=== PATIENT | female | born 1975 ===

== ENCOUNTER 2016-10-18 11:48 | Inpatient (IN) | payer MEDICAID ==
[2016-10-18 13:11] LABS: ADD MANUAL DIFF? NO
[2016-10-18 13:16] LABS: BASO # 0.02 K/mm3 (0.0-2.0); BASO % 0.2 % (0.0-3.0); EOS # 0.2 (0.0-0.7); EOS % 1.5 % (1.5-5.0); GRAN # 8.83 (1.4-6.5); GRAN % 79.9 % (50.0-68.0); HEMATOCRIT 36.5 % (36.0-48.0); LYMPH # 1.2 (1.2-3.4); LYMPH % 10.9 % (22.0-35.0); MEAN CELL VOLUME 88.2 fL (80.0-105.0); MEAN CORPUSCULAR HEMOGLOBIN 29.5 pg (25.0-35.0); MEAN CORPUSCULAR HGB CONC 33.4 g/dl (31.0-37.0); MEAN PLATELET VOLUME 9.9 fl (7.0-11.0); MONO # 0.8 (0.1-0.6); MONO % 7.5 % (1.0-6.0); PLATELET COUNT 233 10^3/uL (120.0-450.0); RED CELL DISTRIBUTION WIDTH 15.5 % (11.5-14.5); WHITE BLOOD COUNT 11.1 10^3/ul (4.5-11.0)
[2016-10-18 13:24] LABS: INR 0.96 (0.93-1.08); PARTIAL THROMBOPLASTIN TIME 24.2 Seconds (23.7-30.8)
[2016-10-18 13:25] LABS: ALB/GLOB RATIO 1.4 (1.1-1.8); ALKALINE PHOSPHATASE 63 U/L (38-133); ALT/SGPT 23 U/L (7-56); AST/SGOT 19 U/L (15-39); BILIRUBIN,TOTAL 0.4 mg/dL (0.2-1.3); BLOOD UREA NITROGEN 13 mg/dL (7-21); CALCIUM 9.3 mg/dL (8.4-10.5); CARBON DIOXIDE 22 mmol/L (21-33); CHLORIDE 108 mmol/L (98-107); GFR AFRICAN-AMERICAN > 60; GLUCOSE,RANDOM 130 mg/dL (70-110); MAGNESIUM 2.1 mg/dL (1.7-2.2); POTASSIUM 3.4 mmol/L (3.6-5.0); SODIUM 139 mmol/L (132-148); TOTAL PROTEIN 6.9 g/dL (5.8-8.3)
--- NOTE | 2016-10-18 13:37 | CT ---
PROCEDURE: CT HEAD WITHOUT CONTRAST. HISTORY: Sz vs Psych COMPARISON: 05/06/2016 TECHNIQUE: Axial computed tomography images were obtained through the head/brain without intravenous contrast. Radiation dose: Total exam DLP = 710.78 mGy-cm. This CT exam was performed using one or more of the following dose reduction techniques: Automated exposure control, adjustment of the mA and/or kV according to patient size, and/or use of iterative reconstruction technique. FINDINGS: HEMORRHAGE: No intracranial hemorrhage. BRAIN: There are scattered low-attenuation areas in the right parietal subcortical and periventricular white matter. There is no mass, mass effect or abnormal extra-axial fluid collection. VENTRICLES: There is mild global parenchymal volume loss and proportionate enlargement of the ventricles and cortical sulci, advanced for the patient's age. CALVARIUM: The skull base and calvarium are normal. PARANASAL SINUSES: Predominantly clear. MASTOID AIR CELLS: Predominantly clear. OTHER FINDINGS: None. IMPRESSION: No acute intracranial abnormality. Mild right periventricular and parietal subcortical white matter changes are strictly nonspecific. The differential considerations include gliosis, migraine headache effect, early chronic microangiopathic changes amongst others.
[2016-10-18] MEDS ORDERED: Potassium Chloride 20 mEq ER Tab PO STA (13:45)
--- NOTE | 2016-10-18 13:45 | ED PDOC ---
Arrival/HPI - General Chief Complaint: Altered Mental Status Time Seen by Provider: 10/18/16 12:12 Historian: Patient, EMS EM Caveat: Altered Mental Status - History of Present Illness Narrative History of Present Illness (Text): 10/18/16 12:20 A 40 year old female, whose past medical history includes anxiety and depression , who is brought into the emergency department via EMS. EMS states they were called my the patient's son this morning stating the patient is confused and had seizure like" activities. Patient denies any tongue bitting, diarrhea or blood in the stool or urine. Patient appears to the altered and HPI and ROS is limited. PMD: Dr. Ugarte Time/Duration: Prior to Arrival Symptom Onset: Sudden Past Medical History - Provider Review Nursing Documentation Reviewed: Yes - Infectious Disease Hx of Infectious Diseases: None - Tetanus Immunization Tetanus Immunization: Unknown - Cardiac Hx Cardiac Disorders: No Hx Hypertension: No - Pulmonary Hx Respiratory Disorders: No Hx Tuberculosis: No - Neurological Hx Seizures: No - HEENT Hx HEENT Disorder: No - Renal Hx Renal Disorder: No - Endocrine/Metabolic Hx Endocrine Disorders: No - Hematological/Oncological Hx Cancer: No - Integumentary Hx Dermatological Disorder: No - Musculoskeletal/Rheumatological Hx Falls: No - Gastrointestinal Hx Gastrointestinal Disorders: No - Genitourinary/Gynecological Hx Sexually Transmitted Diseases: No - Psychiatric Hx Psychophysiologic Disorder: Yes Hx Anxiety: Yes Hx Bipolar Disorder: Yes Hx Depression: Yes Hx Substance Use: No (denies) - Past Surgical History Past Surgical History: No Previous - Anesthesia Hx Anesthesia: No - Suicidal Assessment Feels Threatened In Home Enviroment: No Family/Social History - Physician Review Nursing Documentation Reviewed: Yes Family/Social History: Unknown Family HX Smoking Status: Former Smoker Hx Alcohol Use: No (denies) Hx Substance Use: No (denies) Hx Substance Use Treatment: No Allergies/Home Meds Allergies/Adverse Reactions: Allergies No Known Allergies Allergy (Verified 10/01/16 14:23) Home Medications: Home Meds Medication Instructions Recorded Confirmed Amphetamine Salt Combination 10 mg PO BID 10/01/16 10/01/16 [Adderall] Quetiapine Fumarate [Seroquel] 300 mg PO BID 10/01/16 10/01/16 Venlafaxine [Effexor] 75 mg PO BID 10/01/16 10/01/16 Zolpidem [Ambien] 10 mg PO HS 10/01/16 10/01/16 clonazePAM [clonAZEPAM] 1 mg PO BID 10/01/16 10/01/16 Review of Systems - Review of Systems Systems not reviewed;Unavailable: Altered Mental Status Gastrointestinal: absent: Diarrhea, Hematochezia Genitourinary Female: absent: Hematuria Physical Exam - Physical Exam Physical Exam Limitations: Altered Mental Status Vital Signs Reviewed: Yes Vital Signs Temp Pulse Resp BP Pulse Ox 10/18/16 14:09 109 H 16 135/67 100 10/18/16 12:07 98.1 F 124 H 16 152/97 H 98 Temperature: Afebrile Blood Pressure: Hypertensive Pulse: Tachycardic Respiratory Rate: Normal Appearance: Positive for: Well-Appearing, Non-Toxic, Comfortable Pain Distress: None Mental Status: Positive for: Confused, other (Alert and Oriented x 2 ) Finger Stick Blood Glucose: 249 - Systems Exam Head: Present: Atraumatic, Normocephalic Pupils: Present: PERRL Extroacular Muscles: Present: EOMI Conjunctiva: Present: Normal Mouth: Present: Moist Mucous Membranes Neck: Present: Normal Range of Motion Respiratory/Chest: Present: Clear to Auscultation, Good Air Exchange. No: Respiratory Distress, Accessory Muscle Use Cardiovascular: Present: Tachycardic. No: Murmurs Abdomen: Present: Normal Bowel Sounds. No: Tenderness, Distention, Peritoneal Signs Upper Extremity: Present: Normal Inspection. No: Cyanosis, Edema Lower Extremity: Present: Normal Inspection. No: Edema Neurological: Present: GCS=15, CN II-XII Intact, Speech Normal, Motor Func Grossly Intact, Normal Sensory Function Skin: Present: Warm, Dry, Normal Color. No: Rashes Psychiatric: Present: Other (Awake and Alert x 2; patient is able to answer questions but no all questions) Medical Decision Making ED Course and Treatment: 10/18/2016 13:32 Impression: A 40 year old female status post questionable seizure. Differential Diagnosis included but are not limited to: Psychiatric disorder vs. new onset seizure Plan: -- EKG -- Head CT -- Labs -- Urinalysis -- Reassess and disposition Prior Visits: Notes and results from previous visits were reviewed. On 10/01/16 Patient was seen for depression and admitted. Progress Notes: EKG: Ordered, reviewed, and independently interpreted the EKG. Rate : 130 BPM Rhythm : Sinus Tachycardia Interpretation : Normal interval, normal axis, no ST/T changes 10/18/2016 13:37 Creator : Lena Brunner MD PROCEDURE: CT HEAD WITHOUT CONTRAST. HISTORY: Sz vs Psych COMPARISON: 05/06/2016 FINDINGS: HEMORRHAGE:No intracranial hemorrhage. BRAIN:There are scattered low-attenuation areas in the right parietal subcortical and periventricular white matter. There is no mass, mass effect or abnormal extra-axial fluid collection. VENTRICLES:There is mild global parenchymal volume loss and proportionate enlargement of the ventricles and cortical sulci, advanced for the patient's age. CALVARIUM:The skull base and calvarium are normal. PARANASAL SINUSES:Predominantly clear. MASTOID AIR CELLS:Predominantly clear. OTHER FINDINGS:None. IMPRESSION:No acute intracranial abnormality. Mild right periventricular and parietal subcortical white matter changes are strictly nonspecific. The differential considerations include gliosis, migraine headache effect, early chronic microangiopathic changes amongst others. 10/18/16 13:45 Patient had a low potassium count, will give K-Dur 10/18/16 14:[address] Alex, who is aware and agrees with the plan to admit the patient to Telemetry under her service for a new onset seizure. 10/18/16 14:24 Patient actively seizing in emergency department. The episode lasted for less than a minute, after which the patient was postictal. patient given 2 mg of Ativan. I have discussed the results and plan with the patient's son, who expresses understanding. Patient's son given the opportunity to ask question, all questions were answered and there is agreement with the plan to be admitted to the hospital. - Critical Care Critical Care Minutes: 45 minutes - Lab Interpretations Lab Results: 10/18/16 13:00 10/18/16 13:00 Lab Results 10/18/16 13:00: PT 10.4, INR 0.96, APTT 24.2 10/18/16 13:00: Alcohol, Quantitative < 10 10/18/16 13:00: Sodium 139, Potassium 3.4 L, Chloride 108 H, Carbon Dioxide 22, Anion Gap 12, BUN 13, Creatinine 1.0, Est GFR ( Amer) > 60, Est GFR (Non- Af Amer) > 60, Random Glucose 130 H, Calcium 9.3, Magnesium 2.1, Total Bilirubin 0.4, AST 19, ALT 23, Alkaline Phosphatase 63, Total Protein 6.9, Albumin 4.1, Globulin 2.9, Albumin/Globulin Ratio 1.4 10/18/16 13:00: WBC 11.1 H D, RBC 4.14, Hgb 12.2, Hct 36.5, MCV 88.2, MCH 29.5, MCHC 33.4, RDW 15.5 H, Plt Count 233, MPV 9.9, Gran % 79.9 H, Lymph % (Auto) 10.9 L, [place] % (Auto) 7.5 H, Eos % (Auto) 1.5, Baso % (Auto) 0.2, Gran # 8.83 H , Lymph # 1.2, [place] # 0.8 H, Eos # 0.2, Baso # 0.02 10/18/16 11:56: POC Glucose (mg/dL) 246 H I have reviewed the lab results: Yes - RAD Interpretation Radiology Orders: 10/18/16 12:38 HEAD W/O CONTRAST [CT] Stat - EKG Interpretation Interpreted by ED Physician: Yes Type: 12 lead EKG - Medication Orders Current Medication Orders: Sodium Chloride (Sodium Chloride 0.9%) 1,000 mls @ 100 mls/hr IV .Q10H TEJINDER Levetiracetam (Keppra 500mg Ivpb) 500 mg in 100 mls @ 200 mls/hr IVPB Q12H TEJINDER Lorazepam (Ativan) 1 mg IVP Q3 PRN; Protocol PRN Reason: Anxiety Pantoprazole Sodium (Protonix Inj) 40 mg IVP DAILY TEJINDER Discontinued Medications Levetiracetam 500 mg/ Sodium (Chloride) 105 mls @ 460 mls/hr IV Q12 TEJINDER Lorazepam (Ativan) Confirm Administered Dose 2 mg .ROUTE .STK-MED ONE Stop: 10/18/16 14:26 Last Admin: 10/18/16 14:58 Dose: Lorazepam (Ativan) 2 mg IVP ONCE ONE PRN Reason: Protocol Stop: 10/18/16 14:46 Last Admin: 10/18/16 14:30 Dose: 2 mg Potassium Chloride (K-Dur 20 Meq Er Tab) 40 meq PO STAT STA Stop: 10/18/16 13:46 Last Admin: 10/18/16 14:14 Dose: 40 meq - Scribe Statement The provider has reviewed the documentation as recorded by the Scribe Kaley Mistry training under Shayla Winkler Provider Scribe Attestation: All medical record entries made by the Scribe were at my direction and personally dictated by me. I have reviewed the chart and agree that the record accurately reflects my personal performance of the history, physical exam, medical decision making, and the department course for this patient. I have also personally directed, reviewed, and agree with the discharge instructions and disposition. Disposition/Present on Arrival - Present on Arrival Any Indicators Present on Arrival: No History of DVT/PE: No History of Uncontrolled Diabetes: No Urinary Catheter: No History of Decub. Ulcer: No History Surgical Site Infection Following: None - Disposition Have Diagnosis and Disposition been Completed?: Yes Diagnosis: New onset seizure Disposition: HOSPITALIZED Disposition Time: 14:20 Patient Plan: Admission Condition: FAIR
[2016-10-18] MEDS ORDERED: Sodium Chloride 0.9% 1,000 ML IV SCH (15:00)
--- NOTE | 2016-10-18 15:21 | CP.PCM.HP ---
<Derian No - Last Filed: 10/18/16 15:29> History of Present Illness - History of Present Illness History of Present Illness: CC: Witnessed seizure 40 yo F with extensive psychiatric history and multiple psychiatric hospitalizations with previous suicidal attempt by drug overdose presented to ED by EMS following a witnessed seizure by son. Pt was in bed and speaking with her son when the first seizure occurred. Pt's son turned the pt on her side and cleared her airway until EMS arrived. Pt was in ED and with her son when a second seizure occurred, again witnessed by son. Pt was administered ativan at the time. Pt son was at bedside and noted that pt has been known to take more than prescribed doses of her medications as well as medications obtained off the streets. ROS unavailable due to pt clinical status. PMHx: Anxiety, Bipolar disorder, Depression, suicide attempt by drug OD 2015 PSHx: None Social Hx: smokes 1ppd on-off x 20 years, Lives at home with son (abuses benzo) , Unemployed - on disability FamHx: As per son, aunt and cousin have hx of seizure. Son also had a seizure following benzo overdose Allergies: NKDA Meds: Mar Reviewed Present on Admission - Present on Admission Any Indicators Present on Admission: No Review of Systems - Review of Systems Systems not reviewed;Unavailable: Acuity of Condition, Altered Mental Status Past Patient History - Infectious Disease Hx of Infectious Diseases: None - Tetanus Immunizations Tetanus Immunization: Unknown - Past Medical History & Family History Past Medical History?: Yes - Past Social History Smoking Status: Former Smoker - CARDIAC Hx Cardiac Disorders: No Hx Hypertension: No - PULMONARY Hx Respiratory Disorders: No Hx Tuberculosis: No - NEUROLOGICAL Hx Seizures: No - HEENT Hx HEENT Problems: No - RENAL Hx Chronic Kidney Disease: No - ENDOCRINE/METABOLIC Hx Endocrine Disorders: No - HEMATOLOGICAL/ONCOLOGICAL Hx Cancer: No - INTEGUMENTARY Hx Dermatological Problems: No - MUSCULOSKELETAL/RHEUMATOLOGICAL Hx Falls: No - GASTROINTESTINAL Hx Gastrointestinal Disorders: No - GENITOURINARY/GYNECOLOGICAL Hx Sexually Transmitted Disorders: No - PSYCHIATRIC Hx Psychophysiologic Disorder: Yes Hx Anxiety: Yes Hx Bipolar Disorder: Yes Hx Depression: Yes Hx Substance Use: No (denies) - SURGICAL HISTORY Hx Surgeries: No - ANESTHESIA Hx Anesthesia: No Meds Allergies/Adverse Reactions: Allergies Allergy/AdvReac Type Severity Reaction Status Date / Time No Known Allergies Allergy Verified 10/01/16 14:23 Physical Exam - Constitutional Appears: No Acute Distress - Head Exam Head Exam: ATRAUMATIC, NORMAL INSPECTION, NORMOCEPHALIC - Eye Exam Eye Exam: EOMI, Normal appearance, PERRL Pupil Exam: NORMAL ACCOMODATION, PERRL - ENT Exam ENT Exam: Mucous Membranes Moist, Normal Exam - Neck Exam Neck exam: Positive for: Normal Inspection - Respiratory Exam Respiratory Exam: Clear to Auscultation Bilateral, NORMAL BREATHING PATTERN - Cardiovascular Exam Cardiovascular Exam: REGULAR RHYTHM - GI/Abdominal Exam GI & Abdominal Exam: Normal Bowel Sounds, Soft - Extremities Exam Extremities exam: Positive for: normal inspection. Negative for: pedal edema - Neurological Exam Neurological exam: Altered - Skin Skin Exam: Dry, Intact, Normal Color, Warm Results - Vital Signs Recent Vital Signs: Last Vital Signs Temp 98.1 F 10/18/16 12:07 Pulse 109 H 10/18/16 14:09 Resp 16 10/18/16 14:09 BP 135/67 10/18/16 14:09 Pulse Ox 100 10/18/16 14:09 - Labs Result Diagrams: 10/18/16 13:00 10/18/16 13:00 Labs: Laboratory Results - last 24 hr 10/18/16 14:30 Salicylates < 1 L Acetaminophen < 10.0 L Assessment & Plan - Assessment and Plan (Free Text) Assessment: 40 F with PMHx significant for anxiety, depression and bipolar dsr presenting with AMS following witnessed seizures x2. AMS - Seizure x2 - likely secondary to polypharmacy - fu acetaminophen/salycilates levels - Ativan prn - Keppre iv - Neuro consultes, Dr. Jaydon Osuna appreciate recs - EEG - aspiration ppx, fall ppx, seizure ppx - fu labs - npo Tachycardia - likely secondary to above - ivf - continue to monitor Anxiety/depression - psych consulted, Dr. Krishnan - hold off on psych meds for now GI DVT ppx reviewed Seen reviewed and discussed with Dr. Alex <Maru Alex - Last Filed: 10/18/16 17:11> Results - Vital Signs Recent Vital Signs: Last Vital Signs Temp 98.1 F 10/18/16 12:07 Pulse 109 H 10/18/16 14:09 Resp 16 10/18/16 14:09 BP 135/67 10/18/16 14:09 Pulse Ox 100 10/18/16 14:09 - Labs Result Diagrams: 10/18/16 13:00 10/18/16 13:00 Labs: Laboratory Results - last 24 hr 10/18/16 10/18/16 10/18/16 14:30 15:50 15:50 Urine Color Light yellow Urine Appearance Cloudy Urine pH 6.0 Ur Specific [place] >= 1.030 Urine Protein 100 H Urine Glucose (UA) Negative Urine Ketones Negative Urine Blood Negative Urine Nitrate Negative Urine Bilirubin Negative Urine Urobilinogen 1.0 H Ur Leukocyte Esterase Negative Urine RBC Negative Urine WBC 0 - 2 Ur Epithelial Cells 1 - 3 Amorphous Sediment Moderate Urine Bacteria Many Urine Other Uyeast Salicylates < 1 L Urine Opiates Screen Negative Urine Methadone Screen Negative Acetaminophen < 10.0 L Ur Barbiturates Screen Negative Ur Phencyclidine Scrn Negative Ur Amphetamines Screen Negative U Benzodiazepines Scrn Positive H U Oth Cocaine Metabols Negative U Cannabinoids Screen Negative Attending/Attestation - Attestation I have personally seen and examined this patient.: Yes I have fully participated in the care of the patient.: Yes I have reviewed all pertinent clinical information: Yes Notes (Text): 10/18/16 17:07 attending note; Patient seen and examined with resident in ER. Patient's son by the bedside. History from patient's son. Patient is a 40-year-old female brought in to the ER after a missed seizure episode morning by patient's son. patient's son is sure aboutthe medication she took. Patient is on Klonopin and other psychiatric meds. Patient also takes medication from the street. Patient had a second episode of generalized clonic tonic seizure in the ER. Currently on nonrebreather. Tachycardic. Postictal/just got IV Ativan. Admit the patient to ICU. seizure secondary to drug overdose. Will call poison control. Continue IV fluids. Urine drug screen ordered. Alcohol level is <10. Tylenol and salicylate negative. Started on IV Keppra. Continue Ativan when necessary. EEG ordered. Neurology evaluation requested. We will get psychiatrist evaluation in am. case discussed with flame burner in detail.
--- NOTE | 2016-10-18 15:58 | CP.PCM.CON ---
<Iliana Soto - Last Filed: 10/18/16 16:53> History of Present Illness - History of Present Illness History of Present Illness: PGY-[address] Cabrera CC: Seizure 2/2 overdose, prolong QT 560 40 yo F with extensive psychiatric history and multiple psychiatric hospitalizations with previous suicidal attempt by drug overdose presented to ED by EMS following a witnessed seizures x 2 by son. History was provided by son , Irineo, 19 y.o., . Pt was nervous today because son went to court at 9am. It was suspected that pt ingested medications to calm herself between 9AM and 10AM. When son came back home, found mom in bed, looked diaphoretic. Pt states that she was nervous, not feeling well, took some meds to help fall asleep. Pt was in bed and speaking with her son when seizure occurred. Pt was shaking, eye rolling, foaming in mouth. Pt's son turned the pt on her side and cleared her airway until EMS arrived. In ED, pt seized again, tonic clonic. Pt was administered ativan 2mg x 1. Pt son was at bedside and noted that pt has been known to take more than prescribed doses of her medications as well as medications obtained off the streets. Pt smoke marijunana at times but son denies lacing. ROS unavailable due to pt clinical status. PMHx: Anxiety, Bipolar disorder, Depression, suicide attempt by drug OD [address] drugs PSHx: None FamHx: As per son, aunt and cousin have hx of seizure. Son also had a seizure following benzo overdose Social Hx: smokes 1ppd on-off x 20 years, Lives at home with son (abuses benzo) , Unemployed - on disability Prescription drug abuse Street drugs [place] Allergies: NKDA Meds: Pharmacy callled by Darya, ICU resident. [facility], nima nicole (champion) Jared: Nicotine patch, hydroxyzine 50, seroquel 100 tid, zoloft 50 stephanie: seroquel 300 qHS, seroquel 200 qd, effecor 150 qd, trazodone 100 mg qd 10/09: klonapon 1mg bid, effexor 75 bid, ambien 10 HS - september 10, adderal 10 bid, albuterol, seroquel 300 bid PMD: Dr. Yang roberto Past Patient History - Infectious Disease Hx of Infectious Diseases: None - Tetanus Immunizations Tetanus Immunization: Unknown - Past Medical History & Family History Past Medical History?: Yes - Past Social History Smoking Status: Former Smoker - CARDIAC Hx Cardiac Disorders: No Hx Hypertension: No - PULMONARY Hx Respiratory Disorders: No Hx Tuberculosis: No - NEUROLOGICAL Hx Seizures: No - HEENT Hx HEENT Problems: No - RENAL Hx Chronic Kidney Disease: No - ENDOCRINE/METABOLIC Hx Endocrine Disorders: No - HEMATOLOGICAL/ONCOLOGICAL Hx Cancer: No - INTEGUMENTARY Hx Dermatological Problems: No - MUSCULOSKELETAL/RHEUMATOLOGICAL Hx Falls: No - GASTROINTESTINAL Hx Gastrointestinal Disorders: No - GENITOURINARY/GYNECOLOGICAL Hx Sexually Transmitted Disorders: No - PSYCHIATRIC Hx Psychophysiologic Disorder: Yes Hx Anxiety: Yes Hx Bipolar Disorder: Yes Hx Depression: Yes Hx Substance Use: No (denies) - SURGICAL HISTORY Hx Surgeries: No - ANESTHESIA Hx Anesthesia: No Meds Allergies/Adverse Reactions: Allergies Allergy/AdvReac Type Severity Reaction Status Date / Time No Known Allergies Allergy Verified 10/01/16 14:23 - Medications Medications: Current Medications Sodium Chloride (Sodium Chloride 0.9%) 1,000 mls @ 100 mls/hr IV .Q10H TEJINDER Levetiracetam (Keppra 500mg Ivpb) 500 mg in 100 mls @ 200 mls/hr IVPB Q12H TEJINDER Lorazepam (Ativan) 1 mg IVP Q3 PRN; Protocol PRN Reason: Anxiety Pantoprazole Sodium (Protonix Inj) 40 mg IVP DAILY TEJINDER Physical Exam - Constitutional Appears: Confused - Head Exam Head Exam: ATRAUMATIC, NORMAL INSPECTION, NORMOCEPHALIC - Eye Exam Eye Exam: EOMI, Nystagmus (horizontal), PERRL. absent: Scleral icterus Additional comments: tongue biting L - ENT Exam ENT Exam: Mucous Membranes Moist - Neck Exam Neck exam: Negative for: Meningismus - Respiratory Exam Respiratory Exam: Clear to Auscultation Bilateral, NORMAL BREATHING PATTERN. absent: Rales, Rhonchi, Wheezes - Cardiovascular Exam Cardiovascular Exam: Tachycardia, REGULAR RHYTHM, +S1, +S2. absent: Systolic Murmur - GI/Abdominal Exam GI & Abdominal Exam: Normal Bowel Sounds, Soft. absent: Distended, Firm, Guarding, Rigid, Tenderness - Extremities Exam Extremities exam: Positive for: normal capillary refill, pedal pulses present. Negative for: pedal edema - Neurological Exam Neurological exam: Altered, Oriented x3 Additional comments: occasionally follow command. sensory motor grossly intact. - Psychiatric Exam Additional comments: Short focus and attention. No slurr in speech. conversation Out of context. - Skin Skin Exam: Dry, Warm Results - Vital Signs Recent Vital Signs: Last Vital Signs Temp 98.1 F 10/18/16 12:07 Pulse 109 H 10/18/16 14:09 Resp 16 10/18/16 14:09 BP 135/67 10/18/16 14:09 Pulse Ox 100 10/18/16 14:09 - Labs Result Diagrams: 10/18/16 13:00 10/18/16 13:00 Labs: Laboratory Results - last 24 hr 10/18/16 14:30 Salicylates < 1 L Acetaminophen < 10.0 L Assessment & Plan - Assessment and Plan (Free Text) Plan: 40 F overdose on psych meds, developed seizure and QT prolongation with mentation fluctuation. Neuro Poison control called. [facility] EEG stat ativan PRN supportive care seizure & aspiration precaution. keppra loading at 1 g and maintain at 500mg bid Cardio EKG q2 to monitor worsenining QTc Pulm O2 NC as needed GI No active issue NS@150 strict i/o and payne CMP, mg, phos q4; corrected if needed No gap Endo No active issue Heme No active issue Infectious No active issue Psych left message on Psych conseult 1:1 if express suicidal Prophylasxis SCD - Date & Time Date: 10/18/16 Time: 16:40 <Jose F Cabrera MD - Last Filed: 10/18/16 17:20> Meds - Medications Medications: Current Medications Levetiracetam (Keppra 500mg Ivpb) 500 mg in 100 mls @ 200 mls/hr IVPB Q12H TEJINDER Sodium Chloride (Sodium Chloride 0.9%) 1,000 mls @ 150 mls/hr IV .Q6H40M TEJINDER Sodium Chloride (Sodium Chloride 0.9%) 2,000 mls @ 999 mls/hr IV .Q2H1M STA Stop: 10/18/16 18:49 Lorazepam (Ativan) 1 mg IVP Q3 PRN; Protocol PRN Reason: Anxiety Pantoprazole Sodium (Protonix Inj) 40 mg IVP DAILY TEJINDER Results - Vital Signs Recent Vital Signs: Last Vital Signs Temp 98.1 F 10/18/16 12:07 Pulse 109 H 10/18/16 14:09 Resp 16 10/18/16 14:09 BP 135/67 10/18/16 14:09 Pulse Ox 100 10/18/16 14:09 - Labs Result Diagrams: 10/18/16 13:00 10/18/16 13:00 Labs: Laboratory Results - last 24 hr 10/18/16 10/18/16 10/18/16 14:30 15:50 15:50 Urine Color Light yellow Urine Appearance Cloudy Urine pH 6.0 Ur Specific [place] >= 1.030 Urine Protein 100 H Urine Glucose (UA) Negative Urine Ketones Negative Urine Blood Negative Urine Nitrate Negative Urine Bilirubin Negative Urine Urobilinogen 1.0 H Ur Leukocyte Esterase Negative Urine RBC Negative Urine WBC 0 - 2 Ur Epithelial Cells 1 - 3 Amorphous Sediment Moderate Urine Bacteria Many Urine Other Uyeast Salicylates < 1 L Urine Opiates Screen Negative Urine Methadone Screen Negative Acetaminophen < 10.0 L Ur Barbiturates Screen Negative Ur Phencyclidine Scrn Negative Ur Amphetamines Screen Negative U Benzodiazepines Scrn Positive H U Oth Cocaine Metabols Negative U Cannabinoids Screen Negative Attending/Attestation - Attestation I have personally seen and examined this patient.: Yes I have fully participated in the care of the patient.: Yes I have reviewed all pertinent clinical information: Yes Notes (Text): 10/18/16 17:15 40 y/o F w/ OD of multiple drugs Benzodiazapenes, SSRi,SNRI,Stimulants. Witnessed seizure x 2. Currently aao x 3 but has altered mind state at times and answeres questions inappropriately . QTC prolongation on EKG. Head CT reviewed , no acute issues. Protecting airway, follows commands . Tachycardic BP WNL. Plan IV hydration 2 more L of NS and 150ml.hr . Follow q4 bmp for any signs of AG metabolic acidosis Watch for further seizures , neurochecks q 1 hrs , Keppra load. , EEG ordered , Neurology and Psych consulted. Hold all medications, PRN Ativan if withdrawl or seizures present. Monitor Blood sugars, EKG q6hrs to watch for qtc worsening. May need cardiology if HB or arrythmias are present. Monitor MG, K and keep repleted. DVT p PPI cc time 65 min
[2016-10-18 16:28] LABS: URINE BILIRUBIN NEGATIVE (NEGATIVE); URINE BLOOD NEGATIVE (NEGATIVE); URINE GLUCOSE (UA) NEGATIVE (NEGATIVE); URINE KETONE NEGATIVE (NEGATIVE); URINE LEUKOCYTE ESTERASE NEGATIVE Leu/uL (NEGATIVE); URINE PROTEIN 100 mg/dL (<30 mg/dL)
[2016-10-18 16:37] LABS: URINE APPEARANCE CLOUDY (CLEAR); URINE COLOR LIGHT YELLOW (YELLOW)
[2016-10-18 16:41] LABS: URINE BACTERIA MANY (NEG); URINE RBC NEGATIVE /hpf (0-2); URINE WBC 0 - 2 /hpf (0-6)
[2016-10-18 16:42] LABS: URINE AMORPHOUS SEDIMENT MODERATE
[2016-10-18] MEDS ORDERED: levETIRAcetam 500 MG in Sodium Chloride 0.9% 100 ML IV STA (16:45)
[2016-10-18] MEDS ORDERED: Sodium Chloride 0.9% 2,000 ML IV STA (16:49)
[2016-10-18] MEDS: levETIRAcetam 500mg IVPB 500 MG/100 ML BAG IVPB SCH ×2 (17:13→18:12)
[2016-10-18] MEDS: Sodium Chloride 0.9% 1,000 ML IV SCH (17:36)
[2016-10-18 20:50] VITALS: BMI 44.2
[2016-10-18] MEDS ORDERED: Pneumococcal 23-Valent Vaccine IM ONE (20:51)
[2016-10-18 21:15] LABS: ALB/GLOB RATIO 1.4 (1.1-1.8); ALKALINE PHOSPHATASE 76 U/L (38-133); ALT/SGPT 24 U/L (7-56); AST/SGOT 20 U/L (15-39); BILIRUBIN,TOTAL 0.5 mg/dL (0.2-1.3); BLOOD UREA NITROGEN 11 mg/dL (7-21); CALCIUM 8.9 mg/dL (8.4-10.5); CARBON DIOXIDE 22 mmol/L (21-33); CHLORIDE 110 mmol/L (98-107); GFR AFRICAN-AMERICAN > 60; GLUCOSE,RANDOM 84 mg/dL (70-110); MAGNESIUM 2.4 mg/dL (1.7-2.2); PHOSPHOROUS 3.3 mg/dL (2.5-4.5); POTASSIUM 3.9 mmol/L (3.6-5.0); SODIUM 140 mmol/L (132-148); TOTAL PROTEIN 7.2 g/dL (5.8-8.3)
[2016-10-18] MEDS ORDERED: levETIRAcetam 500 MG in Sodium Chloride 0.9% 100 ML IV SCH (22:00)
[2016-10-18] MEDS ORDERED: levETIRAcetam 500mg IVPB 500 MG/100 ML BAG IVPB SCH (22:00)
--- NOTE | 2016-10-18 23:29 | CARD ---
APPROVED REPORT EKG Measurement Heart [id number] MD [id number] <Conclusion> Normal sinus rhythm Normal ECG
--- NOTE | 2016-10-18 23:31 | CARD ---
APPROVED REPORT EKG Measurement Heart [id number] MT [id number] <Conclusion> Sinus tachycardia Low voltage QRS Borderline ECG
--- NOTE | 2016-10-18 23:39 | CARD ---
APPROVED REPORT EKG Measurement Heart [id number] HI [id number] <Conclusion> Sinus tachycardia Otherwise normal ECG
[2016-10-19] MEDS: Sodium Chloride 0.9% 1,000 ML IV SCH ×3 (00:04→12:44)
[2016-10-19 01:10] LABS: ALKALINE PHOSPHATASE 38 U/L (38-133); ALT/SGPT 20 U/L (7-56); AST/SGOT 21 U/L (15-39); BILIRUBIN,TOTAL 0.3 mg/dL (0.2-1.3); BLOOD UREA NITROGEN 7 mg/dL (7-21); CARBON DIOXIDE 17 mmol/L (21-33); CHLORIDE 119 mmol/L (98-107); GFR AFRICAN-AMERICAN > 60; GLUCOSE,RANDOM 65 mg/dL (70-110); MAGNESIUM 1.6 mg/dL (1.7-2.2); PHOSPHOROUS 2.2 mg/dL (2.5-4.5); SODIUM 139 mmol/L (132-148); TOTAL PROTEIN 4.7 g/dL (5.8-8.3)
[2016-10-19 01:20] LABS: CALCIUM 5.9 mg/dL (8.4-10.5)
[2016-10-19] MEDS ORDERED: Magnesium Sulfate 1 gm in D5W 1 GM/100 ML BAG IVPB ONE (02:07)
[2016-10-19 04:38] LABS: ADD MANUAL DIFF? NO
[2016-10-19] MEDS: levETIRAcetam 500mg IVPB 500 MG/100 ML BAG IVPB SCH (04:45)
[2016-10-19 04:54] LABS: BASO # 0.02 K/mm3 (0.0-2.0); BASO % 0.2 % (0.0-3.0); EOS # 0.3 (0.0-0.7); EOS % 3.8 % (1.5-5.0); GRAN % 57.3 % (50.0-68.0); HEMATOCRIT 35.2 % (36.0-48.0); LYMPH # 2.4 (1.2-3.4); LYMPH % 29.6 % (22.0-35.0); MEAN CELL VOLUME 88.7 fL (80.0-105.0); MEAN CORPUSCULAR HEMOGLOBIN 28.2 pg (25.0-35.0); MEAN CORPUSCULAR HGB CONC 31.8 g/dl (31.0-37.0); MEAN PLATELET VOLUME 9.8 fl (7.0-11.0); MONO # 0.8 (0.1-0.6); MONO % 9.1 % (1.0-6.0); PLATELET COUNT 243 10^3/uL (120.0-450.0); RED CELL DISTRIBUTION WIDTH 15.7 % (11.5-14.5); WHITE BLOOD COUNT 8.2 10^3/ul (4.5-11.0)
[2016-10-19 05:31] LABS: ALB/GLOB RATIO 1.3 (1.1-1.8); ALKALINE PHOSPHATASE 65 U/L (38-133); ALT/SGPT 25 U/L (7-56); AST/SGOT 14 U/L (15-39); BILIRUBIN,TOTAL 0.5 mg/dL (0.2-1.3); BLOOD UREA NITROGEN 8 mg/dL (7-21); CARBON DIOXIDE 21 mmol/L (21-33); CHLORIDE 112 mmol/L (98-107); GFR AFRICAN-AMERICAN > 60; GLUCOSE,RANDOM 81 mg/dL (70-110); MAGNESIUM 2.2 mg/dL (1.7-2.2); PHOSPHOROUS 3.1 mg/dL (2.5-4.5); POTASSIUM 4.2 mmol/L (3.6-5.0); SODIUM 140 mmol/L (132-148); TOTAL PROTEIN 6.2 g/dL (5.8-8.3)
--- NOTE | 2016-10-19 09:18 | CP.CCUPN ---
<Iliana Soto - Last Filed: 10/19/16 13:29> CCU Subjective - Physician Review Subjective (Free Text): 10/19/16 09:17 No seizure observed overnight. denies CP, Sob, N/V CCU Objective - Vital Signs / Intake & Output Vital Signs (Last 4 hours): Vital Signs Temp Pulse Resp BP Pulse Ox 10/19/16 08:10 97 10/19/16 08:00 124/75 95 10/19/16 07:50 96 10/19/16 07:40 96 10/19/16 07:30 95 10/19/16 07:20 96 10/19/16 07:10 107 H 69 H 95 10/19/16 07:00 90 19 98/62 L 96 10/19/16 06:50 92 H 16 96 10/19/16 06:40 92 H 19 96 10/19/16 06:30 93 H 19 96 10/19/16 06:20 91 H 17 96 10/19/16 06:10 89 17 96 10/19/16 06:01 97 H 26 H 101/67 100 10/19/16 06:00 98.6 F 89 17 97 10/19/16 05:50 89 20 97 10/19/16 05:40 88 16 97 10/19/16 05:30 91 H 18 97 10/19/16 05:20 89 19 97 Intake and Output (Last 8hrs): Intake & Output 10/18/16 10/19/16 10/19/16 22:59 06:59 14:59 Intake Total 200 Output Total 200 Balance 0 Weight 250 lb Intake: Other 200 Output: Urine 200 2-way Urethral 200 Other: Voiding Method Indwelling Catheter - Physical Exam Head: Positive for: Atraumatic, Normocephalic Pupils: Positive for: PERRL Extroacular Muscles: Positive for: EOMI Conjunctiva: Positive for: Normal Mouth: Positive for: Moist Mucous Membranes Neck: Positive for: Normal Range of Motion Respiratory/Chest: Positive for: Clear to Auscultation, Good Air Exchange. Negative for: Respiratory Distress, Accessory Muscle Use Cardiovascular: Positive for: Tachycardic. Negative for: Murmurs Abdomen: Positive for: Normal Bowel Sounds. Negative for: Tenderness, Distention, Peritoneal Signs Upper Extremity: Positive for: Normal Inspection. Negative for: Cyanosis, Edema Lower Extremity: Positive for: Normal Inspection. Negative for: Edema Neurological: Positive for: GCS=15, CN II-XII Intact, Speech Normal, Motor Func Grossly Intact, Normal Sensory Function Skin: Positive for: Warm, Dry, Normal Color. Negative for: Rashes Psychiatric: Positive for: Oriented x 3 - Medications Active Medications: Active Medications Generic Name Dose Route Start Last Admin Trade Name Freq PRN Reason Stop Dose Admin Levetiracetam 500 mg in 100 mls @ 200 mls/hr 10/18/16 15:45 10/19/16 04:45 Keppra 500mg Ivpb IVPB 200 mls/hr Q12H TEJINDER Administration Sodium Chloride 1,000 mls @ 150 mls/hr 10/18/16 16:49 10/19/16 08:24 Sodium Chloride 0.9% IV 150 mls/hr .Q6H40M TEJINDER Administration Lorazepam 1 mg 10/18/16 15:07 Ativan IVP Q3 PRN Anxiety Protocol Pantoprazole Sodium 40 mg 10/18/16 15:00 10/18/16 17:13 Protonix Inj IVP 40 mg DAILY TEJINDER Administration - Patient Studies Lab Studies: Lab Studies 10/19/16 10/19/16 10/19/16 Range/Units 04:15 04:15 00:20 WBC 8.2 D (4.5-11.0) 10^3/ul RBC 3.97 (3.5-6.1) 10^6/uL Hgb 11.2 L (12.0-16.0) gm/dL Hct 35.2 L (36.0-48.0) % MCV 88.7 (80.0-105.0) fL MCH 28.2 (25.0-35.0) pg MCHC 31.8 (31.0-37.0) g/dl RDW 15.7 H (11.5-14.5) % Plt Count 243 (120.0-450.0) 10^3/uL MPV 9.8 (7.0-11.0) fl Gran % 57.3 (50.0-68.0) % Lymph % (Auto) 29.6 (22.0-35.0) % [place] % (Auto) 9.1 H (1.0-6.0) % Eos % (Auto) 3.8 (1.5-5.0) % Baso % (Auto) 0.2 (0.0-3.0) % Gran # 4.70 (1.4-6.5) Lymph # 2.4 (1.2-3.4) [place] # 0.8 H (0.1-0.6) Eos # 0.3 (0.0-0.7) Baso # 0.02 (0.0-2.0) K/mm3 Sodium 140 139 (132-148) mmol/L Potassium 4.2 3.0 L (3.6-5.0) mmol/L Chloride 112 H 119 H (98-107) mmol/L Carbon Dioxide 21 17 L (21-33) mmol/L Anion Gap 11 6 L (10-20) BUN 8 7 (7-21) mg/dL Creatinine 0.8 0.6 (0.5-1.4) mg/dL Est GFR ( Amer) > 60 > 60 Est GFR (Non-Af Amer) > 60 > 60 Random Glucose 81 65 L (70-110) mg/dL Calcium 9.0 5.9 L* (8.4-10.5) mg/dL Phosphorus 3.1 2.2 L (2.5-4.5) mg/dL Magnesium 2.2 1.6 L (1.7-2.2) mg/dL Total Bilirubin 0.5 0.3 (0.2-1.3) mg/dL AST 14 L 21 (15-39) U/L ALT 25 20 (7-56) U/L Alkaline Phosphatase 65 38 (38-133) U/L Total Creatine Kinase (35-230) U/L Total Protein 6.2 4.7 L (5.8-8.3) g/dL Albumin 3.6 2.3 L (3.0-4.8) g/dL Globulin 2.7 2.4 gm/dL Albumin/Globulin Ratio 1.3 1.0 L (1.1-1.8) Urine Color (YELLOW) Urine Appearance (CLEAR) Urine pH (4.7-8.0) Ur Specific [place] (1.005-1.035) Urine Protein (<30 mg/dL) mg/dL Urine Glucose (UA) (NEGATIVE) mg/dL Urine Ketones (NEGATIVE) mg/dL Urine Blood (NEGATIVE) Urine Nitrate (NEGATIVE) Urine Bilirubin (NEGATIVE) Urine Urobilinogen (<1 E.U./dL) E.U./dL Ur Leukocyte Esterase (NEGATIVE) [place]/uL Urine RBC (0-2) /hpf Urine WBC (0-6) /hpf Ur Epithelial Cells (0-5) /hpf Amorphous Sediment Urine Bacteria (NEG) Urine Other Salicylates (2.0-20.0) mg/dL Urine Opiates Screen (NEGATIVE) Urine Methadone Screen (NEGATIVE) Acetaminophen (10.0-20.0) ug/ml Ur Barbiturates Screen (NEGATIVE) Ur Phencyclidine Scrn (NEGATIVE) Ur Amphetamines Screen (NEGATIVE) U Benzodiazepines Scrn (NEGATIVE) U Oth Cocaine Metabols (NEGATIVE) U Cannabinoids Screen (NEGATIVE) 10/18/16 10/18/16 10/18/16 Range/Units 20:50 15:50 15:50 WBC (4.5-11.0) 10^3/ul RBC (3.5-6.1) 10^6/uL Hgb (12.0-16.0) gm/dL Hct (36.0-48.0) % MCV (80.0-105.0) fL MCH (25.0-35.0) pg MCHC (31.0-37.0) g/dl RDW (11.5-14.5) % Plt Count (120.0-450.0) 10^3/uL MPV (7.0-11.0) fl Gran % (50.0-68.0) % Lymph % (Auto) (22.0-35.0) % [place] % (Auto) (1.0-6.0) % Eos % (Auto) (1.5-5.0) % Baso % (Auto) (0.0-3.0) % Gran # (1.4-6.5) Lymph # (1.2-3.4) [place] # (0.1-0.6) Eos # (0.0-0.7) Baso # (0.0-2.0) K/mm3 Sodium 140 (132-148) mmol/L Potassium 3.9 (3.6-5.0) mmol/L Chloride 110 H (98-107) mmol/L Carbon Dioxide 22 (21-33) mmol/L Anion Gap 12 (10-20) BUN 11 (7-21) mg/dL Creatinine 0.9 (0.5-1.4) mg/dL Est GFR ( Amer) > 60 Est GFR (Non-Af Amer) > 60 Random Glucose 84 (70-110) mg/dL Calcium 8.9 (8.4-10.5) mg/dL Phosphorus 3.3 (2.5-4.5) mg/dL Magnesium 2.4 H (1.7-2.2) mg/dL Total Bilirubin 0.5 (0.2-1.3) mg/dL AST 20 (15-39) U/L ALT 24 (7-56) U/L Alkaline Phosphatase 76 (38-133) U/L Total Creatine Kinase 56 (35-230) U/L Total Protein 7.2 (5.8-8.3) g/dL Albumin 4.2 (3.0-4.8) g/dL Globulin 3.0 gm/dL Albumin/Globulin Ratio 1.4 (1.1-1.8) Urine Color Light yellow (YELLOW) Urine Appearance Cloudy (CLEAR) Urine pH 6.0 (4.7-8.0) Ur Specific [place] >= 1.030 (1.005-1.035) Urine Protein 100 H (<30 mg/dL) mg/dL Urine Glucose (UA) Negative (NEGATIVE) mg/dL Urine Ketones Negative (NEGATIVE) mg/dL Urine Blood Negative (NEGATIVE) Urine Nitrate Negative (NEGATIVE) Urine Bilirubin Negative (NEGATIVE) Urine Urobilinogen 1.0 H (<1 E.U./dL) E.U./dL Ur Leukocyte Esterase Negative (NEGATIVE) [place]/uL Urine RBC Negative (0-2) /hpf Urine WBC 0 - 2 (0-6) /hpf Ur Epithelial Cells 1 - 3 (0-5) /hpf Amorphous Sediment Moderate Urine Bacteria Many (NEG) Urine Other Uyeast Salicylates (2.0-20.0) mg/dL Urine Opiates Screen Negative (NEGATIVE) Urine Methadone Screen Negative (NEGATIVE) Acetaminophen (10.0-20.0) ug/ml Ur Barbiturates Screen Negative (NEGATIVE) Ur Phencyclidine Scrn Negative (NEGATIVE) Ur Amphetamines Screen Negative (NEGATIVE) U Benzodiazepines Scrn Positive H (NEGATIVE) U Oth Cocaine Metabols Negative (NEGATIVE) U Cannabinoids Screen Negative (NEGATIVE) 10/18/16 Range/Units 14:30 WBC (4.5-11.0) 10^3/ul RBC (3.5-6.1) 10^6/uL Hgb (12.0-16.0) gm/dL Hct (36.0-48.0) % MCV (80.0-105.0) fL MCH (25.0-35.0) pg MCHC (31.0-37.0) g/dl RDW (11.5-14.5) % Plt Count (120.0-450.0) 10^3/uL MPV (7.0-11.0) fl Gran % (50.0-68.0) % Lymph % (Auto) (22.0-35.0) % [place] % (Auto) (1.0-6.0) % Eos % (Auto) (1.5-5.0) % Baso % (Auto) (0.0-3.0) % Gran # (1.4-6.5) Lymph # (1.2-3.4) [place] # (0.1-0.6) Eos # (0.0-0.7) Baso # (0.0-2.0) K/mm3 Sodium (132-148) mmol/L Potassium (3.6-5.0) mmol/L Chloride (98-107) mmol/L Carbon Dioxide (21-33) mmol/L Anion Gap (10-20) BUN (7-21) mg/dL Creatinine (0.5-1.4) mg/dL Est GFR ( Amer) Est GFR (Non-Af Amer) Random Glucose (70-110) mg/dL Calcium (8.4-10.5) mg/dL Phosphorus (2.5-4.5) mg/dL Magnesium (1.7-2.2) mg/dL Total Bilirubin (0.2-1.3) mg/dL AST (15-39) U/L ALT (7-56) U/L Alkaline Phosphatase (38-133) U/L Total Creatine Kinase (35-230) U/L Total Protein (5.8-8.3) g/dL Albumin (3.0-4.8) g/dL Globulin gm/dL Albumin/Globulin Ratio (1.1-1.8) Urine Color (YELLOW) Urine Appearance (CLEAR) Urine pH (4.7-8.0) Ur Specific [place] (1.005-1.035) Urine Protein (<30 mg/dL) mg/dL Urine Glucose (UA) (NEGATIVE) mg/dL Urine Ketones (NEGATIVE) mg/dL Urine Blood (NEGATIVE) Urine Nitrate (NEGATIVE) Urine Bilirubin (NEGATIVE) Urine Urobilinogen (<1 E.U./dL) E.U./dL Ur Leukocyte Esterase (NEGATIVE) [place]/uL Urine RBC (0-2) /hpf Urine WBC (0-6) /hpf Ur Epithelial Cells (0-5) /hpf Amorphous Sediment Urine Bacteria (NEG) Urine Other Salicylates < 1 L (2.0-20.0) mg/dL Urine Opiates Screen (NEGATIVE) Urine Methadone Screen (NEGATIVE) Acetaminophen < 10.0 L (10.0-20.0) ug/ml Ur Barbiturates Screen (NEGATIVE) Ur Phencyclidine Scrn (NEGATIVE) Ur Amphetamines Screen (NEGATIVE) U Benzodiazepines Scrn (NEGATIVE) U Oth Cocaine Metabols (NEGATIVE) U Cannabinoids Screen (NEGATIVE) Laboratory Results - last 24 hr 10/18/16 10/18/16 10/18/16 14:30 15:50 15:50 WBC RBC Hgb Hct MCV MCH MCHC RDW Plt Count MPV Gran % Lymph % (Auto) [place] % (Auto) Eos % (Auto) Baso % (Auto) Gran # Lymph # [place] # Eos # Baso # Sodium Potassium Chloride Carbon Dioxide Anion Gap BUN Creatinine Est GFR ( Amer) Est GFR (Non-Af Amer) Random Glucose Calcium Phosphorus Magnesium Total Bilirubin AST ALT Alkaline Phosphatase Total Creatine Kinase Total Protein Albumin Globulin Albumin/Globulin Ratio Urine Color Light yellow Urine Appearance Cloudy Urine pH 6.0 Ur Specific [place] >= 1.030 Urine Protein 100 H Urine Glucose (UA) Negative Urine Ketones Negative Urine Blood Negative Urine Nitrate Negative Urine Bilirubin Negative Urine Urobilinogen 1.0 H Ur Leukocyte Esterase Negative Urine RBC Negative Urine WBC 0 - 2 Ur Epithelial Cells 1 - 3 Amorphous Sediment Moderate Urine Bacteria Many Urine Other Uyeast Salicylates < 1 L Urine Opiates Screen Negative Urine Methadone Screen Negative Acetaminophen < 10.0 L Ur Barbiturates Screen Negative Ur Phencyclidine Scrn Negative Ur Amphetamines Screen Negative U Benzodiazepines Scrn Positive H U Oth Cocaine Metabols Negative U Cannabinoids Screen Negative 10/18/16 10/19/16 10/19/16 20:50 00:20 04:15 WBC RBC Hgb Hct MCV MCH MCHC RDW Plt Count MPV Gran % Lymph % (Auto) [place] % (Auto) Eos % (Auto) Baso % (Auto) Gran # Lymph # [place] # Eos # Baso # Sodium 140 139 140 Potassium 3.9 3.0 L 4.2 Chloride 110 H 119 H 112 H Carbon Dioxide 22 17 L 21 Anion Gap 12 6 L 11 BUN 11 7 8 Creatinine 0.9 0.6 0.8 Est GFR ( Amer) > 60 > 60 > 60 Est GFR (Non-Af Amer) > 60 > 60 > 60 Random Glucose 84 65 L 81 Calcium 8.9 5.9 L* 9.0 Phosphorus 3.3 2.2 L 3.1 Magnesium 2.4 H 1.6 L 2.2 Total Bilirubin 0.5 0.3 0.5 AST 20 21 14 L ALT 24 20 25 Alkaline Phosphatase 76 38 65 Total Creatine Kinase 56 Total Protein 7.2 4.7 L 6.2 Albumin 4.2 2.3 L 3.6 Globulin 3.0 2.4 2.7 Albumin/Globulin Ratio 1.4 1.0 L 1.3 Urine Color Urine Appearance Urine pH Ur Specific [place] Urine Protein Urine Glucose (UA) Urine Ketones Urine Blood Urine Nitrate Urine Bilirubin Urine Urobilinogen Ur Leukocyte Esterase Urine RBC Urine WBC Ur Epithelial Cells Amorphous Sediment Urine Bacteria Urine Other Salicylates Urine Opiates Screen Urine Methadone Screen Acetaminophen Ur Barbiturates Screen Ur Phencyclidine Scrn Ur Amphetamines Screen U Benzodiazepines Scrn U Oth Cocaine Metabols U Cannabinoids Screen 10/19/16 04:15 WBC 8.2 D RBC 3.97 Hgb 11.2 L Hct 35.2 L MCV 88.7 MCH 28.2 MCHC 31.8 RDW 15.7 H Plt Count 243 MPV 9.8 Gran % 57.3 Lymph % (Auto) 29.6 [place] % (Auto) 9.1 H Eos % (Auto) 3.8 Baso % (Auto) 0.2 Gran # 4.70 Lymph # 2.4 [place] # 0.8 H Eos # 0.3 Baso # 0.02 Sodium Potassium Chloride Carbon Dioxide Anion Gap BUN Creatinine Est GFR ( Amer) Est GFR (Non-Af Amer) Random Glucose Calcium Phosphorus Magnesium Total Bilirubin AST ALT Alkaline Phosphatase Total Creatine Kinase Total Protein Albumin Globulin Albumin/Globulin Ratio Urine Color Urine Appearance Urine pH Ur Specific [place] Urine Protein Urine Glucose (UA) Urine Ketones Urine Blood Urine Nitrate Urine Bilirubin Urine Urobilinogen Ur Leukocyte Esterase Urine RBC Urine WBC Ur Epithelial Cells Amorphous Sediment Urine Bacteria Urine Other Salicylates Urine Opiates Screen Urine Methadone Screen Acetaminophen Ur Barbiturates Screen Ur Phencyclidine Scrn Ur Amphetamines Screen U Benzodiazepines Scrn U Oth Cocaine Metabols U Cannabinoids Screen EKG/Cardiology Studies: Cardiology / EKG Studies 10/18/16 18:00 EKG [ELECTROCARDIOGRAM] Q2 Comment: Reason For Exam: delay QT effect of drug overdose 10/18/16 20:00 EKG [ELECTROCARDIOGRAM] Q2 Comment: Reason For Exam: delay QT effect of drug overdose 10/18/16 22:00 EKG [ELECTROCARDIOGRAM] Q2 Comment: Reason For Exam: delay QT effect of drug overdose 10/19/16 00:00 EKG [ELECTROCARDIOGRAM] Q2 Comment: Reason For Exam: delay QT effect of drug overdose 10/19/16 02:00 EKG [ELECTROCARDIOGRAM] Q2 Comment: Reason For Exam: delay QT effect of drug overdose 10/19/16 04:00 EKG [ELECTROCARDIOGRAM] Q2 Comment: Reason For Exam: delay QT effect of drug overdose 10/19/16 06:00 EKG [ELECTROCARDIOGRAM] Q2 Comment: Reason For Exam: delay QT effect of drug overdose 10/19/16 08:00 EKG [ELECTROCARDIOGRAM] Q2 Comment: Reason For Exam: delay QT effect of drug overdose 10/19/16 10:00 EKG [ELECTROCARDIOGRAM] Q2 Comment: Reason For Exam: delay QT effect of drug overdose 10/19/16 12:00 EKG [ELECTROCARDIOGRAM] Q2 Comment: Reason For Exam: delay QT effect of drug overdose Fingerstick Blood Sugar Results: 249 Critical Care Progress Note - Nutrition Nutrition: Nutrition Category Date Time Status NPO Diet [DIET] Diets 10/18/16 Dinner Ordered Assessment/Plan - Assessment and Plan (Free Text) Plan: 40 F overdose on multiple/psych meds (Benzodiazapenes, SSRi,SNRI,Stimulants), developed seizure x 2 (witnessed) and QT prolongation with mentation fluctuation. Neuro Poison control called. Shani, poison control associates EEG conducting now. ativan PRN supportive care seizure & aspiration precaution. keppra loading at 1 g and maintain at 500mg bid Cardio EKG q2 to monitor worsenining QTc QTc improves from 560 to 456 Pulm O2 NC as needed GI tolerate heart health diet NS@150 strict i/o and payne CMP, mg, phos q4; corrected if needed No gap Endo No active issue Heme No active issue Infectious No active issue Psych Psych consult 1:1 if express suicidal Prophylasxis SCD Disposition transfer to remote tele S/r/d/w Dr. Cabrera - Date & Time Date: 10/19/16 Time: 09:18 <Rick NORRIS,[facility] - Last Filed: 10/19/16 15:08> CCU Objective - Vital Signs / Intake & Output Vital Signs (Last 4 hours): Vital Signs Pulse Resp BP 10/19/16 15:00 129/66 10/19/16 14:59 98 H 18 10/19/16 14:58 97 H 18 10/19/16 14:57 98 H 10/19/16 14:56 97 H 25 H 10/19/16 14:55 96 H 10/19/16 14:54 96 H 10/19/16 14:53 97 H 23 10/19/16 14:52 96 H 20 10/19/16 14:51 96 H 21 10/19/16 14:50 98 H 21 10/19/16 14:49 97 H 22 10/19/16 14:48 98 H 22 10/19/16 14:47 99 H 21 10/19/16 14:46 99 H 24 10/19/16 14:45 99 H 10/19/16 14:44 99 H 23 10/19/16 14:43 101 H 27 H 10/19/16 14:42 99 H 23 10/19/16 14:41 97 H 25 H 10/19/16 14:40 100 H 23 10/19/16 14:39 100 H 25 H 10/19/16 14:38 100 H 24 10/19/16 14:37 101 H 22 10/19/16 14:36 103 H 22 10/19/16 14:35 101 H 9 L 10/19/16 14:34 101 H 22 Intake and Output (Last 8hrs): Intake & Output 10/19/16 10/19/16 10/19/16 06:59 14:59 22:59 Output Total 1700 Balance -1700 Output: Urine 1700 2-way Urethral 1700 - Medications Active Medications: Active Medications Generic Name Dose Route Start Last Admin Trade Name Freq PRN Reason Stop Dose Admin Sodium Chloride 1,000 mls @ 150 mls/hr 10/18/16 16:49 10/19/16 12:44 Sodium Chloride 0.9% IV 150 mls/hr .Q6H40M TEJINDER Administration Levetiracetam 500 mg 10/19/16 18:00 Keppra PO BID TEJINDER Lorazepam 1 mg 10/18/16 15:07 Ativan IVP Q3 PRN Anxiety Protocol Pantoprazole Sodium 40 mg 10/18/16 15:00 10/19/16 09:56 Protonix Inj IVP 40 mg DAILY TEJINDER Administration - Patient Studies Lab Studies: Lab Studies 10/19/16 10/19/16 10/19/16 Range/Units 04:15 04:15 00:20 WBC 8.2 D (4.5-11.0) 10^3/ul RBC 3.97 (3.5-6.1) 10^6/uL Hgb 11.2 L (12.0-16.0) gm/dL Hct 35.2 L (36.0-48.0) % MCV 88.7 (80.0-105.0) fL MCH 28.2 (25.0-35.0) pg MCHC 31.8 (31.0-37.0) g/dl RDW 15.7 H (11.5-14.5) % Plt Count 243 (120.0-450.0) 10^3/uL MPV 9.8 (7.0-11.0) fl Gran % 57.3 (50.0-68.0) % Lymph % (Auto) 29.6 (22.0-35.0) % [place] % (Auto) 9.1 H (1.0-6.0) % Eos % (Auto) 3.8 (1.5-5.0) % Baso % (Auto) 0.2 (0.0-3.0) % Gran # 4.70 (1.4-6.5) Lymph # 2.4 (1.2-3.4) [place] # 0.8 H (0.1-0.6) Eos # 0.3 (0.0-0.7) Baso # 0.02 (0.0-2.0) K/mm3 Sodium 140 139 (132-148) mmol/L Potassium 4.2 3.0 L (3.6-5.0) mmol/L Chloride 112 H 119 H (98-107) mmol/L Carbon Dioxide 21 17 L (21-33) mmol/L Anion Gap 11 6 L (10-20) BUN 8 7 (7-21) mg/dL Creatinine 0.8 0.6 (0.5-1.4) mg/dL Est GFR ( Amer) > 60 > 60 Est GFR (Non-Af Amer) > 60 > 60 Random Glucose 81 65 L (70-110) mg/dL Calcium 9.0 5.9 L* (8.4-10.5) mg/dL Phosphorus 3.1 2.2 L (2.5-4.5) mg/dL Magnesium 2.2 1.6 L (1.7-2.2) mg/dL Total Bilirubin 0.5 0.3 (0.2-1.3) mg/dL AST 14 L 21 (15-39) U/L ALT 25 20 (7-56) U/L Alkaline Phosphatase 65 38 (38-133) U/L Total Creatine Kinase (35-230) U/L Total Protein 6.2 4.7 L (5.8-8.3) g/dL Albumin 3.6 2.3 L (3.0-4.8) g/dL Globulin 2.7 2.4 gm/dL Albumin/Globulin Ratio 1.3 1.0 L (1.1-1.8) Urine Color (YELLOW) Urine Appearance (CLEAR) Urine pH (4.7-8.0) Ur Specific [place] (1.005-1.035) Urine Protein (<30 mg/dL) mg/dL Urine Glucose (UA) (NEGATIVE) mg/dL Urine Ketones (NEGATIVE) mg/dL Urine Blood (NEGATIVE) Urine Nitrate (NEGATIVE) Urine Bilirubin (NEGATIVE) Urine Urobilinogen (<1 E.U./dL) E.U./dL Ur Leukocyte Esterase (NEGATIVE) [place]/uL Urine RBC (0-2) /hpf Urine WBC (0-6) /hpf Ur Epithelial Cells (0-5) /hpf Amorphous Sediment Urine Bacteria (NEG) Urine Other Salicylates (2.0-20.0) mg/dL Urine Opiates Screen (NEGATIVE) Urine Methadone Screen (NEGATIVE) Acetaminophen (10.0-20.0) ug/ml Ur Barbiturates Screen (NEGATIVE) Ur Phencyclidine Scrn (NEGATIVE) Ur Amphetamines Screen (NEGATIVE) U Benzodiazepines Scrn (NEGATIVE) U Oth Cocaine Metabols (NEGATIVE) U Cannabinoids Screen (NEGATIVE) 10/18/16 10/18/16 10/18/16 Range/Units 20:50 15:50 15:50 WBC (4.5-11.0) 10^3/ul RBC (3.5-6.1) 10^6/uL Hgb (12.0-16.0) gm/dL Hct (36.0-48.0) % MCV (80.0-105.0) fL MCH (25.0-35.0) pg MCHC (31.0-37.0) g/dl RDW (11.5-14.5) % Plt Count (120.0-450.0) 10^3/uL MPV (7.0-11.0) fl Gran % (50.0-68.0) % Lymph % (Auto) (22.0-35.0) % [place] % (Auto) (1.0-6.0) % Eos % (Auto) (1.5-5.0) % Baso % (Auto) (0.0-3.0) % Gran # (1.4-6.5) Lymph # (1.2-3.4) [place] # (0.1-0.6) Eos # (0.0-0.7) Baso # (0.0-2.0) K/mm3 Sodium 140 (132-148) mmol/L Potassium 3.9 (3.6-5.0) mmol/L Chloride 110 H (98-107) mmol/L Carbon Dioxide 22 (21-33) mmol/L Anion Gap 12 (10-20) BUN 11 (7-21) mg/dL Creatinine 0.9 (0.5-1.4) mg/dL Est GFR ( Amer) > 60 Est GFR (Non-Af Amer) > 60 Random Glucose 84 (70-110) mg/dL Calcium 8.9 (8.4-10.5) mg/dL Phosphorus 3.3 (2.5-4.5) mg/dL Magnesium 2.4 H (1.7-2.2) mg/dL Total Bilirubin 0.5 (0.2-1.3) mg/dL AST 20 (15-39) U/L ALT 24 (7-56) U/L Alkaline Phosphatase 76 (38-133) U/L Total Creatine Kinase 56 (35-230) U/L Total Protein 7.2 (5.8-8.3) g/dL Albumin 4.2 (3.0-4.8) g/dL Globulin 3.0 gm/dL Albumin/Globulin Ratio 1.4 (1.1-1.8) Urine Color Light yellow (YELLOW) Urine Appearance Cloudy (CLEAR) Urine pH 6.0 (4.7-8.0) Ur Specific [place] >= 1.030 (1.005-1.035) Urine Protein 100 H (<30 mg/dL) mg/dL Urine Glucose (UA) Negative (NEGATIVE) mg/dL Urine Ketones Negative (NEGATIVE) mg/dL Urine Blood Negative (NEGATIVE) Urine Nitrate Negative (NEGATIVE) Urine Bilirubin Negative (NEGATIVE) Urine Urobilinogen 1.0 H (<1 E.U./dL) E.U./dL Ur Leukocyte Esterase Negative (NEGATIVE) [place]/uL Urine RBC Negative (0-2) /hpf Urine WBC 0 - 2 (0-6) /hpf Ur Epithelial Cells 1 - 3 (0-5) /hpf Amorphous Sediment Moderate Urine Bacteria Many (NEG) Urine Other Uyeast Salicylates (2.0-20.0) mg/dL Urine Opiates Screen Negative (NEGATIVE) Urine Methadone Screen Negative (NEGATIVE) Acetaminophen (10.0-20.0) ug/ml Ur Barbiturates Screen Negative (NEGATIVE) Ur Phencyclidine Scrn Negative (NEGATIVE) Ur Amphetamines Screen Negative (NEGATIVE) U Benzodiazepines Scrn Positive H (NEGATIVE) U Oth Cocaine Metabols Negative (NEGATIVE) U Cannabinoids Screen Negative (NEGATIVE) 10/18/16 Range/Units 14:30 WBC (4.5-11.0) 10^3/ul RBC (3.5-6.1) 10^6/uL Hgb (12.0-16.0) gm/dL Hct (36.0-48.0) % MCV (80.0-105.0) fL MCH (25.0-35.0) pg MCHC (31.0-37.0) g/dl RDW (11.5-14.5) % Plt Count (120.0-450.0) 10^3/uL MPV (7.0-11.0) fl Gran % (50.0-68.0) % Lymph % (Auto) (22.0-35.0) % [place] % (Auto) (1.0-6.0) % Eos % (Auto) (1.5-5.0) % Baso % (Auto) (0.0-3.0) % Gran # (1.4-6.5) Lymph # (1.2-3.4) [place] # (0.1-0.6) Eos # (0.0-0.7) Baso # (0.0-2.0) K/mm3 Sodium (132-148) mmol/L Potassium (3.6-5.0) mmol/L Chloride (98-107) mmol/L Carbon Dioxide (21-33) mmol/L Anion Gap (10-20) BUN (7-21) mg/dL Creatinine (0.5-1.4) mg/dL Est GFR ( Amer) Est GFR (Non-Af Amer) Random Glucose (70-110) mg/dL Calcium (8.4-10.5) mg/dL Phosphorus (2.5-4.5) mg/dL Magnesium (1.7-2.2) mg/dL Total Bilirubin (0.2-1.3) mg/dL AST (15-39) U/L ALT (7-56) U/L Alkaline Phosphatase (38-133) U/L Total Creatine Kinase (35-230) U/L Total Protein (5.8-8.3) g/dL Albumin (3.0-4.8) g/dL Globulin gm/dL Albumin/Globulin Ratio (1.1-1.8) Urine Color (YELLOW) Urine Appearance (CLEAR) Urine pH (4.7-8.0) Ur Specific [place] (1.005-1.035) Urine Protein (<30 mg/dL) mg/dL Urine Glucose (UA) (NEGATIVE) mg/dL Urine Ketones (NEGATIVE) mg/dL Urine Blood (NEGATIVE) Urine Nitrate (NEGATIVE) Urine Bilirubin (NEGATIVE) Urine Urobilinogen (<1 E.U./dL) E.U./dL Ur Leukocyte Esterase (NEGATIVE) [place]/uL Urine RBC (0-2) /hpf Urine WBC (0-6) /hpf Ur Epithelial Cells (0-5) /hpf Amorphous Sediment Urine Bacteria (NEG) Urine Other Salicylates < 1 L (2.0-20.0) mg/dL Urine Opiates Screen (NEGATIVE) Urine Methadone Screen (NEGATIVE) Acetaminophen < 10.0 L (10.0-20.0) ug/ml Ur Barbiturates Screen (NEGATIVE) Ur Phencyclidine Scrn (NEGATIVE) Ur Amphetamines Screen (NEGATIVE) U Benzodiazepines Scrn (NEGATIVE) U Oth Cocaine Metabols (NEGATIVE) U Cannabinoids Screen (NEGATIVE) Laboratory Results - last 24 hr 10/18/16 10/18/16 10/18/16 14:30 15:50 15:50 WBC RBC Hgb Hct MCV MCH MCHC RDW Plt Count MPV Gran % Lymph % (Auto) [place] % (Auto) Eos % (Auto) Baso % (Auto) Gran # Lymph # [place] # Eos # Baso # Sodium Potassium Chloride Carbon Dioxide Anion Gap BUN Creatinine Est GFR ( Amer) Est GFR (Non-Af Amer) Random Glucose Calcium Phosphorus Magnesium Total Bilirubin AST ALT Alkaline Phosphatase Total Creatine Kinase Total Protein Albumin Globulin Albumin/Globulin Ratio Urine Color Light yellow Urine Appearance Cloudy Urine pH 6.0 Ur Specific [place] >= 1.030 Urine Protein 100 H Urine Glucose (UA) Negative Urine Ketones Negative Urine Blood Negative Urine Nitrate Negative Urine Bilirubin Negative Urine Urobilinogen 1.0 H Ur Leukocyte Esterase Negative Urine RBC Negative Urine WBC 0 - 2 Ur Epithelial Cells 1 - 3 Amorphous Sediment Moderate Urine Bacteria Many Urine Other Uyeast Salicylates < 1 L Urine Opiates Screen Negative Urine Methadone Screen Negative Acetaminophen < 10.0 L Ur Barbiturates Screen Negative Ur Phencyclidine Scrn Negative Ur Amphetamines Screen Negative U Benzodiazepines Scrn Positive H U Oth Cocaine Metabols Negative U Cannabinoids Screen Negative 10/18/16 10/19/16 10/19/16 20:50 00:20 04:15 WBC RBC Hgb Hct MCV MCH MCHC RDW Plt Count MPV Gran % Lymph % (Auto) [place] % (Auto) Eos % (Auto) Baso % (Auto) Gran # Lymph # [place] # Eos # Baso # Sodium 140 139 140 Potassium 3.9 3.0 L 4.2 Chloride 110 H 119 H 112 H Carbon Dioxide 22 17 L 21 Anion Gap 12 6 L 11 BUN 11 7 8 Creatinine 0.9 0.6 0.8 Est GFR ( Amer) > 60 > 60 > 60 Est GFR (Non-Af Amer) > 60 > 60 > 60 Random Glucose 84 65 L 81 Calcium 8.9 5.9 L* 9.0 Phosphorus 3.3 2.2 L 3.1 Magnesium 2.4 H 1.6 L 2.2 Total Bilirubin 0.5 0.3 0.5 AST 20 21 14 L ALT 24 20 25 Alkaline Phosphatase 76 38 65 Total Creatine Kinase 56 Total Protein 7.2 4.7 L 6.2 Albumin 4.2 2.3 L 3.6 Globulin 3.0 2.4 2.7 Albumin/Globulin Ratio 1.4 1.0 L 1.3 Urine Color Urine Appearance Urine pH Ur Specific [place] Urine Protein Urine Glucose (UA) Urine Ketones Urine Blood Urine Nitrate Urine Bilirubin Urine Urobilinogen Ur Leukocyte Esterase Urine RBC Urine WBC Ur Epithelial Cells Amorphous Sediment Urine Bacteria Urine Other Salicylates Urine Opiates Screen Urine Methadone Screen Acetaminophen Ur Barbiturates Screen Ur Phencyclidine Scrn Ur Amphetamines Screen U Benzodiazepines Scrn U Oth Cocaine Metabols U Cannabinoids Screen 10/19/16 04:15 WBC 8.2 D RBC 3.97 Hgb 11.2 L Hct 35.2 L MCV 88.7 MCH 28.2 MCHC 31.8 RDW 15.7 H Plt Count 243 MPV 9.8 Gran % 57.3 Lymph % (Auto) 29.6 [place] % (Auto) 9.1 H Eos % (Auto) 3.8 Baso % (Auto) 0.2 Gran # 4.70 Lymph # 2.4 [place] # 0.8 H Eos # 0.3 Baso # 0.02 Sodium Potassium Chloride Carbon Dioxide Anion Gap BUN Creatinine Est GFR ( Amer) Est GFR (Non-Af Amer) Random Glucose Calcium Phosphorus Magnesium Total Bilirubin AST ALT Alkaline Phosphatase Total Creatine Kinase Total Protein Albumin Globulin Albumin/Globulin Ratio Urine Color Urine Appearance Urine pH Ur Specific [place] Urine Protein Urine Glucose (UA) Urine Ketones Urine Blood Urine Nitrate Urine Bilirubin Urine Urobilinogen Ur Leukocyte Esterase Urine RBC Urine WBC Ur Epithelial Cells Amorphous Sediment Urine Bacteria Urine Other Salicylates Urine Opiates Screen Urine Methadone Screen Acetaminophen Ur Barbiturates Screen Ur Phencyclidine Scrn Ur Amphetamines Screen U Benzodiazepines Scrn U Oth Cocaine Metabols U Cannabinoids Screen EKG/Cardiology Studies: Cardiology / EKG Studies 10/18/16 18:00 EKG [ELECTROCARDIOGRAM] Q2 Comment: Reason For Exam: delay QT effect of drug overdose 10/18/16 20:00 EKG [ELECTROCARDIOGRAM] Q2 Comment: Reason For Exam: delay QT effect of drug overdose 10/18/16 22:00 EKG [ELECTROCARDIOGRAM] Q2 Comment: Reason For Exam: delay QT effect of drug overdose Critical Care Progress Note - Nutrition Nutrition: Nutrition Category Date Time Status Heart Healthy Diet [DIET] Diets 10/19/16 Lunch Ordered Attending/Attestation - Attestation I have personally seen and examined this patient.: Yes I have fully participated in the care of the patient.: Yes I have reviewed all pertinent clinical information: Yes Notes (Text): 10/19/16 15:06 40 y/o F w/ Polysubstance abuse Unclear if Suicide hx, or depression. Overnight QTC improved on EKG. Today mentation improved. aao x 3. No psychotic thoughts. Pending Psych eval. Lab work uneventful . All medications held, w/ prn benzodiazapenes Poison control aware. cc time 45 min
--- NOTE | 2016-10-19 12:02 | CP.PCM.PCO ---
Physician Communication Note - Physician Communication Note Physician Communication Note: will ask to f/u pt over the weekend
--- NOTE | 2016-10-19 12:39 | CON ---
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 The patient also has possible bipolar disorder. The patient was brought in for evaluation of change in mental status and seizure-like activity. Psy consult was called for evaluation of medications. Medical team has concerns about compliance with medications and taking more than she should. The patient was seen and examined today. The patient is very familiar to this engineering writer from the [facility] to the psychiatric inpatient unit. The patient has severe borderline personality traits. The patient said that she was compliant with the medications, the patient is aware of the d oses, and patient said that she is on Effexor 150 mg a day, Seroquel 300 mg at the nighttime and 200 mg in the morning time. The patient reported that she sees outpatient psychiatrist, Dr. Estrada at [facility] outpatient clinic. The patient reported that next appointment is going to be on 11/05. The pat ient adamantly denied that she overdosed or misused the medication but, at the same time, when this w riter asked why her urine drug screen positive for benzodiazepines the patient did not have any answe rs, but reported that she was prescribed that medication before and she took some leftovers. The wilfredo ent said that she lives with a son and son is very supportive. The patient denied being depressed, d enied thoughts of harming herself or others. The patient denied intent or plan. The patient denied hearing voices, denied seeing things, denied paranoid ideations. The patient does not present to be psychotic. The patient denied feeling anxious. PAST PSYCHIATRIC HISTORY: The patient was discharged from the [facility] on 10/04. The patient was withholding that information. The patient was discharged on Seroquel 200 mg in the morning and 300 mg at the nighttime, trazodone 100 mg at the nighttime and Effexor 150 mg daily. The patient obv iously is lying and is not providing incorrect information. The patient brought herself to the [facility] on 10/01 and she was discharged on 10/04. The patient was discharged to [facility] in [place] and [facility] outpatient clinic. VITAL SIGNS: Stable. Blood pressure 124/75, respirations 19, oxygen saturation is 95. MEDICATIONS: Reviewed. The patient is on Keppra, Ativan, Protonix and sodium chloride. LABORATORY DATA: Reviewed. WBC cells 8.2, hemoglobin 11.2, hematocrit 35. Coagulation is reviewed. Chemistry reviewed. Urinalysis reviewed. Toxicology was positive for benzodiazepines. MENTAL STATUS EXAMINATION: The patient appears to be obese. Intermittent eye contact. Flat affect. Mood described, "I'm not depressed." Affect was mood congruent. Thought process: Goal directed. Thought content: The patient denied visual, auditory, or tactile hallucinations; denied paranoid id eation. The patient denied thoughts of harming herself or others, denied intent or plan. Insight an d judgment are fair. Impulses are well controlled. IMPRESSION: As per history, the patient has borderline personality traits. The patient also has bip olar disorder. The patient also has addiction to benzodiazepines, self-reported history of attention deficit hyperactivity disorder. The patient was admitted on the intensive care unit for possible se izure activities. PLAN: Continue current management. The patient started on Keppra, also Ativan, Protonix and sodium chloride. Neurology involved. The patient saw Dr. Cabrera. As per medical team report, patient is us ing 3 different pharmacies. In September, patient was discharged on Seroquel 300 mg at the nighttime, Ser oquel 200 mg daily, Effexor 150 mg daily and trazodone 100 mg daily. On 10/09, patient was on Klonop in, Effexor, Ambien, Adderall 10 mg twice a day, albuterol and Seroquel. From this engineering writer's perspect razia, patient should not be on any stimulants or benzodiazepines. If there is no contraindication, natalya pack should be resumed on Seroquel as well as trazodone as well as Effexor. We will start with the same doses because patient reported being compliant with those medications. This engineering writer will sign of f. Should you have any questions, give me a call back. Dr. Martinez will be seeing patients over the d. Next week, Dr. Gilman is covering. Please reconsult as needed. Case discussed with the [facility]. Thank you very much for letting me participate in the care of your patient. Ariella Kaur MD cc: [phone] TT: 10/19/2016 12:38:18 Confirmation # [id number] Dictation # [id number] mn
[2016-10-19 13:16] LABS: ALB/GLOB RATIO 1.2 (1.1-1.8); ALKALINE PHOSPHATASE 72 U/L (38-133); ALT/SGPT 25 U/L (7-56); AST/SGOT 19 U/L (15-39); BILIRUBIN,TOTAL 0.5 mg/dL (0.2-1.3); BLOOD UREA NITROGEN 6 mg/dL (7-21); CALCIUM 8.5 mg/dL (8.4-10.5); CARBON DIOXIDE 25 mmol/L (21-33); CHLORIDE 109 mmol/L (98-107); GFR AFRICAN-AMERICAN > 60; GLUCOSE,RANDOM 95 mg/dL (70-110); MAGNESIUM 2.1 mg/dL (1.7-2.2); PHOSPHOROUS 2.6 mg/dL (2.5-4.5); POTASSIUM 3.7 mmol/L (3.6-5.0); SODIUM 140 mmol/L (132-148); TOTAL PROTEIN 6.7 g/dL (5.8-8.3)
--- NOTE | 2016-10-19 15:32 | CON ---
DATE: 10/19/2016 This is a 40-year-old female with past medical history of bipolar disorder, depression, suic rambo attempt on drug overdose on 01/08/2016, and came to the hospital with a witnessed seizure by the son and the patient was in bed and speaking with the son when the seizure first occurred and came to hospital, was transferred to ICU for monitoring. PAST MEDICAL HISTORY: Anxiety, bipolar, depression. ALLERGIES: No known drug allergies. REVIEW OF SYSTEMS: A 10-point was negative except tongue bite and lip bite. ALLERGIES: No known drug allergy. PHYSICAL EXAMINATION: VITAL SIGNS: Blood pressure is 135/67. HEENT: Normocephalic, atraumatic. NECK: Supple. NEUROLOGIC: Awake, orientated to self, place. Cranial nerves II-XII were tested. Pupils reactive. EOM intact. Visual shore full. No facial asymmetry. Tongue midline. Tongue bite and lip bite. NEUROLOGIC: Alert, awake, oriented x 3. No aphasia. Cranial nerves II-XII were tested. Pupils ravin ctive. EOM intact. Visual shore full. No facial asymmetry. Tongue midline. MOTOR: Moves all the extremities equally. Tone normal. Deep tendon reflexes 1+. Both plantars bell ngoing. SENSORY: Grossly intact. CEREBELLAR AND GAIT: Deferred. LABORATORIES: WBC 11.1, hemoglobin 12.2, hematocrit 36.5, platelets 233. Sodium 139, potassium 3.4, chloride 108, CO2 22, glucose 130, BUN , creatinine 1. IMPRESSION: New onset seizure. PLAN: We will do the MRI of the head with and without gadolinium, EEG and Keppra 500 mg p.o. twice a day. Kirill Kilpatrick MD cc: [id number] TT: 10/19/2016 14:21:29 Confirmation # [id number] Dictation # [id number]
--- NOTE | 2016-10-19 16:59 | CP.PCM.PN ---
<Derian No - Last Filed: 10/19/16 17:02> Subjective - Date & Time of Evaluation Date of Evaluation: 10/19/16 Time of Evaluation: 11:00 - Subjective Subjective: Pt was seen and examined at bedside. Pt has been agitated and refusing labwork and exams this morning. Pt has no acute complaints at this time. No acute events overnight as per nursing staff. Pt had a apyne in place at the time of examination. Pt denied fever, chills, sob, chest pains, abdominal pains, n/vd/c or urinary symptoms. Pt admitted to headache and slight dizziness. Objective - Vital Signs/Intake and Output Vital Signs (last 24 hours): Temp Pulse Resp BP Pulse Ox 98.6 F 98 H 20 129/66 97 10/19/16 06:00 10/19/16 14:59 10/19/16 14:59 10/19/16 15:00 10/19/16 08:10 Intake and Output: 10/19/16 10/19/16 06:59 18:59 Output Total 1700 Balance -1700 - Medications Medications: Current Medications Sodium Chloride (Sodium Chloride 0.9%) 1,000 mls @ 150 mls/hr IV .Q6H40M [facility] Last Admin: 10/19/16 12:44 Dose: 150 mls/hr Levetiracetam (Keppra) 500 mg PO BID [facility] Lorazepam (Ativan) 1 mg IVP Q3 PRN; Protocol PRN Reason: Anxiety Last Admin: 10/19/16 15:44 Dose: 1 mg Pantoprazole Sodium (Protonix Inj) 40 mg IVP DAILY [facility] Last Admin: 10/19/16 09:56 Dose: 40 mg - Labs Labs: 10/19/16 04:15 10/19/16 12:45 PT 10.4 Seconds (9.9-11.8) 10/18/16 13:00 INR 0.96 (0.93-1.08) 10/18/16 13:00 APTT 24.2 Seconds (23.7-30.8) 10/18/16 13:00 - Constitutional Appears: No Acute Distress - Head Exam Head Exam: ATRAUMATIC, NORMAL INSPECTION, NORMOCEPHALIC - Eye Exam Eye Exam: EOMI, Normal appearance, PERRL Pupil Exam: NORMAL ACCOMODATION, PERRL - ENT Exam ENT Exam: Mucous Membranes Moist, Normal Exam - Neck Exam Neck Exam: Full ROM, Normal Inspection. absent: Lymphadenopathy - Respiratory Exam Respiratory Exam: Clear to Ausculation Bilateral, NORMAL BREATHING PATTERN - Cardiovascular Exam Cardiovascular Exam: REGULAR RHYTHM, +S1, +S2. absent: Murmur - GI/Abdominal Exam GI & Abdominal Exam: Soft, Normal Bowel Sounds. absent: Tenderness - Extremities Exam Extremities Exam: Full ROM, Normal Capillary Refill, Normal Inspection. absent : Joint Swelling, Pedal Edema - Back Exam Back Exam: NORMAL INSPECTION - Neurological Exam Neurological Exam: Alert, Awake, CN II-XII Intact, Normal Gait, Oriented x3 - Psychiatric Exam Psychiatric exam: Agitated - Skin Skin Exam: Dry, Intact, Normal Color, Warm Assessment and Plan - Assessment and Plan (Free Text) Assessment: 40 F with PMHx significant for anxiety, depression and bipolar dsr presenting with AMS following witnessed seizures x2. AMS - Seizure x2 - likely secondary to polypharmacy - no further seizures - Ativan prn - Keppra loading - Neuro consulted, Dr. Osuna recommended Keppra 500mg Po BID, EEG and MRI of brain - aspiration ppx, fall ppx, seizure ppx Tachycardia - likely secondary to above - resolved - ivf - Overnight QTC improved on EKG. - continue to monitor Anxiety/depression - psych consulted, Dr. Krishnan - hold off on psych meds for now GI DVT ppx reviewed Seen reviewed and discussed with Attending <Debora NORRIS,Yimi - Last Filed: 10/19/16 17:16> Objective - Vital Signs/Intake and Output Vital Signs (last 24 hours): Temp Pulse Resp BP Pulse Ox 98.6 F 98 H 20 129/66 97 10/19/16 06:00 10/19/16 14:59 10/19/16 14:59 10/19/16 15:00 10/19/16 08:10 Intake and Output: 10/19/16 10/19/16 06:59 18:59 Output Total 1700 Balance -1700 - Medications Medications: Current Medications Sodium Chloride (Sodium Chloride 0.9%) 1,000 mls @ 150 mls/hr IV .Q6H40M [facility] Last Admin: 10/19/16 12:44 Dose: 150 mls/hr Levetiracetam (Keppra) 500 mg PO BID [facility] Last Admin: 10/19/16 17:03 Dose: 500 mg Lorazepam (Ativan) 1 mg IVP Q3 PRN; Protocol PRN Reason: Anxiety Last Admin: 10/19/16 15:44 Dose: 1 mg Pantoprazole Sodium (Protonix Inj) 40 mg IVP DAILY [facility] Last Admin: 10/19/16 09:56 Dose: 40 mg - Labs Labs: 10/19/16 04:15 10/19/16 12:45 PT 10.4 Seconds (9.9-11.8) 10/18/16 13:00 INR 0.96 (0.93-1.08) 10/18/16 13:00 APTT 24.2 Seconds (23.7-30.8) 10/18/16 13:00 Attending/Attestation - Attestation I have personally seen and examined this patient.: Yes I have fully participated in the care of the patient.: Yes I have reviewed all pertinent clinical information, including history, physical exam and plan: Yes Notes (Text): 10/19/16 17:15 Patient was seen and examined with medical claims analyst. 40 F with PMHx significant for anxiety, depression and bipolar dsr presenting with AMS following witnessed seizures x2. Patient is back to base line.She is on Keppra, awaiting MRI of Brain and EEG.Neurology evaluation is appreciated. Management plan was discussed in detail with patient.Education was provided
[2016-10-19 22:52] LABS: ALB/GLOB RATIO 1.3 (1.1-1.8); ALKALINE PHOSPHATASE 72 U/L (38-133); ALT/SGPT 28 U/L (7-56); AST/SGOT 18 U/L (15-39); BILIRUBIN,TOTAL 0.3 mg/dL (0.2-1.3); BLOOD UREA NITROGEN 14 mg/dL (7-21); CALCIUM 8.8 mg/dL (8.4-10.5); CARBON DIOXIDE 22 mmol/L (21-33); CHLORIDE 108 mmol/L (95-110); GFR AFRICAN-AMERICAN > 60; GLUCOSE,RANDOM 110 mg/dL (70-110); MAGNESIUM 2.1 mg/dL (1.7-2.2); PHOSPHOROUS 3.8 mg/dL (2.5-4.5); POTASSIUM 4.1 mmol/L (3.6-5.0); SODIUM 139 mmol/L (132-148); TOTAL PROTEIN 6.7 g/dL (5.8-8.3)
[2016-10-20 07:21] LABS: ADD MANUAL DIFF? NO
[2016-10-20 07:24] LABS: BASO # 0.03 K/mm3 (0.0-2.0); BASO % 0.5 % (0.0-3.0); EOS # 0.4 (0.0-0.7); GRAN # 3.32 (1.4-6.5); GRAN % 53.4 % (50.0-68.0); LYMPH % 31.4 % (22.0-35.0); MEAN CELL VOLUME 88.5 fL (80.0-105.0); MEAN CORPUSCULAR HGB CONC 32.8 g/dl (31.0-37.0); MEAN PLATELET VOLUME 9.8 fl (7.0-11.0); MONO # 0.5 (0.1-0.6); MONO % 8.7 % (1.0-6.0); PLATELET COUNT 263 10^3/uL (120.0-450.0); RED CELL DISTRIBUTION WIDTH 15.4 % (11.5-14.5); WHITE BLOOD COUNT 6.2 10^3/ul (4.5-11.0)
[2016-10-20 07:37] LABS: ALB/GLOB RATIO 1.3 (1.1-1.8); ALKALINE PHOSPHATASE 75 U/L (38-133); ALT/SGPT 26 U/L (7-56); AST/SGOT 14 U/L (15-39); BILIRUBIN,TOTAL 0.2 mg/dL (0.2-1.3); BLOOD UREA NITROGEN 13 mg/dL (7-21); CALCIUM 8.9 mg/dL (8.4-10.5); CARBON DIOXIDE 24 mmol/L (21-33); CHLORIDE 107 mmol/L (98-107); GFR AFRICAN-AMERICAN > 60; GLUCOSE,RANDOM 111 mg/dL (70-110); MAGNESIUM 2.2 mg/dL (1.7-2.2); PHOSPHOROUS 3.5 mg/dL (2.5-4.5); POTASSIUM 3.8 mmol/L (3.6-5.0); SODIUM 139 mmol/L (132-148); TOTAL PROTEIN 6.4 g/dL (5.8-8.3)
[2016-10-20 09:35] VITALS: TEMP 98.3
--- NOTE | 2016-10-20 13:15 | PN ---
DATE: 10/20/2016 CHIEF COMPLAINT: Follow up for seizures. SUBJECTIVE: The patient is sitting out of bed, states she is agitated, refusing any blood work. She refused the EEG. She is currently getting Keppra 500 mg p.o. b.i.d., has refused all further manage ment. At this time, I feel that these are provoked seizures from substance abuse and since patient i s refusing, we will discontinue the monitor and get more of a psychiatric followup and management. PAST MEDICAL HISTORY: History of anxiety, bipolar disorder, depression, suicide attempt with drug ov erdose on 01/08/2016. REVIEW OF SYSTEMS: A 14-point review of systems is negative except for the HPI. FAMILY HISTORY: Noncontributory. SOCIAL HISTORY: No illicit drug use, smoking, or ETOH use. ALLERGIES: No known drug allergies. MEDICATIONS: Reviewed via nurse's reconciliation sheet. PHYSICAL EXAMINATION: VITAL SIGNS: Temperature 98.3, pulse rate of 72, blood pressure 163/73, respiratory rate 18, oxygen saturation 97% via room air. GENERAL: The patient is seen lying in bed, is visually impaired at baseline, is refusing even to fol low up with her further examination. Even though translating in Hungarian, she refused to communicate. HEENT: Atraumatic, normocephalic. PERRLA. Extraocular muscles intact. NECK: Supple, no JVD, no adenopathy noted. LUNGS: Clear to auscultation. No adventitious sounds. HEART: S1, S2, normal rate and rhythm. No murmurs, rubs, or gallops. ABDOMEN: Soft, nontender, nondistended. Bowel sounds are present. EXTREMITIES: No clubbing, no cyanosis. Peripheral pulses 2+ felt bilaterally. NEUROLOGIC: The patient is very agitated though moves all extremities equally. Speech is hypophonic . No aphasia noted. Cranial nerves II-XII are intact. MOTOR: Moves all extremities spontaneously and equally. No pronator drift seen. SENSORY: Withdraws to localized noxious stimulus. COORDINATION AND GAIT: Deferred for now. DEEP TENDON REFLEXES: 1+ throughout. LABORATORY DATA: Sodium is 139, potassium 3.9, chloride 107, carbon dioxide 24, BUN of 13, creatinin e 0.9, random glucose 111. ASSESSMENT AND PLAN: This is a 40-year-old woman with history of anxiety, depression, bipolar disord er, had presented with altered mental status following witnessed seizures, generalized tonic-clonic t ype x 2 which were likely secondary to polypharmacy. No further seizures since she was loaded with K eppra. She is on Keppra 500 mg p.o. b.i.d. She refused the EEG. CAT scan showed no acute intracran ial abnormality. At this time, these seizures are more like provoked seizures from polypharmacy; the refore, upon discharge, she can be taken off the Keppra if needed because Keppra can make her further agitated. At this time, no further neurological workup needed at this time. We will sign off. Jaydon Kilpatrick MD cc: [id number] TT: 10/20/2016 13:14:59 Confirmation # [id number] Dictation # [id number] tn
--- NOTE | 2016-10-20 18:19 | CP.PCM.PN ---
<Derian No - Last Filed: 10/20/16 18:21> Subjective - Date & Time of Evaluation Date of Evaluation: 10/20/16 Time of Evaluation: 11:15 - Subjective Subjective: Pt was seen and examined at bedside. No acute complaints at this time. No acute or adverse events overnight as per nursing staff. Pt is a bit more compliant with plan of care. Pt is moving bowels and bladder regularly and tolerating po intake. Pt denied fever, chills, sob, chest pains, abdominal pains, n/v/d/c or urinary symptoms. Objective - Vital Signs/Intake and Output Vital Signs (last 24 hours): Temp Pulse Resp BP Pulse Ox 98.3 F 88 18 163/73 H 96 10/20/16 06:00 10/20/16 14:00 10/20/16 06:00 10/20/16 06:00 10/20/16 06:00 Intake and Output: 10/20/16 10/20/16 06:59 18:59 Intake Total 540 Balance 540 - Medications Medications: Current Medications Sodium Chloride (Sodium Chloride 0.9%) 1,000 mls @ 150 mls/hr IV .Q6H40M [facility] Last Admin: 10/19/16 12:44 Dose: 150 mls/hr Levetiracetam (Keppra) 500 mg PO BID [facility] Last Admin: 10/20/16 17:11 Dose: 500 mg Lorazepam (Ativan) 1 mg IVP Q3 PRN; Protocol PRN Reason: Anxiety Last Admin: 10/19/16 15:44 Dose: 1 mg Pantoprazole Sodium (Protonix Inj) 40 mg IVP DAILY [facility] Last Admin: 10/20/16 09:13 Dose: 40 mg - Labs Labs: 10/20/16 07:00 10/20/16 07:00 PT 10.4 Seconds (9.9-11.8) 10/18/16 13:00 INR 0.96 (0.93-1.08) 10/18/16 13:00 APTT 24.2 Seconds (23.7-30.8) 10/18/16 13:00 - Constitutional Appears: No Acute Distress - Head Exam Head Exam: ATRAUMATIC, NORMAL INSPECTION, NORMOCEPHALIC - Eye Exam Eye Exam: EOMI, Normal appearance, PERRL Pupil Exam: NORMAL ACCOMODATION, PERRL - ENT Exam ENT Exam: Mucous Membranes Moist, Normal Exam - Neck Exam Neck Exam: Full ROM, Normal Inspection. absent: Lymphadenopathy - Respiratory Exam Respiratory Exam: Clear to Ausculation Bilateral, NORMAL BREATHING PATTERN - Cardiovascular Exam Cardiovascular Exam: REGULAR RHYTHM, +S1, +S2. absent: Murmur - GI/Abdominal Exam GI & Abdominal Exam: Soft, Normal Bowel Sounds. absent: Tenderness - Extremities Exam Extremities Exam: Full ROM, Normal Capillary Refill, Normal Inspection. absent : Joint Swelling, Pedal Edema - Back Exam Back Exam: NORMAL INSPECTION - Neurological Exam Neurological Exam: Alert, Awake, CN II-XII Intact, Normal Gait, Oriented x3 - Psychiatric Exam Psychiatric exam: Normal Affect, Normal Mood - Skin Skin Exam: Dry, Intact, Normal Color, Warm Assessment and Plan - Assessment and Plan (Free Text) Assessment: 40 F with PMHx significant for anxiety, depression and bipolar dsr presenting with AMS following witnessed seizures x2. AMS - resolved - Seizure x2 - likely secondary to polypharmacy - no further seizures - Ativan prn - Keppra loading - Neuro consulted, Dr. Osuna EEG and MRI of brain. FU MRI, will dc keppra upon dc as per Neuro - aspiration ppx, fall ppx, seizure ppx Tachycardia - likely secondary to above - resolved - ivf - Overnight QTC improved on EKG. - continue to monitor Anxiety/depression - psych consulted, Dr. Krishnan - hold off on psych meds for now GI DVT ppx reviewed Seen reviewed and discussed with Dr. Alex Pending MRI <Maru Alex - Last Filed: 10/21/16 10:53> Objective - Vital Signs/Intake and Output Vital Signs (last 24 hours): Temp Pulse Resp BP Pulse Ox 98.3 F 93 H 17 108/75 98 10/21/16 06:00 10/21/16 06:00 10/21/16 06:00 10/21/16 06:00 10/21/16 06:00 Intake and Output: 10/21/16 10/21/16 06:59 18:59 Intake Total 540 Balance 540 - Medications Medications: Current Medications Levetiracetam (Keppra) 500 mg PO BID [facility] Last Admin: 10/21/16 09:52 Dose: 500 mg Lorazepam (Ativan) 1 mg IVP Q3 PRN; Protocol PRN Reason: Anxiety Last Admin: 10/20/16 22:01 Dose: 1 mg Pantoprazole Sodium (Protonix Inj) 40 mg IVP DAILY [facility] Last Admin: 10/21/16 09:52 Dose: 40 mg - Labs Labs: 10/21/16 07:00 10/20/16 07:00 PT 10.4 Seconds (9.9-11.8) 10/18/16 13:00 INR 0.96 (0.93-1.08) 10/18/16 13:00 APTT 24.2 Seconds (23.7-30.8) 10/18/16 13:00 Attending/Attestation - Attestation I have personally seen and examined this patient.: Yes I have fully participated in the care of the patient.: Yes I have reviewed all pertinent clinical information, including history, physical exam and plan: Yes Notes (Text): 10/21/16 10:50 Attending note; Patient was seen and examined with medical certification specialist. Patient is a 40 year old Femal with PMHx significant for anxiety, depression and bipolar disorder is presenting with AMS following witnessed seizures x2 mostly secondary to multiple psych medications. Patient is back to base line.She is on Keppra, awaiting MRI of Brain and EEG.Neurology evaluation is appreciated. Psychiatry evaluation appreciated. upon discharge the patient will follow up with PMD DR. roberto and psychiatry at [place]. 10/21/16 10:52 10/21/16 10:53
[2016-10-21 07:21] LABS: ADD MANUAL DIFF? NO
[2016-10-21 07:28] LABS: BASO # 0.04 K/mm3 (0.0-2.0); BASO % 0.6 % (0.0-3.0); EOS # 0.4 (0.0-0.7); EOS % 6.2 % (1.5-5.0); GRAN # 3.14 (1.4-6.5); GRAN % 47.5 % (50.0-68.0); HEMATOCRIT 37.9 % (36.0-48.0); LYMPH # 2.3 (1.2-3.4); LYMPH % 35.5 % (22.0-35.0); MEAN CORPUSCULAR HEMOGLOBIN 29.6 pg (25.0-35.0); MEAN CORPUSCULAR HGB CONC 33.2 g/dl (31.0-37.0); MONO # 0.7 (0.1-0.6); MONO % 10.2 % (1.0-6.0); PLATELET COUNT 269 10^3/uL (120.0-450.0); RED CELL DISTRIBUTION WIDTH 15.2 % (11.5-14.5); WHITE BLOOD COUNT 6.6 10^3/ul (4.5-11.0)
[2016-10-21 08:56] VITALS: BP 108/75; PULSE 93; RESP 17; O2SAT 98
--- NOTE | 2016-10-21 11:49 | MRI ---
PROCEDURE: MRI BRAIN WITHOUT CONTRAST HISTORY: seizure COMPARISON: CT of the head 10/18/2016 TECHNIQUE: Multiplanar, multisequence MR images of the brain were obtained without intravenous contrast enhancement. FINDINGS: HEMORRHAGE: None DWI: No evidence of an acute or early subacute infarction. BRAIN PARENCHYMA: No mass effect or edema. Multiple white matter lesions are seen in the periventricular white matter. These have an oval-shaped and are oriented perpendicular to the ventricular surface. 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 These lesions have a hypo intense appearance on T1 weighted imaging consistent with chronic disease VENTRICLES: Unremarkable. No hydrocephalus. CRANIUM: Unremarkable. ORBITS: Grossly unremarkable. PARANASAL SINUSES/MASTOIDS: Clear VASCULAR SYSTEM: Skull base flow voids intact. OTHER FINDINGS: None. IMPRESSION: Multiple white matter lesions are seen in the periventricular white matter. These have an oval-shaped and are oriented perpendicular to the ventricular surface. 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
--- NOTE | 2016-10-21 11:52 | MRI ---
PROCEDURE: Magnetic Resonance Angiography Brain HISTORY: Seizure COMPARISON: None available. TECHNIQUE: 3D time of flight MR angiography of the intracranial arteries was performed. Rotating maximum intensity projection images were generated. FINDINGS: INTERNAL CEREBRAL ARTERIES: Unremarkable. The skull base, petrous, cavernous and supraclinoid segments are bilaterally widely patient. ANTERIOR CEREBRAL ARTERIES: Unremarkable. A1 and A2 segments are widely patent. Smaller distal branches unremarkable, as visualized. MIDDLE CEREBRAL ARTERIES: Unremarkable. M1 and M2 segments are widely patent. Perisylvian branches grossly symmetric. POSTERIOR CIRCULATION: Basilar Artery: Unremarkable. Distal Vertebral Arteries: Unremarkable. Posterior Cerebral Arteries: Unremarkable. Posterior Inferior Cerebellar Arteries: Unremarkable. ANEURYSM/ VASCULAR MALFORMATIONS: None. OTHER FINDINGS: None. IMPRESSION: Unremarkable MR angiography of the brain.
--- NOTE | 2016-10-21 13:33 | CP.PCM.DIS ---
<Derian No - Last Filed: 10/22/16 13:17> Provider - Provider Date of Admission: 10/18/16 14:20 Attending physician: Maru Alex MD Primary care physician: Marielos Ugarte MD Consults: Neurology - Dr. Osuna Psych - Dr Krishnan Time Spent in preparation of Discharge (in minutes): 45 Hospital Course - Lab Results Lab Results: Micro Results 10/18/16 18:00 Naris MRSA Culture (Admit) - Final MRSA NOT DETECTED Most Recent Lab Values WBC 6.6 10^3/ul (4.5-11.0) 10/21/16 07:00 RBC 4.26 10^6/uL (3.5-6.1) 10/21/16 07:00 Hgb 12.6 gm/dL (12.0-16.0) 10/21/16 07:00 Hct 37.9 % (36.0-48.0) 10/21/16 07:00 MCV 89.0 fL (80.0-105.0) 10/21/16 07:00 MCH 29.6 pg (25.0-35.0) 10/21/16 07:00 MCHC 33.2 g/dl (31.0-37.0) 10/21/16 07:00 RDW 15.2 % (11.5-14.5) H 10/21/16 07:00 Plt Count 269 10^3/uL (120.0-450.0) 10/21/16 07:00 MPV 10.0 fl (7.0-11.0) 10/21/16 07:00 Gran % 47.5 % (50.0-68.0) L 10/21/16 07:00 Lymph % (Auto) 35.5 % (22.0-35.0) H 10/21/16 07:00 [facility] % (Auto) 10.2 % (1.0-6.0) H 10/21/16 07:00 Eos % (Auto) 6.2 % (1.5-5.0) H 10/21/16 07:00 Baso % (Auto) 0.6 % (0.0-3.0) 10/21/16 07:00 Gran # 3.14 (1.4-6.5) 10/21/16 07:00 Lymph # 2.3 (1.2-3.4) 10/21/16 07:00 [facility] # 0.7 (0.1-0.6) H 10/21/16 07:00 Eos # 0.4 (0.0-0.7) 10/21/16 07:00 Baso # 0.04 K/mm3 (0.0-2.0) 10/21/16 07:00 PT 10.4 Seconds (9.9-11.8) 10/18/16 13:00 INR 0.96 (0.93-1.08) 10/18/16 13:00 APTT 24.2 Seconds (23.7-30.8) 10/18/16 13:00 Sodium 139 mmol/L (132-148) 10/20/16 07:00 Potassium 3.8 mmol/L (3.6-5.0) 10/20/16 07:00 Chloride 107 mmol/L (98-107) 10/20/16 07:00 Carbon Dioxide 24 mmol/L (21-33) 10/20/16 07:00 Anion Gap 12 (10-20) 10/20/16 07:00 BUN 13 mg/dL (7-21) 10/20/16 07:00 Creatinine 0.9 mg/dL (0.5-1.4) 10/20/16 07:00 Est GFR ( Amer) > 60 10/20/16 07:00 Est GFR (Non-Af Amer) > 60 10/20/16 07:00 POC Glucose (mg/dL) 246 mg/dL (65-110) H 10/18/16 11:56 Random Glucose 111 mg/dL (70-110) H 10/20/16 07:00 Calcium 8.9 mg/dL (8.4-10.5) 10/20/16 07:00 Phosphorus 3.5 mg/dL (2.5-4.5) 10/20/16 07:00 Magnesium 2.2 mg/dL (1.7-2.2) 10/20/16 07:00 Total Bilirubin 0.2 mg/dL (0.2-1.3) 10/20/16 07:00 AST 14 U/L (15-39) L 10/20/16 07:00 ALT 26 U/L (7-56) 10/20/16 07:00 Alkaline Phosphatase 75 U/L (38-133) 10/20/16 07:00 Total Creatine Kinase 56 U/L (35-230) 10/18/16 20:50 Total Protein 6.4 g/dL (5.8-8.3) 10/20/16 07:00 Albumin 3.6 g/dL (3.0-4.8) 10/20/16 07:00 Globulin 2.8 gm/dL 10/20/16 07:00 Albumin/Globulin Ratio 1.3 (1.1-1.8) 10/20/16 07:00 Urine Color Light yellow (YELLOW) 10/18/16 15:50 Urine Appearance Cloudy (CLEAR) 10/18/16 15:50 Urine pH 6.0 (4.7-8.0) 10/18/16 15:50 Ur Specific [place] >= 1.030 (1.005-1.035) 10/18/16 15:50 Urine Protein 100 mg/dL (<30 mg/dL) H 10/18/16 15:50 Urine Glucose (UA) Negative mg/dL (NEGATIVE) 10/18/16 15:50 Urine Ketones Negative mg/dL (NEGATIVE) 10/18/16 15:50 Urine Blood Negative (NEGATIVE) 10/18/16 15:50 Urine Nitrate Negative (NEGATIVE) 10/18/16 15:50 Urine Bilirubin Negative (NEGATIVE) 10/18/16 15:50 Urine Urobilinogen 1.0 E.U./dL (<1 E.U./dL) H 10/18/16 15:50 Ur Leukocyte Esterase Negative Tunde/uL (NEGATIVE) 10/18/16 15:50 Urine RBC Negative /hpf (0-2) 10/18/16 15:50 Urine WBC 0 - 2 /hpf (0-6) 10/18/16 15:50 Ur Epithelial Cells 1 - 3 /hpf (0-5) 10/18/16 15:50 Amorphous Sediment Moderate 10/18/16 15:50 Urine Bacteria Many (NEG) 10/18/16 15:50 Urine Other Uyeast 10/18/16 15:50 Salicylates < 1 mg/dL (2.0-20.0) L 10/18/16 14:30 Urine Opiates Screen Negative (NEGATIVE) 10/18/16 15:50 Urine Methadone Screen Negative (NEGATIVE) 10/18/16 15:50 Acetaminophen < 10.0 ug/ml (10.0-20.0) L 10/18/16 14:30 Ur Barbiturates Screen Negative (NEGATIVE) 10/18/16 15:50 Ur Phencyclidine Scrn Negative (NEGATIVE) 10/18/16 15:50 Ur Amphetamines Screen Negative (NEGATIVE) 10/18/16 15:50 U Benzodiazepines Scrn Positive (NEGATIVE) H 10/18/16 15:50 U Oth Cocaine Metabols Negative (NEGATIVE) 10/18/16 15:50 U Cannabinoids Screen Negative (NEGATIVE) 10/18/16 15:50 Alcohol, Quantitative < 10 mg/dL (0-10) 10/18/16 13:00 - Hospital Course Hospital Course: 40 yo F with extensive psychiatric history and multiple psychiatric hospitalizations with previous suicidal attempt by drug overdose presented to ED by EMS following a witnessed seizure by son. Pt was in bed and speaking with her son when the first seizure occurred. Pt's son turned the pt on her side and cleared her airway until EMS arrived. Pt was in ED and with her son when a second seizure occurred, again witnessed by son. Pt was administered ativan at the time. Pt son was at bedside and noted that pt has been known to take more than prescribed doses of her medications as well as medications obtained off the streets. Pt was admitted for AMS following two seizures. Pt had a CTH that did not demonstrate any acute intracranial pathology. Pt EKG did not demonstrate any acute ST changes, however was concerning for QTc prolongation. Serial EKGs did no show further QTC prolongation and in fact started to normalize. EEG demonstrated normal sleep-wake cycles. Pt was placed on neurochecks q 1 hrs , Keppra loaded and Neurology and Psych were consulted. Hold all medications, PRN Ativan if withdrawl or seizures present. Pt was admitted to ICU tele monitoring, was protecting airway and subsequently AAOx3 the following morning after admission. Pt was mentating well and pt was transferred to remote tele. Psych, Dr. Krishnan recommended to restart home psych medications and subsequently signed off as there are no contrainditations at this time and acute psych interventions at this time. Pt denied SI/HI. Neurology , Dr. Osuna recommended dc the keppra and continue with home meds. Pt had MRI/ MRA of brain which demonstrated possible demyelinating disease process. Pt was stable at time of discharge. Mentating well, ambulating, moving bowel and bladder regularly and tolerating diet. Pt did not have any residual deficits. Pt expressed interest in going home. Pt upon DC is to fu with PMD Dr. Ugarte and psych at [facility] and Neurology Dr. Jaydon Osuna. Discharge Exam - Head Exam Head Exam: ATRAUMATIC, NORMAL INSPECTION, NORMOCEPHALIC - Eye Exam Eye Exam: EOMI, Normal appearance, PERRL Pupil Exam: NORMAL ACCOMODATION, PERRL - ENT Exam ENT Exam: Mucous Membranes Moist - Neck Exam Neck exam: Full Rom - Respiratory Exam Respiratory Exam: Clear to PA & Lateral, NORMAL BREATHING PATTERN, UNREMARKABLE - Cardiovascular Exam Cardiovascular Exam: RRR, +S1, +S2 - GI/Abdominal Exam GI & Abdominal Exam: Normal Bowel Sounds, Soft. absent: Tenderness - Extremities Exam Extremities exam: normal inspection - Back Exam Back exam: NORMAL INSPECTION - Neurological Exam Neurological exam: Alert, CN II-XII Intact, Normal Gait, Oriented x3, Reflexes Normal - Psychiatric Exam Psychiatric exam: Normal Affect, Normal Mood - Skin Skin Exam: Dry, Intact, Normal Color, Warm Discharge Plan - Follow Up Plan Condition: FAIR Disposition: HOME/ ROUTINE Instructions: Nonepileptic Seizures (GEN) Additional Instructions: 1. Follow up with PMD DR. Ugarte. 2. Follow up with Psych at [facility]. 3. Seizure precautions. 4. Follow up with DR. Adam beltrán Neurology in 1 week. Referrals: Marielos Ugarte MD [Primary Care Provider] - Follow up with primary Jaydon Beltrán MD [Staff Provider] - <Maru Alex - Last Filed: 10/22/16 15:09> Provider - Provider Date of Admission: 10/18/16 14:20 Attending physician: Maru Alex MD Primary care physician: Marielos Ugarte MD Hospital Course - Lab Results Lab Results: Micro Results 10/18/16 18:00 Naris MRSA Culture (Admit) - Final MRSA NOT DETECTED Most Recent Lab Values WBC 6.6 10^3/ul (4.5-11.0) 10/21/16 07:00 RBC 4.26 10^6/uL (3.5-6.1) 10/21/16 07:00 Hgb 12.6 gm/dL (12.0-16.0) 10/21/16 07:00 Hct 37.9 % (36.0-48.0) 10/21/16 07:00 MCV 89.0 fL (80.0-105.0) 10/21/16 07:00 MCH 29.6 pg (25.0-35.0) 10/21/16 07:00 MCHC 33.2 g/dl (31.0-37.0) 10/21/16 07:00 RDW 15.2 % (11.5-14.5) H 10/21/16 07:00 Plt Count 269 10^3/uL (120.0-450.0) 10/21/16 07:00 MPV 10.0 fl (7.0-11.0) 10/21/16 07:00 Gran % 47.5 % (50.0-68.0) L 10/21/16 07:00 Lymph % (Auto) 35.5 % (22.0-35.0) H 10/21/16 07:00 [facility] % (Auto) 10.2 % (1.0-6.0) H 10/21/16 07:00 Eos % (Auto) 6.2 % (1.5-5.0) H 10/21/16 07:00 Baso % (Auto) 0.6 % (0.0-3.0) 10/21/16 07:00 Gran # 3.14 (1.4-6.5) 10/21/16 07:00 Lymph # 2.3 (1.2-3.4) 10/21/16 07:00 [facility] # 0.7 (0.1-0.6) H 10/21/16 07:00 Eos # 0.4 (0.0-0.7) 10/21/16 07:00 Baso # 0.04 K/mm3 (0.0-2.0) 10/21/16 07:00 PT 10.4 Seconds (9.9-11.8) 10/18/16 13:00 INR 0.96 (0.93-1.08) 10/18/16 13:00 APTT 24.2 Seconds (23.7-30.8) 10/18/16 13:00 Sodium 139 mmol/L (132-148) 10/20/16 07:00 Potassium 3.8 mmol/L (3.6-5.0) 10/20/16 07:00 Chloride 107 mmol/L (98-107) 10/20/16 07:00 Carbon Dioxide 24 mmol/L (21-33) 10/20/16 07:00 Anion Gap 12 (10-20) 10/20/16 07:00 BUN 13 mg/dL (7-21) 10/20/16 07:00 Creatinine 0.9 mg/dL (0.5-1.4) 10/20/16 07:00 Est GFR ( Amer) > 60 10/20/16 07:00 Est GFR (Non-Af Amer) > 60 10/20/16 07:00 POC Glucose (mg/dL) 246 mg/dL (65-110) H 10/18/16 11:56 Random Glucose 111 mg/dL (70-110) H 10/20/16 07:00 Calcium 8.9 mg/dL (8.4-10.5) 10/20/16 07:00 Phosphorus 3.5 mg/dL (2.5-4.5) 10/20/16 07:00 Magnesium 2.2 mg/dL (1.7-2.2) 10/20/16 07:00 Total Bilirubin 0.2 mg/dL (0.2-1.3) 10/20/16 07:00 AST 14 U/L (15-39) L 10/20/16 07:00 ALT 26 U/L (7-56) 10/20/16 07:00 Alkaline Phosphatase 75 U/L (38-133) 10/20/16 07:00 Total Creatine Kinase 56 U/L (35-230) 10/18/16 20:50 Total Protein 6.4 g/dL (5.8-8.3) 10/20/16 07:00 Albumin 3.6 g/dL (3.0-4.8) 10/20/16 07:00 Globulin 2.8 gm/dL 10/20/16 07:00 Albumin/Globulin Ratio 1.3 (1.1-1.8) 10/20/16 07:00 Urine Color Light yellow (YELLOW) 10/18/16 15:50 Urine Appearance Cloudy (CLEAR) 10/18/16 15:50 Urine pH 6.0 (4.7-8.0) 10/18/16 15:50 Ur Specific [place] >= 1.030 (1.005-1.035) 10/18/16 15:50 Urine Protein 100 mg/dL (<30 mg/dL) H 10/18/16 15:50 Urine Glucose (UA) Negative mg/dL (NEGATIVE) 10/18/16 15:50 Urine Ketones Negative mg/dL (NEGATIVE) 10/18/16 15:50 Urine Blood Negative (NEGATIVE) 10/18/16 15:50 Urine Nitrate Negative (NEGATIVE) 10/18/16 15:50 Urine Bilirubin Negative (NEGATIVE) 10/18/16 15:50 Urine Urobilinogen 1.0 E.U./dL (<1 E.U./dL) H 10/18/16 15:50 Ur Leukocyte Esterase Negative Tunde/uL (NEGATIVE) 10/18/16 15:50 Urine RBC Negative /hpf (0-2) 10/18/16 15:50 Urine WBC 0 - 2 /hpf (0-6) 10/18/16 15:50 Ur Epithelial Cells 1 - 3 /hpf (0-5) 10/18/16 15:50 Amorphous Sediment Moderate 10/18/16 15:50 Urine Bacteria Many (NEG) 10/18/16 15:50 Urine Other Uyeast 10/18/16 15:50 Salicylates < 1 mg/dL (2.0-20.0) L 10/18/16 14:30 Urine Opiates Screen Negative (NEGATIVE) 10/18/16 15:50 Urine Methadone Screen Negative (NEGATIVE) 10/18/16 15:50 Acetaminophen < 10.0 ug/ml (10.0-20.0) L 10/18/16 14:30 Ur Barbiturates Screen Negative (NEGATIVE) 10/18/16 15:50 Ur Phencyclidine Scrn Negative (NEGATIVE) 10/18/16 15:50 Ur Amphetamines Screen Negative (NEGATIVE) 10/18/16 15:50 U Benzodiazepines Scrn Positive (NEGATIVE) H 10/18/16 15:50 U Oth Cocaine Metabols Negative (NEGATIVE) 10/18/16 15:50 U Cannabinoids Screen Negative (NEGATIVE) 10/18/16 15:50 Alcohol, Quantitative < 10 mg/dL (0-10) 10/18/16 13:00 Attending/Attestation - Attestation I have personally seen and examined this patient.: Yes I have fully participated in the care of the patient.: Yes I have reviewed all pertinent clinical information, including history, physical exam and plan: Yes Notes (Text): 10/22/16 15:06 Attending note; Patient seen and examined with bilingual medical receptionist. Patient is a 40 year old Female with PMHx significant for anxiety, depression and bipolar disorder is presenting with AMS following witnessed seizures x2 mostly secondary to multiple psych medications. Patient is back to base line.She is on Keppra. Neurology evaluation is appreciated. MRI showed periventricular white matter changes suspecting demyelinating disease. Patient is asymptomatic. Case discussed with neurology Dr. Beltrán in detail. Patient can be followed up as outpatient. Psychiatry evaluation with Dr. Velez appreciated. patient is cleared for discharge from psychiatrically point of view. upon discharge the patient will follow up with PMD DR. ugarte and psychiatry at [facility]. Follow-up with Dr. Beltrán to rule out demyelinating disease. diagnosis; Multiple drug use Anxiety depression 10/22/16 15:08
--- NOTE | 2016-10-22 08:21 | CON ---
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 The patient is very familiar to this provider as well as Dr. Kaur from multiple hospitalizations to the psychiatric inpatient unit. I reviewed Dr. Kaur's note and met with the patient at bedside ____ the patient ____ report ____ Dr. Adelso hussein regarding her current medications which include Effexor 100 mg daily, Seroquel 300 mg at bedtime and ____ mg in the morning time. The patient also reports that she has been taking trazodone 100 mg at bedtime. Presently, she denies being depressed, denied thoughts of harming herself or others and reports that her anxiety which has always been an issue is generally okay at this time. She is aler t and oriented x 3. Her eye contact is fair and she calmer than I have seen her during previous admi ssions to the psychiatric unit. I broached the topic of the benzos again that are positive in her ur ine. She reports that she has been taking extra Klonopin which is some of the same report that she g ave to Dr. Kaur. The patient also indicates that she is generally hopeful and she denies want ing any psychiatric stabilization on the inpatient unit. VITAL SIGNS AND LABORATORY DATA: Reviewed as were current medications. 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 I agree with Dr. Kaur's recommendations and the patient should be resumed on Seroquel, trazodo ne as well as Effexor if there are no medical contraindications. This senior writer will sign off on this c ase. The patient consistently reported stability to both Dr. Kaur yesterday and to this provi russell today regarding some medications symptoms and future planning. The patient has been quite commun icative in the past regarding her need for psychiatric stabilization. At this time, she denies feeli ng unstable and she defers on any psychiatric admission and does not meet criteria for such. Chris Martinez MD cc: [id number] TT: 10/20/2016 12:33:41 Confirmation # [id number] Dictation # [id number] tn
--- NOTE | 2016-10-22 08:23 | EEG ---
DATE: 10/19/2016 CONDITION OF THE RECORDING: Awake. No hyperventilation, no photic stimulation was done. HISTORY: Seizure. PAST MEDICAL HISTORY: Bipolar, drug overdose, suicide attempt. MEDICATIONS: Keppra. DESCRIPTION: Background activity of this tracing was composed of 9-10 cycles per second alpha-like a ctivity, small amount of beta activity, 16-20 cycles per second was noted in the tracing. Theta acti vity 5-7 cycles per second was noted in the tracing. Drowsiness was composed of mixed beta and theta activity. Photic stimulation did not change the record. No paroxysmal activity was seen in the rec ord. IMPRESSION: Normal awake, drowsy electroencephalography. Kirill Kilpatrick MD cc: [id number] TT: 10/19/2016 21:26:52 Confirmation # [id number] Dictation # [id number] annalee
== END 2016-10-21 19:41 | disposition home or self-care (01) | DRG 890 ==
LOC: ED 11:48 → ERH 14:20 → CCU 16:37 → 3RSO 10-19 18:43
PROVIDERS: ADMIT Internal Medicine; ATTEND Internal Medicine
DX: R56.9 Unspecified convulsions (principal); F19.10 Other psychoactive substance abuse, uncomplicated; F31.9 Bipolar disorder, unspecified; Z91.5 Personal history of self-harm; F60.3 Borderline personality disorder; R51 Headache; R00.0 Tachycardia, unspecified; F41.8 Other specified anxiety disorders; Y92.009 Unspecified place in unspecified non-institutional (private) residence as the place of occurrence of the external cause; Z87.891 Personal history of nicotine dependence

== ENCOUNTER 2017-06-20 14:06 | Inpatient (IN) | payer MEDICAID ==
[2017-06-20] MEDS ORDERED: Sodium Chloride 0.9% 1,000 ML IV STA (14:32)
[2017-06-20] MEDS ORDERED: TDAP Vaccine 0.5 mL Syr IM ONE (14:34)
--- NOTE | 2017-06-20 14:40 | ED PDOC ---
Arrival/HPI - General Chief Complaint: Altered Mental Status Time Seen by Provider: 06/20/17 14:23 Historian: Patient, EMS - History of Present Illness Narrative History of Present Illness (Text): 06/20/17 14:36 41 y/o female, no significant pmh, psychiatric history of depression/suicidal ideation, nkda, last tetanus doesn't remember, c/o over dosing on 30-40 tablets of benadryl 25mg from over the counter and 15 tablets of klonipin 1mg po tablet x 2 hours after arguing with her partner. Pt. stated that she took these tablets, feeling sleepy now, called the poison control which advised her to call 911 to the ER. Pt. stated that she vomited once here in the ER, no chest pain or shortness of breath, no palpitation, no rash, no numbness or tingling, no other medical or psychological complaints. Past Medical History - Provider Review Nursing Documentation Reviewed: Yes - Infectious Disease Hx of Infectious Diseases: None - Tetanus Immunization Tetanus Immunization: Unknown - Cardiac Hx Cardiac Disorders: No Hx Hypertension: No Hx Peripheral Edema: Yes (ble +1) - Pulmonary Hx Respiratory Disorders: No Hx Tuberculosis: No - Neurological Hx Seizures: No - HEENT Hx HEENT Disorder: No - Renal Hx Renal Disorder: No - Endocrine/Metabolic Hx Endocrine Disorders: No - Hematological/Oncological Hx Cancer: No - Integumentary Hx Dermatological Disorder: No - Musculoskeletal/Rheumatological Hx Falls: No - Gastrointestinal Hx Gastrointestinal Disorders: Yes (obese) - Genitourinary/Gynecological Hx Sexually Transmitted Diseases: No - Psychiatric Hx Psychophysiologic Disorder: Yes Hx Anxiety: Yes Hx Bipolar Disorder: Yes Hx Depression: Yes Hx Substance Use: No Other/Comment: adhd/affective mood disorder/ community resource/ self mutilation in the past/ multiple psych admissions, previous suicide attempt drug oc - Past Surgical History Past Surgical History: No Previous - Anesthesia Hx Anesthesia: No - Suicidal Assessment Feels Threatened In Home Enviroment: No Family/Social History - Physician Review Nursing Documentation Reviewed: Yes Family/Social History: Unknown Family HX Smoking Status: Light Smoker < 10 Cigarettes Daily Hx Alcohol Use: No Hx Substance Use: No Hx Substance Use Treatment: No Allergies/Home Meds Allergies/Adverse Reactions: Allergies Unobtainable Allergy (Verified 06/20/17 14:28) Home Medications: Home Meds Medication Instructions Recorded Confirmed Unobtainable 06/20/17 06/20/17 Review of Systems - Review of Systems Constitutional: absent: Fatigue, Weight Change Eyes: absent: Vision Changes ENT: absent: Hearing Changes Respiratory: absent: SOB, Cough Cardiovascular: absent: Chest Pain Gastrointestinal: absent: Abdominal Pain, Diarrhea, Nausea, Vomiting Skin: absent: Rash, Pruritis Neurological: absent: Headache, Dizziness Psychiatric: Depression, Suicidal Ideation. absent: Anxiety Physical Exam Vital Signs Temp Pulse Resp BP Pulse Ox 06/20/17 15:30 97 H 16 122/78 99 06/20/17 14:29 98.1 F 107 H 16 116/80 96 - Systems Exam Head: Present: Atraumatic, Normocephalic Pupils: Present: PERRL Extroacular Muscles: Present: EOMI Conjunctiva: Present: Normal Mouth: Present: Moist Mucous Membranes Neck: Present: Normal Range of Motion Respiratory/Chest: Present: Clear to Auscultation, Good Air Exchange. No: Respiratory Distress, Accessory Muscle Use Cardiovascular: Present: Regular Rate and Rhythm, Normal S1, S2. No: Murmurs Abdomen: Present: Normal Bowel Sounds. No: Tenderness, Distention, Peritoneal Signs, Rebound, Guarding Back: Present: Normal Inspection Upper Extremity: Present: Normal Inspection. No: Cyanosis, Edema Lower Extremity: Present: Normal Inspection. No: Edema Neurological: Present: GCS=15, CN II-XII Intact, Motor Func Grossly Intact, Memory Normal Skin: Present: Warm, Dry, Rashes (Lt. forearm: visible healing 4cm abrasion noted with no laceration, no streaking wound. ), Normal Color Psychiatric: Present: Alert, Oriented x 3, Normal Insight, Normal Concentration , Depressed Mood, Suicidal Ideation Medical Decision Making ED Course and Treatment: 06/20/17 14:41 -labs/ua/drug screen/alcohol -ekg -cxr -IVF/tdap -aspiration precaution -abrasion wound clean with saline/betadine, bacitracin/gauze dressing -poison controlled contact and to observe for any prolong QT -observe and reassess 06/20/17 16:04 -EKG: Sinus Tachycardia @ 106 BPM, no ST elevation or depression, no T wave inversion, no prolong QT. -Chest xray -Labs are non-significant -UA show -UDS show +cannabinoid -Alcohol/acetaminophen/salicylate levels within normal limit -Pt. is more arousable now and awake, likely vomitted the bendryl and klonipin in the ER initially. -Pt. needs to be admitted to tele to be observe for any prolong QT/cholinergic effect and close cardiac monitoring with 1:1 and psychiatric consult. -Paging hospitalist now for admission. 06/20/17 16:23 -I spoke to the hospitalist Dr. Alex, discussed about the case/labs/ radiology result, agreed to admit the patient and to the telemetry. -I discussed with Dr. Jeffrey, discussed about the case/labs/radiology results, he will put in the admission order. - Lab Interpretations Lab Results: 06/20/17 14:44 06/20/17 14:44 Lab Results 06/20/17 14:53: Urine Opiates Screen Negative, Urine Methadone Screen Negative, Ur Barbiturates Screen Negative, Ur Phencyclidine Scrn Negative, Ur Amphetamines Screen Negative, U Benzodiazepines Scrn Negative, U Oth Cocaine Metabols Negative, U Cannabinoids Screen Positive H 06/20/17 14:44: WBC 8.3 D, RBC 4.36, Hgb 13.0, Hct 39.1, MCV 89.7, MCH 29.8, MCHC 33.2, RDW 13.8, Plt Count 378, MPV 11.1 H, Gran % 52.8, Lymph % (Auto) 33.1 , [place] % (Auto) 10.1 H, Eos % (Auto) 3.4, Baso % (Auto) 0.6, Gran # 4.37, Lymph # (Auto) 2.7, [place] # (Auto) 0.8 H, Eos # (Auto) 0.3, Baso # (Auto) 0.05 06/20/17 14:44: Salicylates < 1 L, Acetaminophen < 10.0 L 06/20/17 14:44: Beta HCG, Quant < 2.39, Alcohol, Quantitative < 10 06/20/17 14:44: Sodium 148, Potassium 3.0 L, Chloride 110 H, Carbon Dioxide 24, Anion Gap 18, BUN 13, Creatinine 1.9 H, Est GFR ( Amer) 35, Est GFR (Non- Af Amer) 29, Random Glucose 111 H, Calcium 10.2, Magnesium 1.9, Total Bilirubin 0.3, AST 22, ALT 20, Alkaline Phosphatase 81, Total Protein 7.5, Albumin 4.2, Globulin 3.4, Albumin/Globulin Ratio 1.2 - RAD Interpretation Radiology Orders: 06/20/17 14:43 CHEST PORTABLE [RAD] Stat LUNGS: No active pulmonary disease. PLEURA: No significant pleural effusion identified, no pneumothorax apparent. CARDIOVASCULAR: Normal. OSSEOUS STRUCTURES: No significant abnormalities. VISUALIZED UPPER ABDOMEN: Normal. OTHER FINDINGS: None. IMPRESSION: No active disease. Contract Associate Manager: Radiologist - EKG Interpretation EKG Interpretation (Text): 06/20/17 14:42 -EKG: Sinus Tachycardia @ 106 BPM, no ST elevation or depression, no T wave inversion, no prolong QT. Interpreted by ED Physician: Yes Type: 12 lead EKG Comparison: Com.w/previous EKG - Medication Orders Current Medication Orders: Discontinued Medications Sodium Chloride (Sodium Chloride 0.9%) 1,000 mls @ 999 mls/hr IV .Q1H1M STA Stop: 06/20/17 15:32 Last Admin: 06/20/17 14:43 Dose: 999 mls/hr eMAR Start Stop Document 06/20/17 14:43 MS (Rec: 06/20/17 14:44 MS [facility] [id number] Intravenous Solution Start Date 06/20/17 Start Time 14:44 End Date 06/20/17 End time 15:44 Total Infusion Time 60 Potassium Chloride (K-Dur 20 Meq Er Tab) 40 meq PO STAT STA Stop: 06/20/17 15:41 Tetanus/Reduced Diphtheria/Acell Pertussis (Boostrix Vaccine Inj) 0.5 ml IM .ONCE ONE Stop: 06/20/17 14:35 Last Admin: 06/20/17 14:42 Dose: 0.5 ml MAR Immunization Data Document 06/20/17 14:42 MS (Rec: 06/20/17 14:43 MS [facility] [id number] Immunization Data Vaccine Information Sheet Given Yes Immunization Registry Document 06/20/17 14:42 MS (Rec: 06/20/17 14:43 MS [facility] [id number]) Immunization Registry Consent Date 06/20/17 - PA / TOOL PLANER SET UP OPERATOR / Resident Statement MD/DO has reviewed & agrees with the documentation as recorded. Disposition/Present on Arrival - Present on Arrival Any Indicators Present on Arrival: No History of DVT/PE: No History of Uncontrolled Diabetes: No Urinary Catheter: Yes (inserted in ed) History of Decub. Ulcer: No History Surgical Site Infection Following: None - Disposition Have Diagnosis and Disposition been Completed?: Yes Diagnosis: Overdose, Suicidal overdose, Hypokalemia, Drug abuse Disposition: HOSPITALIZED Disposition Time: 16:07 Patient Plan: Admission, Telemetry Patient Problems: Current Active Problems Problem Status Onset Suicidal overdose Acute Overdose Acute Hypokalemia Acute Drug abuse Acute Condition: STABLE Referrals: Dayne Valdivia MD [Primary Care Provider] - Follow up with primary Forms: [employer] (Romanian)
[2017-06-20 15:03] LABS: BASO # 0.05 K/mm3 (0.0-2.0); BASO % 0.6 % (0.0-3.0); EOS # 0.3 (0.0-0.7); EOS % 3.4 % (1.5-5.0); GRAN # 4.37 (1.4-6.5); GRAN % 52.8 % (50.0-68.0); LYMPH # 2.7 (1.2-3.4); LYMPH % 33.1 % (22.0-35.0); MEAN CELL VOLUME 89.7 fl (80.0-105.0); MEAN CORPUSCULAR HEMOGLOBIN 29.8 pg (25.0-35.0); MEAN CORPUSCULAR HGB CONC 33.2 g/dl (31.0-37.0); MEAN PLATELET VOLUME 11.1 fl (7.0-11.0); MONO # 0.8 (0.1-0.6); MONO % 10.1 % (1.0-6.0); RBC 4.36 10^6/uL (3.5-6.1); RED CELL DISTRIBUTION WIDTH 13.8 % (11.5-14.5); WHITE BLOOD COUNT 8.3 10^3/ul (4.5-11.0)
[2017-06-20 15:12] LABS: ALB/GLOB RATIO 1.2 (1.1-1.8); ALBUMIN 4.2 g/dL (3.0-4.8); CALCIUM 10.2 mg/dL (8.4-10.5); MAGNESIUM 1.9 mg/dL (1.7-2.2)
[2017-06-20 15:14] LABS: ACETAMINOPHEN < 10.0 ug/ml (10.0-20.0); SALICYLATE < 1 mg/dL (2.0-20.0)
[2017-06-20] MEDS ORDERED: Potassium Chloride 20 mEq ER Tab PO STA (15:40)
[2017-06-20 16:42] LABS: BENZODIAZEPINES, UR NEGATIVE (NEGATIVE); PHENCYCLIDINE, UR NEGATIVE (NEGATIVE)
[2017-06-20 16:45] LABS: BARBITURATES, UR NEGATIVE (NEGATIVE); OPIATES, UR NEGATIVE (NEGATIVE)
--- NOTE | 2017-06-20 17:02 | RAD ---
HISTORY: medical clearance COMPARISON: 05/06/2016 FINDINGS: LUNGS: No active pulmonary disease. PLEURA: No significant pleural effusion identified, no pneumothorax apparent. CARDIOVASCULAR: Normal. OSSEOUS STRUCTURES: No significant abnormalities. VISUALIZED UPPER ABDOMEN: Normal. OTHER FINDINGS: None. IMPRESSION: No active disease.
[2017-06-20] MEDS: Sodium Chloride 0.9% 1,000 ML IV SCH (17:58)
[2017-06-20 18:04] LABS: URINE BILIRUBIN NEGATIVE (NEGATIVE); URINE BLOOD NEGATIVE (NEGATIVE); URINE GLUCOSE (UA) NEGATIVE (NEGATIVE); URINE LEUKOCYTE ESTERASE NEGATIVE Leu/uL (NEGATIVE); URINE NITRATE NEGATIVE (NEGATIVE); URINE PROTEIN TRACE mg/dL (<30 mg/dL); URINE UROBILINOGEN 0.2 E.U./dL (<1 E.U./dL)
--- NOTE | 2017-06-20 18:06 | CP.PCM.HP ---
<Suraj Lozoya - Last Filed: 06/20/17 18:32> History of Present Illness - History of Present Illness History of Present Illness: PGY-1 H&P for Dr. Alex CC: "I don't feel well." This is a 41 year old female with PMHx Anxiety, bipolar disorder, multiple suicide attempts who presents to the ED brought in by ambulance due to lethargy. Per patient, she states that her son called an ambulance because she was lethargic and sleepy after ingesting multiple medications. Patient herself is offering an unreliable history at this time. Patient states that she took all of the benadryl tablets because of allergy to cat hair. Patient states that the tablets were not working, so she started taking more. Per ED triage, they were contacted by poison control since the patient apparently took 30-40 tablets of Benadryl after having an argument with her boyfriend. Per ED note, patient also took 15 tablets of Klonopin 1 mg after the argument. Per patient, she denies suicidal/homicidal ideation and auditory/visual hallucinations. When asked about the hylton on her left wrist, she replied that she didn't know how they happened. PMHx: Anxiety, Bipolar disorder, Depression, multiple suicide attempts PSHx: Denies Allergies: Cat hair Social Hx: Current smoker 1 pack per day for the past 21 years. Denies alcohol, drugs. Lives at home with son and "," but later stated only living with the son. Per patient, the son is in a gang. Patient is not currently employed. Family Hx: Denies, but upon review of the EMR, the son has stated in the past that aunt and cousin have history of seizure. Also per EMR, the son also had a seizure following benzo overdose PMD: Dr. Valdivia Psychiatrist: Dr. Llamas Seldovia medications as per pharmacy: Fluticasone/sameterol 113/14 mcg 1 puff Q12H, Aderall ER 15 mg daily, Seroquel 100 mg PO BID, Klonopin 1 mg PO BID, Ambien 10 mg daily. The Klonopin, Ambien, Aderall were prescribed by Loren Kenny APN. Present on Admission - Present on Admission Any Indicators Present on Admission: No Review of Systems - Constitutional Constitutional: absent: Chills, Fever - EENT Eyes: absent: Change in Vision Ears: absent: Decreased Hearing Nose/Mouth/Throat: absent: Nasal Congestion - Cardiovascular Cardiovascular: absent: Chest Pain - Respiratory Respiratory: absent: Dyspnea - Gastrointestinal Gastrointestinal: absent: Abdominal Pain, Constipation, Diarrhea, Nausea, Vomiting - Genitourinary Genitourinary: absent: Dysuria - Musculoskeletal Musculoskeletal: absent: Back Pain - Integumentary Integumentary: absent: Rash - Neurological Neurological: absent: Dizziness - Psychiatric Psychiatric: Change in Appetite (decreased). absent: Hallucinations, Homicidal Ideation, Suicidal Ideation - Endocrine Endocrine: absent: Palpitations Past Patient History - Infectious Disease Hx of Infectious Diseases: None - Tetanus Immunizations Tetanus Immunization: Unknown - Past Medical History & Family History Past Medical History?: Yes - Past Social History Smoking Status: Light Smoker < 10 Cigarettes Daily - CARDIAC Hx Cardiac Disorders: No Hx Hypertension: No Hx Peripheral Edema: Yes (ble +1) - PULMONARY Hx Respiratory Disorders: No Hx Tuberculosis: No - NEUROLOGICAL Hx Seizures: No - HEENT Hx HEENT Problems: No - RENAL Hx Chronic Kidney Disease: No - ENDOCRINE/METABOLIC Hx Endocrine Disorders: No - HEMATOLOGICAL/ONCOLOGICAL Hx Cancer: No - INTEGUMENTARY Hx Dermatological Problems: No - MUSCULOSKELETAL/RHEUMATOLOGICAL Hx Falls: No - GASTROINTESTINAL Hx Gastrointestinal Disorders: Yes (obese) - GENITOURINARY/GYNECOLOGICAL Hx Sexually Transmitted Disorders: No - PSYCHIATRIC Hx Psychophysiologic Disorder: Yes Hx Anxiety: Yes Hx Bipolar Disorder: Yes Hx Depression: Yes Hx Substance Use: No Other/Comment: adhd/affective mood disorder/ community resource/ self mutilation in the past/ multiple psych admissions, previous suicide attempt drug oc - SURGICAL HISTORY Hx Surgeries: No - ANESTHESIA Hx Anesthesia: No Meds Home Medications: Home Medication List Medication Instructions Recorded Confirmed Type DiphenhydrAMINE [Benadryl] 50 mg IM Q6H PRN vial 06/21/17 Rx Haloperidol Lactate [Haldol] 5 mg IM Q6H PRN vial 06/21/17 Rx Zolpidem [Ambien] 10 mg PO HS PRN tab 06/21/17 Rx clonazePAM [Klonopin] 0.5 mg PO TID PRN tab 06/21/17 Rx Allergies/Adverse Reactions: Allergies Allergy/AdvReac Type Severity Reaction Status Date / Time Unobtainable Allergy Verified 06/20/17 19:58 Physical Exam - Constitutional Appears: No Acute Distress - Head Exam Head Exam: ATRAUMATIC, NORMOCEPHALIC - Eye Exam Eye Exam: EOMI, PERRL - ENT Exam ENT Exam: Mucous Membranes Moist - Respiratory Exam Respiratory Exam: Clear to Auscultation Bilateral, NORMAL BREATHING PATTERN. absent: Rales, Rhonchi, Wheezes - Cardiovascular Exam Cardiovascular Exam: REGULAR RHYTHM, +S1, +S2 - GI/Abdominal Exam GI & Abdominal Exam: Normal Bowel Sounds, Soft. absent: Distended, Guarding, Tenderness - Extremities Exam Extremities exam: Positive for: pedal pulses present. Negative for: tenderness - Neurological Exam Neurological exam: Alert, Oriented x3 Additional comments: Uncooperative for cranial nerve testing. - Psychiatric Exam Additional comments: Patient unreliability in questioning: intermittently presents illogical or inappropriate thought patterns and answers in response to questioning. Unclear if from psychosis or due to medication overuse. - Skin Skin Exam: Dry, Warm Additional comments: Multiple cuts on the left wrist. Results - Vital Signs Recent Vital Signs: Last Vital Signs Temp 98.1 F 06/20/17 14:29 Pulse 97 H 06/20/17 15:30 Resp 16 06/20/17 15:30 BP 122/78 06/20/17 15:30 Pulse Ox 99 06/20/17 15:30 - Labs Result Diagrams: 06/20/17 14:44 06/20/17 14:44 Assessment & Plan - Assessment and Plan (Free Text) Assessment: This is a 41 year old female with PMHx Anxiety, bipolar disorder, multiple suicide attempts who presents to the ED brought in by ambulance due to lethargy. This is due to ingesting a large amount of Benadryl and Klonopin per EMR. Patient herself only admits to the Benadryl ingestion. Will monitor overnight in telemetry for suicidal observation and monitor for QT interval prolongation. Plan: 1. Medication overdose Per ED, overdosed on both Benadryl and Klonopin Avoid QT prolonging agents unless absolutely necessary Monitor on telemetry with EKG ordered for morning Per EKG in ED, QTc 475 NS 100 cc/hr NPO diet 1:1 observation Psychiatry consulted, recommendations appreciated 2. Questionable Demyelinating Disease Evidence seen on prior MRI brain Ordered MRI brain with and without contrast Neurology consulted, recommendations appreciated 3. Prophylaxis GI: Protonix DVT: will hold for now Patient seen and discussed with Dr. Alex <Maru Alex - Last Filed: 06/21/17 17:36> Results - Vital Signs Recent Vital Signs: Last Vital Signs Temp 99.5 F 06/21/17 14:00 Pulse 78 06/21/17 15:16 Resp 20 06/21/17 14:00 BP 105/73 06/21/17 14:00 Pulse Ox 99 06/20/17 20:10 - Labs Result Diagrams: 06/21/17 11:05 06/21/17 11:05 Labs: Laboratory Results - last 24 hr 06/20/17 06/21/17 06/21/17 17:45 11:05 11:05 WBC 8.0 RBC 4.18 Hgb 12.3 Hct 37.7 MCV 90.2 MCH 29.4 MCHC 32.6 RDW 13.8 Plt Count 332 MPV 10.5 Sodium 148 Potassium 3.4 L Chloride 108 H Carbon Dioxide 25 Anion Gap 18 BUN 12 Creatinine 1.4 H Est GFR ( Amer) 50 Est GFR (Non-Af Amer) 41 Random Glucose 94 Calcium 10.0 Total Bilirubin 0.3 AST 27 ALT 23 Alkaline Phosphatase 71 Total Protein 7.3 Albumin 4.0 Globulin 3.3 Albumin/Globulin Ratio 1.2 Urine Color Yellow Urine Appearance Clear Urine pH 6.0 Ur Specific [place] 1.025 Urine Protein Trace H Urine Glucose (UA) Negative Urine Ketones Negative Urine Blood Negative Urine Nitrate Negative Urine Bilirubin Negative Urine Urobilinogen 0.2 Ur Leukocyte Esterase Negative Urine RBC 1 - 3 Urine WBC 5 - 10 Ur Epithelial Cells 1 - 3 Urine Bacteria Mod Hyaline Casts 0 - 2 Attending/Attestation - Attestation I have personally seen and examined this patient.: Yes I have fully participated in the care of the patient.: Yes I have reviewed all pertinent clinical information: Yes Notes (Text): 06/21/17 17:17 Attending note; Patient seen and examined with resident in ER. Patient is sleepy. History not reliable. Chart reviewed. Patient is a 41 year old female with PMHx Anxiety, bipolar disorder, multiple suicide attempts who presents to the ED brought in by ambulance due to lethargy. Per patient, she states that her son called an ambulance because she was lethargic and sleepy after ingesting multiple medications. Patient said she took multiple Benadryl pills and Klonopin. Poison control called. Continue to monitor EKG and labs in a.m.. Acute renal insufficiency; started on IV fluids. Currently on one-to-one for possible suicidal ideation. Psychiatric evaluation requested. Monitor patient closely.
[2017-06-20 18:08] LABS: URINE APPEARANCE CLEAR (CLEAR); URINE COLOR YELLOW (YELLOW)
--- NOTE | 2017-06-20 18:25 | CARD ---
APPROVED REPORT EKG Measurement Heart [id number] <Conclusion> Sinus tachycardia Otherwise normal ECG
[2017-06-20 18:38] LABS: URINE BACTERIA MOD (NEG); URINE HYALINE CAST 0 - 2 /hpf
[2017-06-20 20:38] VITALS: BMI 31.7
[2017-06-20] MEDS ORDERED: Pneumococcal 23-Valent Vaccine IM ONE (20:38)
[2017-06-20] MEDS ORDERED: Influenza Vaccine 60 mcg/0.5 mL SYR (4YR UP) IM ONE (20:38)
[2017-06-20] MEDS ORDERED: DiphenhydrAMINE 50 mg/ml Inj IM PRN (22:42)
[2017-06-20] MEDS ORDERED: DiphenhydrAMINE 50 mg/ml Inj ONE (22:51)
[2017-06-21] MEDS: Sodium Chloride 0.9% 1,000 ML IV SCH ×3 (03:15→23:10)
--- NOTE | 2017-06-21 09:57 | CP.PCM.CON ---
History of Present Illness - History of Present Illness History of Present Illness: Neurology consult note: 41 year old female with PMHx Anxiety, bipolar disorder, multiple suicide attempts who presents to the ED for lethargic and sleepy after ingesting 8? Benadryl tablets because of supposedly allergy to cat hair. Patient states that she first took 2 not working, so she started taking more. but patient reportedly took 30-40 tablets of Benadryl after having an argument with her boyfriend and 15 tablets of Klonopin 1 mg after the argument. Patient has a history of suicidal/homicidal ideation and auditory/visual hallucinations. Neurology consulted for MRI from 09/2016 showing multiple white matter lesions in perventricular white matter, oval shaped and perpendicular to ventricular surface. Patient denies any recent neurological deficits in the past few months. No headaches, dizziness, focal deficits, slurred speech, facial droop, and gait dysfunction. 12 Point ROS performed and neg other than stated above PMHx: Anxiety, Bipolar disorder, Depression, multiple suicide attempts PSHx: Denies Allergies: Cat hair? Social Hx: Current smoker 1 PPD for 21 years. Denies alcohol, drugs. Family Hx: Denies Review of Systems - Review of Systems All systems: reviewed and no additional remarkable complaints except Past Patient History - Infectious Disease Hx of Infectious Diseases: None - Tetanus Immunizations Tetanus Immunization: Unknown - Past Medical History & Family History Past Medical History?: Yes - Past Social History Smoking Status: Light Smoker < 10 Cigarettes Daily - CARDIAC Hx Cardiac Disorders: Yes Hx Hypertension: No Hx Peripheral Edema: Yes (ble +1) - PULMONARY Hx Respiratory Disorders: Yes (SMOKES EVERY NOW AND THEN) Hx Tuberculosis: No - NEUROLOGICAL Hx Neurological Disorder: Yes Hx Seizures: No - HEENT Hx HEENT Problems: No - RENAL Hx Chronic Kidney Disease: No - ENDOCRINE/METABOLIC Hx Endocrine Disorders: No - HEMATOLOGICAL/ONCOLOGICAL Hx Cancer: No - INTEGUMENTARY Hx Dermatological Problems: Yes Other/Comment: LACERATIONS TO LEFT FOREARM - MUSCULOSKELETAL/RHEUMATOLOGICAL Hx Falls: Yes - GASTROINTESTINAL Hx Gastrointestinal Disorders: Yes (obese) - GENITOURINARY/GYNECOLOGICAL Hx Sexually Transmitted Disorders: No - PSYCHIATRIC Hx Psychophysiologic Disorder: Yes Hx Anxiety: Yes Hx Bipolar Disorder: Yes Hx Depression: Yes Hx Substance Use: No Other/Comment: adhd/affective mood disorder/ community resource/ self mutilation in the past/ multiple psych admissions, previous suicide attempt drug oc - SURGICAL HISTORY Hx Surgeries: No - ANESTHESIA Hx Anesthesia: No Meds Allergies/Adverse Reactions: Allergies Allergy/AdvReac Type Severity Reaction Status Date / Time Unobtainable Allergy Verified 06/20/17 19:58 - Medications Medications: Current Medications Clonazepam (Klonopin) 0.5 mg PO TID PRN; Protocol PRN Reason: Agitation Last Admin: 06/21/17 09:51 Dose: 0.5 mg Sodium Chloride (Sodium Chloride 0.9%) 1,000 mls @ 100 mls/hr IV .Q10H [facility] Last Admin: 06/21/17 03:15 Dose: Not Given Pantoprazole Sodium (Protonix Inj) 40 mg IVP DAILY [facility] Last Admin: 06/21/17 09:52 Dose: Not Given Physical Exam - Constitutional Appears: No Acute Distress - Head Exam Head Exam: ATRAUMATIC, NORMOCEPHALIC - Eye Exam Eye Exam: EOMI, PERRL Pupil Exam: NORMAL ACCOMODATION - ENT Exam ENT Exam: Mucous Membranes Moist - Respiratory Exam Respiratory Exam: Clear to Auscultation Bilateral. absent: Rales, Wheezes - Cardiovascular Exam Cardiovascular Exam: REGULAR RHYTHM, RRR, +S1, +S2 - GI/Abdominal Exam GI & Abdominal Exam: Normal Bowel Sounds, Soft. absent: Distended, Tenderness - Extremities Exam Extremities exam: Negative for: calf tenderness, pedal edema - Neurological Exam Neurological exam: Alert, CN II-XII Intact, Oriented x3, Reflexes Normal - Psychiatric Exam Psychiatric exam: Normal Affect, Normal Mood - Skin Skin Exam: Dry, Intact, Warm Results - Vital Signs Recent Vital Signs: Last Vital Signs Temp 97.7 F 06/20/17 20:10 Pulse 88 06/21/17 05:38 Resp 16 06/20/17 20:10 BP 128/88 06/20/17 20:10 Pulse Ox 99 06/20/17 20:10 - Labs Result Diagrams: 06/20/17 14:44 06/20/17 14:44 Labs: Laboratory Results - last 24 hr 06/20/17 17:45 Urine Color Yellow Urine Appearance Clear Urine pH 6.0 Ur Specific [place] 1.025 Urine Protein Trace H Urine Glucose (UA) Negative Urine Ketones Negative Urine Blood Negative Urine Nitrate Negative Urine Bilirubin Negative Urine Urobilinogen 0.2 Ur Leukocyte Esterase Negative Urine RBC 1 - 3 Urine WBC 5 - 10 Ur Epithelial Cells 1 - 3 Urine Bacteria Mod Hyaline Casts 0 - 2 Assessment & Plan - Assessment and Plan (Free Text) Assessment: 41 year old female with PMHx Anxiety, bipolar disorder, multiple suicide attempts who presents to the ED for over dose on Benadryl and klonopin, Neurology consulted for MRI from 09/2016 showing multiple white matter lesions in perventricular white matter, oval shaped and perpendicular to ventricular surface. - Patient is currently asymptomatic. Denies any headaches, dizziness, focal deficits, slurred speech, facial droop, and gait dysfunction. - Will recommend outpatient neurological follow - Follow up psych recs - PT and OT Case and plan was reviewed and discussed with Dr Millard.
[2017-06-21 10:29] VITALS: O2SAT 99
[2017-06-21 11:09] LABS: HEMOGLOBIN 12.3 g/dL (12.0-16.0); MEAN CELL VOLUME 90.2 fl (80.0-105.0); MEAN CORPUSCULAR HEMOGLOBIN 29.4 pg (25.0-35.0); MEAN CORPUSCULAR HGB CONC 32.6 g/dl (31.0-37.0); MEAN PLATELET VOLUME 10.5 fl (7.0-11.0); RBC 4.18 10^6/uL (3.5-6.1); RED CELL DISTRIBUTION WIDTH 13.8 % (11.5-14.5)
[2017-06-21 11:20] LABS: ALB/GLOB RATIO 1.2 (1.1-1.8)
[2017-06-21] MEDS ORDERED: Potassium Chloride 20 mEq ER Tab PO ONE (11:33)
[2017-06-21] MEDS ORDERED: DiphenhydrAMINE 50 mg/ml Inj IM STA (12:27)
[2017-06-21] MEDS ORDERED: DiphenhydrAMINE 50 mg/ml Inj IM PRN (12:40)
--- NOTE | 2017-06-21 12:42 | CP.PCM.PCO ---
Addendum Addendum: 06/21/17 12:26 pt was seen with LEGAL COORDINATOR pt was admitted for possible suicidal attempt as per ED pt intentionally overdosed on benadryl and klonopin pt was providing inconsistent history and details pt said she took benadryl because she has allergy for cat, pt was not sure how long she has cat for pt said that she did not take any klonopin pt was screaming and yelling that he is going to [facility] the hospital because "everybody is lying on me, this is a nursing home", was not able to explain what would be rational for the hospital to lie on her. pt is paranoid/guarded/ irritable, agitated and confused. this chief underwriter explained why pt needs to stay in the hospital, but pt was not able to comprehend pt did not give permission to speak to her son or boyfriend pt was offered admission, but pt declined that offer pt is in high risk of harming self and no collaterals available, pt has h/o suicidal attempts, h/o providing conflicting information. will call [facility] for screening please see LEGAL COORDINATOR note for more detailed information. later on edgar Patino was called Haldol 5mg +Benadryl 50mg IM ordered, the q6hrs prn for severe agitation as per pt she is allergic to geodon, but as per this chief underwriter assessment in the past pt c/o "anxiety" on the geodon. d/w , pt's QTC are went back to normal, pt is medically stable for screening 06/21/17 12:34
[2017-06-21 14:25] VITALS: BP 105/73; RESP 20
--- NOTE | 2017-06-21 17:00 | CP.PCM.PN ---
<Suraj Lozoya - Last Filed: 06/21/17 16:56> Subjective - Date & Time of Evaluation Date of Evaluation: 06/21/17 Time of Evaluation: 07:00 - Subjective Subjective: Medicine progress note for Dr. Alex Patient seen and examined at bedside early this morning. Patient states that she is feeling fine. No acute complaints. When questioned today, it seems that the patient is saying something different today. Patient states that she only took 8 tabs of Benadryl at night due to her coughing and allergies. She states that she only took 1 tab of Klonopin in the morning. Patient also states that she had a previous workup at [facility] including a spinal tap performed by Dr. Mccloud. Patient states that this was done about 15 years ago and is negative for MS. Patient also states that she does not want any treatment for MS as "those pills are toxic." Patient also states that the scratches on her left wrist are from her cat. Objective - Vital Signs/Intake and Output Vital Signs (last 24 hours): Temp Pulse Resp BP Pulse Ox 99.5 F 78 20 105/73 99 06/21/17 14:00 06/21/17 15:16 06/21/17 14:00 06/21/17 14:00 06/20/17 20:10 Intake and Output: 06/21/17 06/21/17 06:59 18:59 Intake Total 600 Balance 600 - Medications Medications: Current Medications Clonazepam (Klonopin) 0.5 mg PO TID PRN; Protocol PRN Reason: Agitation Last Admin: 06/21/17 09:51 Dose: 0.5 mg Diphenhydramine HCl (Benadryl) 50 mg IM Q6H PRN PRN Reason: Agitation Haloperidol Lactate (Haldol) 5 mg IM Q6H PRN; Protocol PRN Reason: Agitation Sodium Chloride (Sodium Chloride 0.9%) 1,000 mls @ 100 mls/hr IV .Q10H TEJINDER Last Admin: 06/21/17 13:41 Dose: Not Given Pantoprazole Sodium (Protonix Ec Tab) 40 mg PO ACB TEJINDER Quetiapine Fumarate (Seroquel) 100 mg PO BID TEJINDER PRN Reason: Protocol Zolpidem Tartrate (Ambien) 5 mg PO HS PRN; Protocol PRN Reason: Insomnia - Labs Labs: 06/21/17 11:05 06/21/17 11:05 - Constitutional Appears: No Acute Distress - Head Exam Head Exam: ATRAUMATIC, NORMOCEPHALIC - Eye Exam Eye Exam: EOMI, Normal appearance - ENT Exam ENT Exam: Mucous Membranes Moist - Respiratory Exam Respiratory Exam: Clear to Ausculation Bilateral, NORMAL BREATHING PATTERN. absent: Rales, Rhonchi, Wheezes - Cardiovascular Exam Cardiovascular Exam: REGULAR RHYTHM, +S1, +S2 - GI/Abdominal Exam GI & Abdominal Exam: Soft, Normal Bowel Sounds. absent: Distended, Guarding, Tenderness - Extremities Exam Extremities Exam: absent: Tenderness - Neurological Exam Neurological Exam: Alert, Awake, Oriented x3 - Psychiatric Exam Psychiatric exam: Agitated, Anxious - Skin Skin Exam: Dry, Warm Additional comments: Multiple cuts on the left wrist. Assessment and Plan - Assessment and Plan (Free Text) Assessment: This is a 41 year old female with PMHx Anxiety, bipolar disorder, multiple suicide attempts who presents to the ED brought in by ambulance due to lethargy. This is due to ingesting a large amount of Benadryl and Klonopin per EMR. Patient had repeat EKG which showed improvement in QT interval. Patient is medically stable for psychiatric admission. Patient very agitated and combative with staff today. Two code antonio were called. Per psychiatry, patient medicated and placed on restraints. Pending [facility] screening for involuntary commitment. Plan: 1. Medication overdose due to possible suicide attempt Avoid QT prolonging agents unless absolutely necessary Repeat EKG showed resolution of QT prolongation 1:1 observation Psychiatry consulted, recommendations appreciated * Klonopin 0.5 mg TID prn agitation * Benadryl 50 mg IM Q6 prn agitation * Haldol 5 mg IM Q6 prn agitation * Seroquel 100 mg PO BID TEJINDER * Ambien 5 mg PO HS prn insomnia 2. Questionable Demyelinating Disease Evidence seen on prior MRI brain Per patient, she had a prior workup for MS which was negative 3. Prophylaxis GI: Protonix DVT: will hold as patient is severely agitated Disposition: Patient medically stable for psychiatric admission. Pending [facility] screening for involuntary commitment. Patient seen and discussed with Dr. Alex <Maru Alex - Last Filed: 06/21/17 17:38> Objective - Vital Signs/Intake and Output Vital Signs (last 24 hours): Temp Pulse Resp BP Pulse Ox 99.5 F 78 20 105/73 99 06/21/17 14:00 06/21/17 15:16 06/21/17 14:00 06/21/17 14:00 06/20/17 20:10 Intake and Output: 06/21/17 06/21/17 06:59 18:59 Intake Total 600 Balance 600 - Medications Medications: Current Medications Clonazepam (Klonopin) 0.5 mg PO TID PRN; Protocol PRN Reason: Agitation Last Admin: 06/21/17 09:51 Dose: 0.5 mg Diphenhydramine HCl (Benadryl) 50 mg IM Q6H PRN PRN Reason: Agitation Haloperidol Lactate (Haldol) 5 mg IM Q6H PRN; Protocol PRN Reason: Agitation Sodium Chloride (Sodium Chloride 0.9%) 1,000 mls @ 100 mls/hr IV .Q10H TEJINDER Last Admin: 06/21/17 13:41 Dose: Not Given Pantoprazole Sodium (Protonix Ec Tab) 40 mg PO ACB TEJINDER Quetiapine Fumarate (Seroquel) 100 mg PO BID TEJINDER PRN Reason: Protocol Zolpidem Tartrate (Ambien) 5 mg PO HS PRN; Protocol PRN Reason: Insomnia - Labs Labs: 06/21/17 11:05 06/21/17 11:05 Attending/Attestation - Attestation I have personally seen and examined this patient.: Yes I have fully participated in the care of the patient.: Yes I have reviewed all pertinent clinical information, including history, physical exam and plan: Yes Notes (Text): 06/21/17 17:36 Attending note; Patient seen and examined with resident. Patient is a 41 year old female with PMHx Anxiety, bipolar disorder, multiple suicide attempts who presents to the ED brought in by ambulance due to lethargy. Per patient, she states that her son called an ambulance because she was lethargic and sleepy after ingesting multiple medications. Patient said she took multiple Benadryl pills . Denied suicidal ideation. Creatinine improved. Patient is tolerating diet well. Currently on one-to-one for possible suicidal ideation. Psychiatric evaluation appreciated. Patient is medically stable. Patient refused inpatient psychiatric evaluation. Psychiatrist suggesting involuntary commitment evaluation with [facility]. Patient cannot sign AMA. Started on Ambien, Haldol, Seroquel. Monitor patient closely. 06/21/17 17:37
--- NOTE | 2017-06-21 22:32 | CARD ---
APPROVED REPORT EKG Measurement Heart [id number] <Conclusion> Normal sinus rhythm Normal ECG
[2017-06-22 07:15] VITALS: PULSE 90
[2017-06-22] MEDS ORDERED: Pantoprazole 40 mg EC Tab PO SCH (07:30)
--- NOTE | 2017-06-22 10:59 | CP.PCM.DIS ---
<Suraj Lozoya S - Last Filed: 06/22/17 12:56> Provider - Provider Date of Admission: 06/20/17 16:24 Attending physician: Maru Alex MD Primary care physician: Dayne Valdivia MD Consults: Psychiatry: Dr. Kaur Time Spent in preparation of Discharge (in minutes): 40 Diagnosis - Discharge Diagnosis (1) Overdose Status: Acute Priority: High (2) Suicidal behavior Status: Acute Priority: High (3) Agitated Status: Acute Priority: High (4) History of anxiety Status: Chronic Priority: Medium (5) History of bipolar disorder Status: Chronic Priority: Medium (6) History of depression Status: Chronic Priority: Medium (7) History of borderline personality disorder Status: Chronic Priority: Medium Hospital Course - Lab Results Lab Results: Micro Results 06/21/17 06:30 Urine,Clean Catch Urine Culture - Final No Growth (<1,000 CFU/ML) Most Recent Lab Values WBC 8.0 10^3/ul (4.5-11.0) 06/21/17 11:05 RBC 4.18 10^6/uL (3.5-6.1) 06/21/17 11:05 Hgb 12.3 g/dL (12.0-16.0) 06/21/17 11:05 Hct 37.7 % (36.0-48.0) 06/21/17 11:05 MCV 90.2 fl (80.0-105.0) 06/21/17 11:05 MCH 29.4 pg (25.0-35.0) 06/21/17 11:05 MCHC 32.6 g/dl (31.0-37.0) 06/21/17 11:05 RDW 13.8 % (11.5-14.5) 06/21/17 11:05 Plt Count 332 10^3/uL (120.0-450.0) 06/21/17 11:05 MPV 10.5 fl (7.0-11.0) 06/21/17 11:05 Gran % 52.8 % (50.0-68.0) 06/20/17 14:44 Lymph % (Auto) 33.1 % (22.0-35.0) 06/20/17 14:44 [place] % (Auto) 10.1 % (1.0-6.0) H 06/20/17 14:44 Eos % (Auto) 3.4 % (1.5-5.0) 06/20/17 14:44 Baso % (Auto) 0.6 % (0.0-3.0) 06/20/17 14:44 Gran # 4.37 (1.4-6.5) 06/20/17 14:44 Lymph # (Auto) 2.7 (1.2-3.4) 06/20/17 14:44 [place] # (Auto) 0.8 (0.1-0.6) H 06/20/17 14:44 Eos # (Auto) 0.3 (0.0-0.7) 06/20/17 14:44 Baso # (Auto) 0.05 K/mm3 (0.0-2.0) 06/20/17 14:44 Sodium 148 mmol/L (132-148) 06/21/17 11:05 Potassium 3.4 mmol/L (3.6-5.0) L 06/21/17 11:05 Chloride 108 mmol/L (98-107) H 06/21/17 11:05 Carbon Dioxide 25 mmol/L (21-33) 06/21/17 11:05 Anion Gap 18 (10-20) 06/21/17 11:05 BUN 12 mg/dL (7-21) 06/21/17 11:05 Creatinine 1.4 mg/dl (0.7-1.2) H 06/21/17 11:05 Est GFR ( Amer) 50 06/21/17 11:05 Est GFR (Non-Af Amer) 41 06/21/17 11:05 Random Glucose 94 mg/dL (70-110) 06/21/17 11:05 Calcium 10.0 mg/dL (8.4-10.5) 06/21/17 11:05 Magnesium 1.9 mg/dL (1.7-2.2) 06/20/17 14:44 Total Bilirubin 0.3 mg/dL (0.2-1.3) 06/21/17 11:05 AST 27 U/L (14-36) 06/21/17 11:05 ALT 23 U/L (7-56) 06/21/17 11:05 Alkaline Phosphatase 71 U/L (38-126) 06/21/17 11:05 Total Protein 7.3 g/dL (5.8-8.3) 06/21/17 11:05 Albumin 4.0 g/dL (3.0-4.8) 06/21/17 11:05 Globulin 3.3 gm/dL 06/21/17 11:05 Albumin/Globulin Ratio 1.2 (1.1-1.8) 06/21/17 11:05 Beta HCG, Quant < 2.39 mIU/mL (0-6.15) 06/20/17 14:44 Urine Color Yellow (YELLOW) 06/20/17 17:45 Urine Appearance Clear (CLEAR) 06/20/17 17:45 Urine pH 6.0 (4.7-8.0) 06/20/17 17:45 Ur Specific [place] 1.025 (1.005-1.035) 06/20/17 17:45 Urine Protein Trace mg/dL (<30 mg/dL) H 06/20/17 17:45 Urine Glucose (UA) Negative mg/dL (NEGATIVE) 06/20/17 17:45 Urine Ketones Negative mg/dL (NEGATIVE) 06/20/17 17:45 Urine Blood Negative (NEGATIVE) 06/20/17 17:45 Urine Nitrate Negative (NEGATIVE) 06/20/17 17:45 Urine Bilirubin Negative (NEGATIVE) 06/20/17 17:45 Urine Urobilinogen 0.2 E.U./dL (<1 E.U./dL) 06/20/17 17:45 Ur Leukocyte Esterase Negative Tunde/uL (NEGATIVE) 06/20/17 17:45 Urine RBC 1 - 3 /hpf (0-2) 06/20/17 17:45 Urine WBC 5 - 10 /hpf (0-6) 06/20/17 17:45 Ur Epithelial Cells 1 - 3 /hpf (0-5) 06/20/17 17:45 Urine Bacteria Mod (NEG) 06/20/17 17:45 Hyaline Casts 0 - 2 /hpf 06/20/17 17:45 Salicylates < 1 mg/dL (2.0-20.0) L 06/20/17 14:44 Urine Opiates Screen Negative (NEGATIVE) 06/20/17 14:53 Urine Methadone Screen Negative (NEGATIVE) 06/20/17 14:53 Acetaminophen < 10.0 ug/ml (10.0-20.0) L 06/20/17 14:44 Ur Barbiturates Screen Negative (NEGATIVE) 06/20/17 14:53 Ur Phencyclidine Scrn Negative (NEGATIVE) 06/20/17 14:53 Ur Amphetamines Screen Negative (NEGATIVE) 06/20/17 14:53 U Benzodiazepines Scrn Negative (NEGATIVE) 06/20/17 14:53 U Oth Cocaine Metabols Negative (NEGATIVE) 06/20/17 14:53 U Cannabinoids Screen Positive (NEGATIVE) H 06/20/17 14:53 Alcohol, Quantitative < 10 mg/dL (0-10) 06/20/17 14:44 - Hospital Course Hospital Course: Initial History of Present Illness on 06/20/17: "This is a 41 year old female with PMHx Anxiety, bipolar disorder, multiple suicide attempts who presents to the ED brought in by ambulance due to lethargy. Per patient, she states that her son called an ambulance because she was lethargic and sleepy after ingesting multiple medications. Patient herself is offering an unreliable history at this time. Patient states that she took all of the benadryl tablets because of allergy to cat hair. Patient states that the tablets were not working, so she started taking more. Per ED triage, they were contacted by poison control since the patient apparently took 30-40 tablets of Benadryl after having an argument with her boyfriend. Per ED note, patient also took 15 tablets of Klonopin 1 mg after the argument. Per patient, she denies suicidal/homicidal ideation and auditory/visual hallucinations. When asked about the hylton on her left wrist, she replied that she didn't know how they happened." Hospital Course: Patient admitted for drug overdose likely due to suicidal ideation. There was concern of QT interval prolongation due to the ingestion of Benadryl and Klonopin. Patient was admitted and watched on telemetry. EKG in the morning showed improvement and resolution of the prolonged QT interval. Patient was evaluated by psychiatry and was extremely agitated and combative. Medications were ordered, and two code antonio were called on 04/20/18. Patient was to be screened for [facility] [place]; however, on 06/22/17, patient became amenable for voluntary commitment. Patient medically stable for discharge to the psychiatry department for further psychiatric workup and stabilization. This is a summary of the hospital course. For more information, refer to the medical records. Discharge Exam - Head Exam Head Exam: ATRAUMATIC, NORMOCEPHALIC - Eye Exam Eye Exam: EOMI, Normal appearance - ENT Exam ENT Exam: Mucous Membranes Moist - Respiratory Exam Respiratory Exam: Clear to PA & Lateral, NORMAL BREATHING PATTERN. absent: Rales, Rhonchi, Wheezes - Cardiovascular Exam Cardiovascular Exam: REGULAR RHYTHM, +S1, +S2 - GI/Abdominal Exam GI & Abdominal Exam: Normal Bowel Sounds, Soft. absent: Tenderness - Extremities Exam Extremities exam: pedal pulses present - Neurological Exam Neurological exam: Alert, CN II-XII Intact, Oriented x3 - Psychiatric Exam Psychiatric exam: Anxious - Skin Skin Exam: Dry, Warm Additional comments: Multiple cuts on the left wrist. Discharge Plan - Follow Up Plan Condition: STABLE Disposition: DISCHARGE TO PSYCH HOSPITAL Additional Instructions: 1. Transfer to psych floor today. Follow up with PMD of choice. Follow up with neurology as outpatient. Referrals: Dayne Valdivia MD [Primary Care Provider] - <Maru Alex - Last Filed: 06/22/17 14:11> Provider - Provider Date of Admission: 06/20/17 16:24 Attending physician: Maru Alex MD Primary care physician: Dayne Valdivia MD Hospital Course - Lab Results Lab Results: Micro Results 06/21/17 06:30 Urine,Clean Catch Urine Culture - Final No Growth (<1,000 CFU/ML) Most Recent Lab Values WBC 8.0 10^3/ul (4.5-11.0) 06/21/17 11:05 RBC 4.18 10^6/uL (3.5-6.1) 06/21/17 11:05 Hgb 12.3 g/dL (12.0-16.0) 06/21/17 11:05 Hct 37.7 % (36.0-48.0) 06/21/17 11:05 MCV 90.2 fl (80.0-105.0) 06/21/17 11:05 MCH 29.4 pg (25.0-35.0) 06/21/17 11:05 MCHC 32.6 g/dl (31.0-37.0) 06/21/17 11:05 RDW 13.8 % (11.5-14.5) 06/21/17 11:05 Plt Count 332 10^3/uL (120.0-450.0) 06/21/17 11:05 MPV 10.5 fl (7.0-11.0) 06/21/17 11:05 Gran % 52.8 % (50.0-68.0) 06/20/17 14:44 Lymph % (Auto) 33.1 % (22.0-35.0) 06/20/17 14:44 [place] % (Auto) 10.1 % (1.0-6.0) H 06/20/17 14:44 Eos % (Auto) 3.4 % (1.5-5.0) 06/20/17 14:44 Baso % (Auto) 0.6 % (0.0-3.0) 06/20/17 14:44 Gran # 4.37 (1.4-6.5) 06/20/17 14:44 Lymph # (Auto) 2.7 (1.2-3.4) 06/20/17 14:44 [place] # (Auto) 0.8 (0.1-0.6) H 06/20/17 14:44 Eos # (Auto) 0.3 (0.0-0.7) 06/20/17 14:44 Baso # (Auto) 0.05 K/mm3 (0.0-2.0) 06/20/17 14:44 Sodium 148 mmol/L (132-148) 06/21/17 11:05 Potassium 3.4 mmol/L (3.6-5.0) L 06/21/17 11:05 Chloride 108 mmol/L (98-107) H 06/21/17 11:05 Carbon Dioxide 25 mmol/L (21-33) 06/21/17 11:05 Anion Gap 18 (10-20) 06/21/17 11:05 BUN 12 mg/dL (7-21) 06/21/17 11:05 Creatinine 1.4 mg/dl (0.7-1.2) H 06/21/17 11:05 Est GFR ( Amer) 50 06/21/17 11:05 Est GFR (Non-Af Amer) 41 06/21/17 11:05 Random Glucose 94 mg/dL (70-110) 06/21/17 11:05 Calcium 10.0 mg/dL (8.4-10.5) 06/21/17 11:05 Magnesium 1.9 mg/dL (1.7-2.2) 06/20/17 14:44 Total Bilirubin 0.3 mg/dL (0.2-1.3) 06/21/17 11:05 AST 27 U/L (14-36) 06/21/17 11:05 ALT 23 U/L (7-56) 06/21/17 11:05 Alkaline Phosphatase 71 U/L (38-126) 06/21/17 11:05 Total Protein 7.3 g/dL (5.8-8.3) 06/21/17 11:05 Albumin 4.0 g/dL (3.0-4.8) 06/21/17 11:05 Globulin 3.3 gm/dL 06/21/17 11:05 Albumin/Globulin Ratio 1.2 (1.1-1.8) 06/21/17 11:05 Beta HCG, Quant < 2.39 mIU/mL (0-6.15) 06/20/17 14:44 Urine Color Yellow (YELLOW) 06/20/17 17:45 Urine Appearance Clear (CLEAR) 06/20/17 17:45 Urine pH 6.0 (4.7-8.0) 06/20/17 17:45 Ur Specific [place] 1.025 (1.005-1.035) 06/20/17 17:45 Urine Protein Trace mg/dL (<30 mg/dL) H 06/20/17 17:45 Urine Glucose (UA) Negative mg/dL (NEGATIVE) 06/20/17 17:45 Urine Ketones Negative mg/dL (NEGATIVE) 06/20/17 17:45 Urine Blood Negative (NEGATIVE) 06/20/17 17:45 Urine Nitrate Negative (NEGATIVE) 06/20/17 17:45 Urine Bilirubin Negative (NEGATIVE) 06/20/17 17:45 Urine Urobilinogen 0.2 E.U./dL (<1 E.U./dL) 06/20/17 17:45 Ur Leukocyte Esterase Negative Tun[place]/uL (NEGATIVE) 06/20/17 17:45 Urine RBC 1 - 3 /hpf (0-2) 06/20/17 17:45 Urine WBC 5 - 10 /hpf (0-6) 06/20/17 17:45 Ur Epithelial Cells 1 - 3 /hpf (0-5) 06/20/17 17:45 Urine Bacteria Mod (NEG) 06/20/17 17:45 Hyaline Casts 0 - 2 /hpf 06/20/17 17:45 Salicylates < 1 mg/dL (2.0-20.0) L 06/20/17 14:44 Urine Opiates Screen Negative (NEGATIVE) 06/20/17 14:53 Urine Methadone Screen Negative (NEGATIVE) 06/20/17 14:53 Acetaminophen < 10.0 ug/ml (10.0-20.0) L 06/20/17 14:44 Ur Barbiturates Screen Negative (NEGATIVE) 06/20/17 14:53 Ur Phencyclidine Scrn Negative (NEGATIVE) 06/20/17 14:53 Ur Amphetamines Screen Negative (NEGATIVE) 06/20/17 14:53 U Benzodiazepines Scrn Negative (NEGATIVE) 06/20/17 14:53 U Oth Cocaine Metabols Negative (NEGATIVE) 06/20/17 14:53 U Cannabinoids Screen Positive (NEGATIVE) H 06/20/17 14:53 Alcohol, Quantitative < 10 mg/dL (0-10) 06/20/17 14:44 Attending/Attestation - Attestation I have personally seen and examined this patient.: Yes I have fully participated in the care of the patient.: Yes I have reviewed all pertinent clinical information, including history, physical exam and plan: Yes Notes (Text): 06/22/17 14:09 Attending note; Patient seen and examined with resident. Patient is a 41 year old female with PMHx Anxiety, bipolar disorder, multiple suicide attempts who presents to the ED brought in by ambulance due to lethargy. Per patient, she states that her son called an ambulance because she was lethargic and sleepy after ingesting multiple medications. Patient said she took multiple Benadryl pills. Denied suicidal ideation. Creatinine improved. Patient is tolerating diet well. Currently on one-to-one for possible suicidal ideation. Psychiatric evaluation appreciated. Patient is medically stable. involuntary commitment evaluation with [facility] appreciated. Today patient is willing to go to psychiatric department as per . Dr. Velez discussed with [facility]. Patient will be transferred to 5B psychiatric floor today. diagnosis; Benadryl overdose Bipolar disorder
[2017-06-22] MEDS: Sodium Chloride 0.9% 1,000 ML IV SCH (11:16)
[2017-06-22 12:38] VITALS: TEMP 98.4
--- NOTE | 2017-06-22 23:15 | CON ---
DATE: HISTORY OF PRESENT ILLNESS: The patient is a 41-year-old female with history of depression and anxiety who was admitted on the medical floor for intentionally overdosing on Benadryl and Klonopin. Dr. Kaur and Autumn Renee APN saw the patient yesterday and recommended a screening for the patient due to the patient being uncooperative with her caregivers as well as agitation in the unit. Records indicated she was screaming and yelling to the hospital. She was notably paranoid, guarded and irritable, agitated and confused. Benadryl 50 IM were ordered q.6 hours p.r.n. She was ultimately medically cleared and I was requested to follow up with the patient this morning. The patient was in much better mood this morning and much more cooperative. She was a little bit oriented to month, year and circumstances as well as location. The patient admitted that she had a "breakdown" and that she "passed out." She reports that she slept well and feels "a whole lot better." She requests repeatedly to be voluntarily admitted to the Psychiatric Unit at [place] rather than involuntarily committed to [facility] indicating that she would comply with unit rules and remain calm on the psychiatric floor. The patient was coherent, in good control, not actively hallucinating, not disorganized. The responses were and relevant. She appeared grateful of her being given the chance for voluntary admission and indicated that she will cooperate with staff members as well as this provider over the weekend. Vital signs and labs were reviewed by this provider. PSYCHIATRIC MEDICATIONS: Include Klonopin 0.5 mg p.o.. t.i.d., Benadryl 50 mg IM q.6 p.r.n., Haldol 5 mg IM q.6 p.r.n., Seroquel 100 mg p.o. b.i.d., Sonata 10 mg p.o. at bedtime p.r.n. IMPRESSION: By history, bipolar disorder, depressive episode, rule out borderline personality disorder. By history, likely generalized anxiety disorder. RECOMMENDATIONS: At this time, the patient will sign voluntarily in to the psychiatric unit as this is the least restrictive environment for her mental health treatment. She is calm, cooperative, coherent and no longer in acute agitated state. Screening was canceled by this provider. Discussed change in the decision with Dr. Alex. We are both in agreement. Chris Martinez MD
--- NOTE | 2017-06-24 09:17 | CON ---
DATE: 06/21/2017 She was seen today for a consultation. PRESENTATION: Patient is a 41-year-old female seen at bedside. Dr. Kaur in attendance. Patient was admitted to the hospital on 06/20/2017. She indicated she had overdosed on 30 to 40 tablets of Benadryl 25 mg [id number] and 15 mg of Klonopin 1 mg p.o. tablet 2 hours after arguing with her partner. Indicates she called poison control, which advised her to call 911 and come to the ER. She indicated that she vomited once in the ER. Psychiatric consultation was called to ascertain whether it was suicide attempt via medication overdose. Patient gives a quite different story than is documented on the ER sheet. She indicates that she took 2 Benadryl for allergies she had an itchy nose and itchy eyes from a cat, then she took 2 more for a total of 8 and she was not feeling very well, so she ended up having a stomach ache, so her son called 911 and had her brought to the emergency room. Patient indicates that she is very angry because the ER indicated that she had overdosed and that she had taken all that Klonopin and she does not even have any Klonopin and point of fact, her U-tox was negative for benzos. However, patient indicates that she has an extensive psychiatric history, has been hospitalized at least 20 times in the last 4 years, but has not been hospitalized for the last 1 year. She indicates that she does not have any psych history prior to that and she does not know why things started to be so difficult for her at that time. However, she says her life has been good in the past year. She is happy. She is fine. She has a of 10 years with whom she lives along with her 20-year-old son who she gets along well with, but he does not work and he does not go to school. Patient is currently on unemployment. She applied for disability and cannot get it, so she is thinking that she probably should just go back to work. Indicates that she has a history of working in [employer] for [employer] and she is currently looking for job. Her finances are okay and she and her family have enough to eat. PSYCHIATRIC MEDICATIONS: Patient indicates to me that she is on Klonopin 1 mg p.o. b.i.d., Ambien 10 mg one at bedtime, Paxil CR 25 mg, which she says are filled by her Dr. Valdivia, whom she is due to see on 06/24/2017 and that she gets these filled at the [facility] pharmacy. When I called [facility] pharmacy to clarify this, what I find out is that the patient as of 05/31/2017 filled in Adderall XR 15 mg once a day prescription from Dr. Valdivia as well as Seroquel 100 mg 1 p.o. b.i.d. prescription from also on 05/31/2017. The last prescriptions prior to that filled were on 04/27/2017 a 30-day prescription for Klonopin 1 mg p.o. b.i.d., which has not been renewed since, and Ambien 10 mg one at bedtime also filled on 04/27/2017, these were written by . So currently it appears that patient is on Adderall and Seroquel, none of which she mentioned to me. Patient indicates that she has no history of drug or alcohol abuse. She does not use caffeine and she does not smoke cigarettes. She denies any legal history. She has never served in the and denies any access to guns. Denies any family history of depression. Patient indicates she grew up in [place], [place], was #2 of 7 siblings; however, she and the first, her next oldest sibling were the only ones from the same parents. Her mother and father when she was small, but she is close to several of her sisters and keeps in close contact with them. She indicates her childhood was normal. She did well in school. She did very well in [employer], but had trouble with math and science. Denies having any special education services. Indicates she had lots of friends and fit in and took part in school activities. She graduated from high school. Patient indicates that she has held good jobs in the past. She has a good support system. She and her have been having some conflict, but they are recently back together. Her son is her support system as well as some of her sisters and she goes to the [facility] in [place]. I questioned patient as to whether or not there is anyone who we could seek with, would give collateral information because one of the concerns is that she had an argument with the partner, she says that her son called 911. She would not allow us to communicate with anybody for collateral information. She has been hospitalized multiple times here at [facility]. She is well known to the staff and has records we reviewed. PHYSICAL EXAMINATION: VITAL SIGNS: The patient's vital signs today were not taken because patient refused them and looking at the nurses notes from this morning, patient refused her a.m. labs, refused a.m. vitals and she also had refused her vitals from the night before. She has not been cooperative with the unit or team. She is very anxious to go home and be with her son when confronted with the fact that she has a history of multiple suicide attempts, that she is not allowing us to get collateral information, that there is discrepancy of information between what the emergency room documentation shows and what patient presents with. She was offered a voluntary admission on the psych unit. She became extremely agitated, paranoid, started screaming that she was being kept in [facility]. She was being kept here against her will. She refuses to sign in and the concerns were reiterated to her. She was not able to rationally process this. We indicated to her that a second opinion would be necessary, so that this clearance would be called from [facility] because due to all of this, we are not comfortable in discharging her. MENTAL STATUS EXAMINATION: Patient is alert and oriented x3. Her eye contact is fair. Her behavior vacillates from being very, very cooperative to screaming and yelling and out of control. Her mood is labile as is her affect. She quickly switches gears. She denies being suicidal or homicidal. Denies the presence of hallucinations, delusions of paranoia, but she certainly appears to have some paranoia currently with the statements that she is making and her level of agitation. Her focus and concentration are poor. Her memory, both short and long-term may or may not be good. She certainly seems to tell a variety of different things and that are not invested in the truth. Her appetite and sleep she indicates are good. DIAGNOSTIC IMPRESSION: Borderline personality disorder; depressive disorder, unspecified; status post suicide attempt. PLAN: As the patient is still unstable, it is very difficult to properly assess whether or not she is suicidal or homicidal. The opportunity to be able to observe her further for a short inpatient admission depending on how she does would be advisable due to patient's history and presentation. She is not willing to sign in. So she will be screened by [facility] and we will await disposition on that. Patient understands that we are getting a second opinion as we are not comfortable discharging her without having further observation. Medically there is no reason to keep her. Psychiatry will continue to follow. I will endorse this patient to Dr. Martinez for follow up on the weekend. Thank you for the consult. Autumn Renee APN Ariella Kaur MD
== END 2017-06-22 13:36 | DRG 449 ==
LOC: ED 14:06 → ERH 16:24 → 3RSO 19:19
PROVIDERS: ADMIT Internal Medicine; ATTEND Internal Medicine
DX: T45.0X2A Poisoning by antiallergic and antiemetic drugs, intentional self-harm, initial encounter (principal); E87.6 Hypokalemia; F31.9 Bipolar disorder, unspecified; T42.4X2A Poisoning by benzodiazepines, intentional self-harm, initial encounter; F60.3 Borderline personality disorder; F41.1 Generalized anxiety disorder; F17.210 Nicotine dependence, cigarettes, uncomplicated; Y92.009 Unspecified place in unspecified non-institutional (private) residence as the place of occurrence of the external cause; Z91.5 Personal history of self-harm

== ENCOUNTER 2017-06-22 13:42 | Inpatient (IN) | payer MEDICAID ==
[2017-06-22] MEDS ORDERED: Alum-Mag Hydrox-Simethicone Susp (30 mL) PO PRN (14:58)
[2017-06-22] MEDS ORDERED: Magnesium Hydroxide Susp 30 ml UD PO PRN (14:59)
[2017-06-22] MEDS ORDERED: DiphenhydrAMINE 50 mg/ml Inj IM PRN (15:28)
[2017-06-22 15:53] VITALS: O2SAT 96
--- NOTE | 2017-06-22 18:57 | PCM.BM ---
<Julian Peralta - Last Filed: 06/22/17 18:54> Treatment Plan Problems - Problems identified on initial assessmt depression Date Initiated: 06/22/17 Time Initiated: 15:00 Assessment reference: NA Status: Active anxiety Date Initiated: 06/22/17 Time Initiated: 15:00 Assessment reference: NA Status: Active Insomnia Date Initiated: 06/22/17 Time Initiated: 15:00 Assessment reference: NA Status: Active Treatment assets and liabiliti Patient Assests: negotiates basic needs Patient Liabilities: poor support system - Milieu Protocol Maintain good personal hygiene: daily Encourage regular showers, daily Remind patient to perform daily oral care, daily Assist patient to perform ADL's Conduct patient checks and document Observation sheet: Q15 minutes Maintain personal safety: every shift Educate patient to report safety concerns to staff, every shift Monitor environment for contraband/sharps Medication safety: Monitor for expected outcome, potential side effects: every shift, Assess barriers to learning: every shift, Assess readiness for medication education: every shift Discharge/Continuing Care - Education Needs Education Needs: Patient Medication, Patient Diagnosis/Disease Process, Patient Coping Skills, Patient Anger Management skills, Patient Community resources, Patient Activities of Daily Living, Patient Health Practices/Safety, Patient Personal Hygiene/Grooming - Discharge Discharge Criteria: Free of Suicidal thoughts, Free of agitation, Normal sleep pattern, Ability to care for self, Reduction of target symptoms <Chris Martinez - Last Filed: 06/23/17 12:00> - Diagnosis (1) Depression Status: Acute Interventions: group, milieu and supportive tx Seroquel 100 mg po bid for mood stabilization Sonata 10 mg HS prn: insomnia 06/23/17 12:01 06/23/17 12:01 (2) ALEXI (generalized anxiety disorder) Status: Acute Interventions: klonopin 0.5 mg po TID prn: anxiety group, milieu and supportive tx 06/23/17 12:01 06/23/17 12:01 <Anette Go - Last Filed: 06/24/17 15:28>
--- NOTE | 2017-06-23 11:55 | PCM.PSYCH ---
Initial Psychiatric Evaluation - Initial Psychiatric Evaluation Type of Admission: Voluntary Chief Complaint (in patient's own words): "I had a nervous breakdown" History of Present Illness and Precipitating Events: Patient is 41 yo single Female with history of Major Depression, ALEXI, Borderline Personality Disorder, multiple psychiatric admissions-most recently at [facility] in 02/2016, no current psychiatric outpatient f/u or medications, who was transferred from Medicine today after she was medically stabilized s/p overdose on 30-40 tablets of benadryl 25mg and 15 tablets of klonopin 1mg x 2 hours after arguing with her boyfriend. Records indicate that her son called an ambulance because she was lethargic after this ingestion. Other reports indicate that patient called poison control which advised her to call 911. Patient also reported a story in which overdose was not a suicide attempt but accidental overdose on medications because she has bad allergies. While patient was on the medical floor on 06/21/17 patient was very agitated and confused. She was screaming about suing the hospital because "everybody is lying on me, this is a half-way". She was notably paranoid, illogical and difficult to redirect. Multiple code greys were called and screening was initiated after patient was medically cleared. I met with patient at bedside on the medical floor on 06/22/17. She was notably much more oriented and calmer. She apologized for her behavior indicating she had a nervous breakdown. Slept well and reported that she was feeling better and thinking more clearly. Patient reported that she wanted help and wanted it voluntarily at [facility] She agreed to remain in control and comply with treatment recommendations on our unit if involuntary screening was canceled. In general patient's behavior on the psychiatric unit has been a lot calmer than it has been on the medical floor. She still demonstrates low frustration tolerance and impatience but behavior is not loud, accusatory or explosive. She was reluctant to take Seroquel last night (felt it sedated her too much during the day) but finally took dose late at night after difficulty with sleep (even after taking sonata). She is calm again when I speak with her today. She appears tired with constricted affect. Patient is not forthcoming about circumstances of her overdose. She indicates it was an accidental overdose because of allergies. States that she only took 8 pills. She specifically denies any recent stressor precipitating overdose. Reluctant to admit to depression and minimizes events and actions [employer]. She denies hopelessness, SI or HI. Reports she slept well with Seroquel last night and doesn't appear drowsy this morning. PSYCHIATRIC HISTORY Patient has a history of multiple admissions. Most recently at [facility] 03/07-03/14/16 , patient was discharged AMA without any medications. She was also admitted -03/02/16, discharged on zoloft 50 mg PO daily for depression, anxiety and PMS, Geodon 20 mg twice a day for mood stabilization and possible paranoid ideation, Klonopin 0.5 mg twice a day scheduled for anxiety, Ambien 5 mg at the nighttime as needed for insomnia Patient has a history of suicide attempts in the past. Per 02/2016 records patient reported side effects from these prior medications: Prozac was giving pt sedation Effexor was giving pt "pimples" Ativan "was not working for me" Initially pt was saying that Geodon was giving her "side effects, I was feeling very anxious". At the same time pt requested to be on this medication because "it gives me energy". Patient reports that she followed up with a psychiatrist in [place] named Dr. Llamas however has not seen him in about 9 months. SOCIAL HISTORY Born and raised in [place]. Single. Has a 20 yo son. Patient and son reside together. She is unemployed. Patient denies drug or alcohol issues. Indicates she quit tobacco a few months ago. Current Medications: Active Medications Generic Name Dose Route Start Last Admin Trade Name Freq PRN Reason Stop Dose Admin Acetaminophen 650 mg 06/22/17 14:57 Tylenol 325mg Tab PO Q6H PRN Pain, moderate (4-7) Al Hydrox/Mg Hydrox/Simethicone 30 ml 06/22/17 14:58 Maalox Plus 30 Ml PO DAILY PRN Indigestion / Heartburn Clonazepam 0.5 mg 06/22/17 15:03 06/22/17 16:07 Klonopin PO 0.5 mg TID PRN Administration Anxiety Protocol Diphenhydramine HCl 50 mg 06/22/17 15:28 Benadryl IM Q6H PRN Allergy symptoms Haloperidol 5 mg 06/22/17 15:05 Haldol PO Q6H PRN Agitation Protocol Haloperidol Lactate 5 mg 06/22/17 15:30 Haldol IM Q6H PRN Agitation Protocol Magnesium Hydroxide 30 ml 06/22/17 14:59 Milk Of Magnesia PO DAILY PRN Constipation Quetiapine Fumarate 100 mg 06/23/17 08:00 Seroquel PO BID TEJINDER Protocol Zaleplon 10 mg 06/22/17 15:31 06/22/17 22:16 Sonata PO 10 mg HS PRN Administration Insomnia Past Psychiatric History - Past Psychiatric History Pertinent Medical Hx (Current Medical&Sleep Prob, Allergies): Allergies Allergy/AdvReac Type Severity Reaction Status Date / Time Unobtainable Allergy Verified 06/22/17 14:21 DiphenhydrAMINE [Benadryl] 50 mg IM Q6H PRN vial 06/21/17 Fluticasone/Salmeterol [Fluticasone-Salmeterol 113-14] 1 puff NS BID 06/21/17 Haloperidol Lactate [Haldol] 5 mg IM Q6H PRN vial 06/21/17 QUEtiapine [Seroquel] 100 mg PO BID 06/21/17 clonazePAM [Klonopin] 0.5 mg PO TID PRN tab 06/21/17 Zaleplon [Sonata] 10 mg PO HS PRN cap 06/22/17 Mental Status Examination - Personal Presentation Personal Presentation: Looks stated age - Affect Affect: Constricted - Motor Activity Motor Activity: Calm - Reliability in Providing Information Reliability in Providing Information: Poor, due to alteration in thoughts ( Inconsistent historian about recent events) - Speech Speech: Organized - Formal Thought Process Formal Thought Process: No Impairment - Obsessions/Compulsions Obsessions: No Compulsions: No - Cognitive Functions Orientation: Person, Place, Situation Sensorium: Alert Attention/Concentration: Attentive Estimate of Intelligence: Average Judgement: Imparied, as evidence by: Poor judgement, Imparied, as evidence by: Lack of insight into illness - Risk Risk: Suicidal, Diminished functioning DSM 5 DX - DSM 5 DSM 5 Diagnosis: Major Depression by history ALEXI Borderline Personality Disorder - Recommended/Plan of Treatment Treatment Recommendations and Plan of Treatment: * group, milieu and supportive tx * Seroquel 100 mg po bid for mood stabilization * klonopin 0.5 mg po TID prn: anxiety * Sonata 10 mg HS prn: insomnia * Haldol 5 + Benadryl 50 mg q6 prn: agitation * Awaiting medical follow up * Vitals reviewed and noted below: 06/22/17 15:52 Temperature 98.3 F Pulse Rate 100 H Respiratory 20 Rate Blood Pressure 98/50 L O2 Sat by Pulse 96 Oximetry * No new weekend labs thus far. - Smoking Cessation Smoking Cessation Initiated: No
--- NOTE | 2017-06-23 12:02 | CP.PCM.CON ---
<Suraj Lozoya - Last Filed: 06/23/17 15:43> History of Present Illness - History of Present Illness History of Present Illness: Medicine Consult Note for Dr. Alex Hospitalist Service: Reason for consult: Medical evaluation This is a 41 year old female with PMHx Anxiety, bipolar disorder, multiple suicide attempts who presents to the ED brought in by ambulance due to lethargy. Patient admitted to the acute care hospital for drug overdose likely due to suicidal ideation. There was concern of QT interval prolongation due to the ingestion of Benadryl and Klonopin. Patient was admitted and watched on telemetry. EKG in the morning showed improvement and resolution of the prolonged QT interval. Patient was evaluated by psychiatry and was extremely agitated and combative. Medications were ordered, and two code antonio were called on 04/20/18. Patient was to be screened for [facility] for involuntary commitment; however, on 06/22/17, patient became amenable for voluntary commitment. Patient deemed medically stable for discharge to the psychiatry department on 06/22/17 for further psychiatric workup and stabilization. Patient was seen and examined in the psychiatric unit today. Patient complained of swelling in the right hand on her third digit. Patient states that her finger got caught in a bucket that her son pulled away too quick before she could react. Patient states that this occurred on Saturday. Patient states that the pain is tolerable, but she cannot bend the finger fully. Patient offers no other acute complaints at this time. PMHx: Anxiety, Bipolar disorder, Depression, multiple suicide attempts PSHx: Denies Allergies: Cat hair Social Hx: Current smoker 1 pack per day for the past 21 years. Denies alcohol, drugs. Lives at home with son and "," but later stated only living with the son. Per patient, the son is in a gang. Patient is not currently employed. Family Hx: Denies, but upon review of the EMR, the son has stated in the past that aunt and cousin have history of seizure. Also per EMR, the son also had a seizure following benzo overdose PMD: Dr. Valdivia Psychiatrist: Dr. Llamas [place] medications as per pharmacy: Fluticasone/sameterol 113/14 mcg 1 puff Q12H, Aderall ER 15 mg daily, Seroquel 100 mg PO BID, Klonopin 1 mg PO BID, Ambien 10 mg daily. The Klonopin, Ambien, Aderall were prescribed by Loren Kenny APN. Review of Systems - Constitutional Constitutional: absent: Chills, Fever - EENT Eyes: absent: Change in Vision Ears: absent: Decreased Hearing Nose/Mouth/Throat: absent: Nasal Congestion - Cardiovascular Cardiovascular: absent: Chest Pain - Respiratory Respiratory: absent: Dyspnea - Gastrointestinal Gastrointestinal: absent: Abdominal Pain, Nausea, Vomiting - Genitourinary Genitourinary: absent: Dysuria - Musculoskeletal Musculoskeletal: Other (right third digit pain) - Integumentary Integumentary: Swelling (right third digit swelling) - Neurological Neurological: absent: Weakness - Psychiatric Psychiatric: absent: Anxiety - Endocrine Endocrine: absent: Palpitations Past Patient History - Infectious Disease Hx of Infectious Diseases: None - Tetanus Immunizations Tetanus Immunization: Unknown - Past Medical History & Family History Past Medical History?: Yes - Past Social History Smoking Status: Light Smoker < 10 Cigarettes Daily - CARDIAC Hx Cardiac Disorders: No Hx Hypertension: No Hx Peripheral Edema: Yes (ble +1) - PULMONARY Hx Respiratory Disorders: No Hx Tuberculosis: No - NEUROLOGICAL Hx Neurological Disorder: No Hx Seizures: No - HEENT Hx HEENT Problems: No - RENAL Hx Chronic Kidney Disease: No - ENDOCRINE/METABOLIC Hx Endocrine Disorders: No - HEMATOLOGICAL/ONCOLOGICAL Hx Blood Disorders: No Hx Cancer: No - INTEGUMENTARY Hx Dermatological Problems: No - MUSCULOSKELETAL/RHEUMATOLOGICAL Hx Musculoskeletal Disorders: No Hx Falls: No - GASTROINTESTINAL Hx Gastrointestinal Disorders: Yes (obese) - GENITOURINARY/GYNECOLOGICAL Hx Genitourinary Disorders: No Hx Sexually Transmitted Disorders: No - PSYCHIATRIC Hx Anxiety: Yes Hx Bipolar Disorder: Yes Hx Depression: Yes Hx Substance Use: No - SURGICAL HISTORY Hx Surgeries: No - ANESTHESIA Hx Anesthesia: No Meds Allergies/Adverse Reactions: Allergies Allergy/AdvReac Type Severity Reaction Status Date / Time Unobtainable Allergy Verified 06/22/17 14:21 - Medications Medications: Current Medications Acetaminophen (Tylenol 325mg Tab) 650 mg PO Q6H PRN PRN Reason: Pain, moderate (4-7) Al Hydrox/Mg Hydrox/Simethicone (Maalox Plus 30 Ml) 30 ml PO DAILY PRN PRN Reason: Indigestion / Heartburn Clonazepam (Klonopin) 0.5 mg PO TID PRN; Protocol PRN Reason: Anxiety Last Admin: 06/23/17 11:20 Dose: 0.5 mg Diphenhydramine HCl (Benadryl) 50 mg IM Q6H PRN PRN Reason: Allergy symptoms Haloperidol (Haldol) 5 mg PO Q6H PRN; Protocol PRN Reason: Agitation Haloperidol Lactate (Haldol) 5 mg IM Q6H PRN; Protocol PRN Reason: Agitation Magnesium Hydroxide (Milk Of Magnesia) 30 ml PO DAILY PRN PRN Reason: Constipation Quetiapine Fumarate (Seroquel) 100 mg PO BID TEJINDER PRN Reason: Protocol Zaleplon (Sonata) 10 mg PO HS PRN PRN Reason: Insomnia Last Admin: 06/22/17 22:16 Dose: 10 mg Physical Exam - Constitutional Appears: No Acute Distress - Head Exam Head Exam: ATRAUMATIC, NORMOCEPHALIC - Eye Exam Eye Exam: EOMI, Normal appearance - ENT Exam ENT Exam: Mucous Membranes Moist - Respiratory Exam Respiratory Exam: Clear to Auscultation Bilateral, NORMAL BREATHING PATTERN. absent: Rales, Rhonchi, Wheezes - Cardiovascular Exam Cardiovascular Exam: REGULAR RHYTHM, +S1, +S2 - GI/Abdominal Exam GI & Abdominal Exam: Normal Bowel Sounds, Soft. absent: Distended, Guarding, Tenderness - Extremities Exam Extremities exam: Negative for: pedal edema Additional comments: Swelling of the third digit of the right hand. Painful to palpation. Patient able to fully close her hand albeit with difficulty. - Neurological Exam Neurological exam: Alert, CN II-XII Intact, Oriented x3 - Psychiatric Exam Psychiatric exam: Normal Affect, Normal Mood - Skin Skin Exam: Dry, Warm Results - Vital Signs Recent Vital Signs: Last Vital Signs Temp 98.3 F 06/22/17 15:52 Pulse 100 H 06/22/17 15:52 Resp 20 06/22/17 15:52 BP 98/50 L 06/22/17 15:52 Pulse Ox 96 06/22/17 15:52 Assessment & Plan - Assessment and Plan (Free Text) Assessment: This is a 41 year old female with PMHx Anxiety, bipolar disorder, multiple suicide attempts who initially presented to the ED brought in by ambulance due to lethargy. This is due to ingesting a large amount of Benadryl and Klonopin per EMR. Patient came in initially with QT prolongation which has since resolved as evidenced by repeat EKG. Patient is medically stable for psychiatric stay. Plan: 1. Medication overdose due to possible suicide attempt Avoid QT prolonging agents unless absolutely necessary The repeat EKG showed resolution of QT prolongation Medication Management per psychiatry 2. Hypokalemia It was repleted since the last set of lab studies. Patient encouraged to eat potassium containing foods. Repeat BMP ordered for tomorrow. Supplement if necessary. 3. Right Hand Third digit swelling X-rays of the third digit of the right hand demonstrate no acute fractures or dislocation. It only demonstrates soft tissue swelling. Conservative therapy including rest and ice. Continue Tylenol for pain if needed Disposition: Medically stable for psychiatric hospital stay. We will sign off at this time. Please re-consult if necessary. Patient seen and discussed with Dr. Alex <Maru Alex - Last Filed: 06/23/17 18:29> Meds - Medications Medications: Current Medications Acetaminophen (Tylenol 325mg Tab) 650 mg PO Q6H PRN PRN Reason: Pain, moderate (4-7) Al Hydrox/Mg Hydrox/Simethicone (Maalox Plus 30 Ml) 30 ml PO DAILY PRN PRN Reason: Indigestion / Heartburn Clonazepam (Klonopin) 0.5 mg PO TID PRN; Protocol PRN Reason: Anxiety Last Admin: 06/23/17 11:20 Dose: 0.5 mg Diphenhydramine HCl (Benadryl) 50 mg IM Q6H PRN PRN Reason: Allergy symptoms Haloperidol (Haldol) 5 mg PO Q6H PRN; Protocol PRN Reason: Agitation Haloperidol Lactate (Haldol) 5 mg IM Q6H PRN; Protocol PRN Reason: Agitation Magnesium Hydroxide (Milk Of Magnesia) 30 ml PO DAILY PRN PRN Reason: Constipation Last Admin: 06/23/17 13:41 Dose: 30 ml Quetiapine Fumarate (Seroquel) 100 mg PO BID TEJINDER PRN Reason: Protocol Last Admin: 06/23/17 12:49 Dose: 100 mg Zaleplon (Sonata) 10 mg PO HS PRN PRN Reason: Insomnia Last Admin: 06/22/17 22:16 Dose: 10 mg Results - Vital Signs Recent Vital Signs: Last Vital Signs Temp 98.3 F 06/22/17 15:52 Pulse 100 H 06/22/17 15:52 Resp 20 06/22/17 15:52 BP 98/50 L 06/22/17 15:52 Pulse Ox 96 06/22/17 15:52 Attending/Attestation - Attestation I have personally seen and examined this patient.: Yes I have fully participated in the care of the patient.: Yes I have reviewed all pertinent clinical information: Yes Notes (Text): 06/23/17 18:27 Attending note; Patient seen and examined with resident in 5 B. Patient was initially admitted to the medical floor for overuse of Benadryl. Patient was transferred to psychiatric floor yesterday. Medically stable. Right hand swelling after injury. X-rays negative for fracture. Continue Tylenol for pain. Please reconsult as needed. Thank you for the courtesy of this consultation. 06/23/17 18:28
--- NOTE | 2017-06-23 14:07 | RAD ---
PROCEDURE: Right middle finger radiographs. HISTORY: finger injury COMPARISON: None. TECHNIQUE: AP radiograph of the right hand, as well as spot oblique and lateral images of right middle finger were obtained. FINDINGS: RIGHT MIDDLE FINGER: Right middle finger normal, without acute fracture of focal lesion. Remainder of the right hand (as seen on the AP view) grossly unremarkable. JOINTS: Normal. SOFT TISSUES: There is diffuse soft tissue swelling in the 3rd finger. OTHER FINDINGS: None. IMPRESSION: No acute fracture or dislocation. Diffuse soft tissue swelling in the 3rd finger.
--- NOTE | 2017-06-24 15:01 | PCM.PYCHPN ---
Psychiatric Progress Note - Psychiatric Progress Note Patient seen today, length of contact: 30min Patient Chief Complaint: ""I was doing perfectly fine" Problems Identified/Issues Discussed: Suicide/ homicide prevention, past psychiatric h/o, current psychiatric symptoms , medical problems, risk/benefits and alternatives of medications, medications compliance, coping strategies, substance abuse h/o, relapse prevention, importance of follow up with psychiatrist and therapist, discharge plan. Medical Problems: obesity, hypokalemia, s/p ? overdose on benadryl Diagnostic Results: Vital Signs Temp Pulse Pulse Resp BP Pulse Ox 06/24/17 07:33 98.1 F 74 18 89/55 L 06/22/17 15:52 98.3 F 100 H 20 98/50 L 96 06/22/17 14:28 68 18 DSM 5 Symptoms Update: Patient is 41 yo single Female with history of Major Depression, ALEXI, Borderline Personality Disorder, multiple psychiatric admissions-most recently at [facility] in 02/2016, no current psychiatric outpatient f/u or medications, who was transferred from Medicine today after she was medically stabilized s/p overdose on 30-40 tablets of benadryl 25mg and 15 tablets of klonopin 1mg x 2 hours after arguing with her boyfriend. Records indicate that her son called an ambulance because she was lethargic after this ingestion. Other reports indicate that patient called poison control which advised her to call 911. Patient also reported a story in which overdose was not a suicide attempt but accidental overdose on medications because she has bad allergies. While patient was on the medical floor on 06/21/17 patient was very agitated and confused. She was screaming about suing the hospital because "everybody is lying on me, [facility] [place] [facility]". She was notably paranoid, illogical and difficult to redirect. Multiple code greys were called and screening was initiated after patient was medically cleared. pt was seen at the treatment team meeting, pt presented calmer, pt was providing inconsistent and conflicting stories. pt said that she got a kitten few days prior to come to the hospital, but when was on the medical floor pt said that she had that cat for a year. Pt said "I was doing just fine, I was perfectly fine, I have great relationship with my boyfriend", at the same side pt was not giving permission to speak to the family saying "My son has no phone, I don't remember my boyfriend's phone number ", later on pt gave consent for collaterals from the son. pt is still not ready for discharge. pt submitted 48hr notice. later on pt asked if it is possible to be started on Wellbutrin. as per staff pt is labile, but no agitation or aggression. Per 02/2016 records patient reported side effects from these prior medications: Prozac was giving pt sedation Effexor was giving pt "pimples" Ativan "was not working for me" Initially pt was saying that Barry was giving her "side effects, I was feeling very anxious". At the same time pt requested to be on this medication because "it gives me energy". Patient reports that she followed up with a psychiatrist in [place] named Dr. Llamas however has not seen him in about 9 months. Impression: r/o bipolar disorder h/o borderline personality disorder Medication Change: Yes (wellbutrin and seroquel) Medical Record Reviewed: Yes Consults ordered or reviewed: medical consult appreciated Mental Status Examination - Cognitive Function Orientation: Person, Place, Situation Memory: Intact Attention: Poor (better) Concentration: Poor (better) Association: WNL Fund of Knowledge: WNL - Mood Mood: Anxious - Affect Affect: Constricted - Formal Thought Process Formal Thought Process: No Impairment - Suicidal Ideation Suicidal Ideation: No Plan: pt denied - Homicidal Ideation Homicidal Ideation: No Plan: pt denied Goal/Treatment Plan - Goal/Treatment Plan Need for Continued Stay: Remain at risks for inpatient hospitalization, Severe depression anxiety, Discharge may exacerbated symptoms, Severe functional impairment Progress Toward Problem(s) and Goals/Treatment Plan: group, milieu and supportive tx Seroquel 100 mg po bid for mood stabilization klonopin 0.5 mg po TID prn: anxiety Sonata 10 mg HS prn: insomnia Haldol 5 + Benadryl 50 mg q6 prn: agitation family involvement SW evaluation risk, benefits and alternatives of meds discussed with pt will monitor closely Estimated Date of D/C: 06/28/17
--- NOTE | 2017-06-25 16:53 | PCM.PYCHPN ---
Psychiatric Progress Note - Psychiatric Progress Note Patient seen today, length of contact: 30min Patient Chief Complaint: " I am ready to go home..." Problems Identified/Issues Discussed: Suicide/ homicide prevention, past psychiatric h/o, current psychiatric symptoms , medical problems, risk/benefits and alternatives of medications, medications compliance, coping strategies, substance abuse h/o, relapse prevention, importance of follow up with psychiatrist and therapist, discharge plan. Medical Problems: obesity, hypokalemia, s/p ? overdose on benadryl Diagnostic Results: Vital Signs Temp Pulse Pulse Resp BP Pulse Ox 06/24/17 07:33 98.1 F 74 18 89/55 L 06/22/17 15:52 98.3 F 100 H 20 98/50 L 96 06/22/17 14:28 68 18 DSM 5 Symptoms Update: Patient is 41 yo single Female with history of Major Depression, ALEXI, Borderline Personality Disorder, multiple psychiatric admissions-most recently at [facility] in 02/2016, no current psychiatric outpatient f/u or medications, who was transferred from Medicine today after she was medically stabilized s/p overdose on 30-40 tablets of benadryl 25mg and 15 tablets of klonopin 1mg x 2 hours after arguing with her boyfriend. Records indicate that her son called an ambulance because she was lethargic after this ingestion. Other reports indicate that patient called poison control which advised her to call 911. Patient also reported a story in which overdose was not a suicide attempt but accidental overdose on medications because she has bad allergies. While patient was on the medical floor on 06/21/17 patient was very agitated and confused. She was screaming about suing the hospital because "everybody is lying on me, this is a [facility]". She was notably paranoid, illogical and difficult to redirect. Multiple code greys were called and screening was initiated after patient was medically cleared. pt was seen in her room, pt refused to rescind 48hr notice. pt said she feels better, denied thoughts of harming self or others. pt denied v/a/t hallucinations. pt c/o insomnia, trazodone increased. pt has scratches on her left forearm, very superficial, seems to be old, when was asked "it is my cat", pt is not forthcoming with information. as per staff pt is compliant with meds, no agitation, has good appetite and sleep. pt tolerated meds well, no side effects observed or reported, AIMS 0, no EPS. Impression: r/o bipolar disorder h/o borderline personality disorder Medication Change: Yes (wellbutrin and seroquel) Medical Record Reviewed: Yes Consults ordered or reviewed: medical consult appreciated Mental Status Examination - Cognitive Function Orientation: Person, Place, Situation Memory: Intact Attention: Poor (better) Concentration: Poor (better) Association: WNL Fund of Knowledge: WNL - Mood Mood: Depressed (denied being depressed), Anxious - Affect Affect: Constricted - Formal Thought Process Formal Thought Process: No Impairment - Suicidal Ideation Suicidal Ideation: No - Homicidal Ideation Homicidal Ideation: No Goal/Treatment Plan - Goal/Treatment Plan Need for Continued Stay: Remain at risks for inpatient hospitalization, Severe depression anxiety, Discharge may exacerbated symptoms, Severe functional impairment Progress Toward Problem(s) and Goals/Treatment Plan: group, milieu and supportive tx Seroquel 100 mg po bid for mood stabilization wellbutrin 75mg po bid for depression trazodone 100mg po hs for insomnia and depression pt submitted 48hr notice, refused to rescind it pt does not meet a criteria for [facility] screening Haldol 5 + Benadryl 50 mg q6 prn: agitation family involvement SW evaluation risk, benefits and alternatives of meds discussed with pt will monitor closely Estimated Date of D/C: 06/28/17
[2017-06-25] MEDS ORDERED: Alum-Mag Hydrox-Simethicone Susp (30 mL) PO PRN (17:16)
[2017-06-26 07:21] VITALS: BP 116/75; PULSE 93; RESP 20; TEMP 98.5
--- NOTE | 2017-06-26 13:24 | PCM.PYCHDC ---
Mental Status Examination - Mental Status Examination Orientation: Person, Place, Situation, Time Memory: Intact Mood: Neutral Affect: Broad (and mood congruent) Speech: Appropriate Attention: WNL Concentration: WNL (improvemetn) Association: WNL Fund of Knowledge: WNL Formal Thought Process: No Impairment Description of patient's judgement and insight: Pt has improved insight into mental and medical illness, pt was compliant with medications and unit rules and regulations, pt was going to groups, was calm, cooperative, socially appropriate, no behavioral incidents, no agitation, no aggression. Psychotic Thoughts and Behaviors: Pt denied v/a/t hallucinations, denied paranoid ideations, pt does not appear to be psychotic, and thought process is goal directed. Suicidal Ideation: No Current Homicidal Ideation?: No Plan: pt adamantly denied thoughts of harming self or others denied intent or plan. Discharge Summary - Discharge Note Reason for Hospitalization: possible suicidal ideation Psychiatric History (includes Medical, Family, Personal Hx): h/o mental illness Laboratory Data: Vital Signs Temp Pulse Pulse Resp BP Pulse Ox 06/26/17 07:20 98.5 F 93 H 20 116/75 06/25/17 15:00 95 H 103/75 06/25/17 06:46 98.6 F 80 16 105/67 06/24/17 16:00 95 H 135/79 06/24/17 07:33 98.1 F 74 18 89/55 L 06/22/17 15:52 98.3 F 100 H 20 98/50 L 96 06/22/17 14:28 68 18 labs see from the medical admission Consultations:: List each consultation separately and include: 1. Reason for request. 2. Findings. 3. Follow-up Consultations: medical consult appreciated please see notes for more detailed information Summary of Hospital Course include:: 1. Description of specific treatment plan utilized for patients during their course of treatmen. 2. Summarize the time- course for resolution of acute symptoms and/or regressed behaviors. 3. Describe issues identified and worked on during hospitalization. 4. Describe medication utilized. 5. Describe medical problems identified and treated. 6. Reassessment of suicide risk Summary of Hospital Course: Patient is 41 yo single Female with history of Major Depression, ALEXI, Borderline Personality Disorder, multiple psychiatric admissions-most recently at [facility] in 02/2016, no current psychiatric outpatient f/u or medications, who was transferred from Medicine today after she was medically stabilized s/p overdose on 30-40 tablets of benadryl 25mg and 15 tablets of klonopin 1mg x 2 hours after arguing with her boyfriend. Records indicate that her son called an ambulance because she was lethargic after this ingestion. Other reports indicate that patient called poison control which advised her to call 911. Patient also reported a story in which overdose was not a suicide attempt but accidental overdose on medications because she has bad allergies. While patient was on the medical floor on 06/21/17 patient was very agitated and confused. She was screaming about suing the hospital because "everybody is lying on me, [facility]". She was notably paranoid, illogical and difficult to redirect. Multiple code greys were called and screening was initiated after patient was medically cleared. pt eventually signed consent for treatment for voluntary admission. over this hospitalization pt was providing inconsistent stories, at the same time refusing to give consent for collaterals, eventually pt provided the phone number which belonged to unrelated to the pt person. during this admission pt improved significantly was stabilized on the following medications: Seroquel 100 mg po bid for mood stabilization wellbutrin 75mg po bid for depression trazodone 100mg po hs for insomnia and depression pt submitted 48hr notice, refused to rescind it pt does not meet a criteria for [facility] screening was d/c AMA, pt has capacity to make that decision. pt was observed in the unit for more than 4 days, pt does not have behavioral issues, was polite and cooperative, socially appropriate. At the time of the discharge pt denied been depressed, denied thoughts of harming self or others, denied psychotic symptoms, and pt does not appeared to be psychotic, denied been anxious, pt is not in imminent danger to self or others, will be following up at [facility] information about follow up appointment, time and address provided to the pt, it is patient responsibility to follow up with outpatient clinic, PMD as well as specialists ( see SW note for more detailed information). In case pt will need to obtain results of studies pending at discharge pt was provided with contact information of Psychiatric Inpatient unit [phone] as well as Medical Record Department [phone]. pt denied using drugs, denied smoking pt was prescribed all of her meds for1 week and three refills. pt was provided with prescriptions for all of medications (please see medication reconciliation form) Pt was educated about safety plan in case of worsening of symptoms or in case of suicidal or homicidal ideation call 911 or go to the nearest ER, also was educated to take meds as prescribed and stay away from drugs, pt verbalized understanding. - Diagnosis (1) History of bipolar disorder Status: Chronic Priority: High (2) History of borderline personality disorder Status: Chronic Priority: High - Final Diagnosis (DSM 5) Condition upon Discharge: GOOD Disposition: AGAINST MEDICAL ADVICE Follow-up Treatment Plan: At the time of the discharge pt denied been depressed, denied thoughts of harming self or others, denied psychotic symptoms, and pt does not appeared to be psychotic, denied been anxious, pt is not in imminent danger to self or others, will be following up at [facility]., information about follow up appointment, time and address provided to the pt, it is patient responsibility to follow up with outpatient clinic, PMD as well as specialists ( see SW note for more detailed information). In case pt will need to obtain results of studies pending at discharge pt was provided with contact information of Psychiatric Inpatient unit [phone] as well as Medical Record Department [phone]. pt denied using drugs, denied smoking pt was prescribed all of her meds for1 week and three refills. pt was provided with prescriptions for all of medications (please see medication reconciliation form) Pt was educated about safety plan in case of worsening of symptoms or in case of suicidal or homicidal ideation call 911 or go to the nearest ER, also was educated to take meds as prescribed and stay away from drugs, pt verbalized understanding. Prescriptions/Medication Reconciliation: buPROPion XL [Wellbutrin] 150 mg PO DAILY #7 t24 QUEtiapine [Seroquel] 100 mg PO BID #14 tab traZODone [Desyrel] 100 mg PO HS #7 tab - Smoking Cessation Smoking Cessation Medication prescribed: No Reason for not providing: denied smoking - Antipsychotic Medications Pt discharged on 2 or more routine antipsychotic medications: No
== END 2017-06-26 11:46 | disposition left against medical advice (07) | DRG 430 ==
LOC: PSYC 13:42 → UNDODISIN 06-25 12:47 → PSYC 06-25 13:23
PROVIDERS: ADMIT Psychiatry & Neurology Psychiatry; ATTEND Psychiatry & Neurology Psychiatry
PROC: GZ3ZZZZ Medication Management (ICD-10-PCS; principal; 2017-06-22)
DX: F31.9 Bipolar disorder, unspecified (principal); F60.3 Borderline personality disorder; F41.1 Generalized anxiety disorder; E66.9 Obesity, unspecified; G47.00 Insomnia, unspecified; F17.210 Nicotine dependence, cigarettes, uncomplicated; Z91.5 Personal history of self-harm